=== PATIENT | male | born 1965 | race Caucasian/White ===

== ENCOUNTER 2020-06-02 09:15 | Outpatient (CLI) | payer OTHER, SELFPAY ==
[2020-06-02 10:04] LABS: Anion Gap 7 mmol/L (8-16); Blood Urea Nitrogen 31 mg/dL (9-20); Calcium 8.8 mg/dL (8.4-10.2); Carbon Dioxide 24 mmol/L (22-30); Chloride 106 mmol/L (98-107); Estimated Glomerular Filt Rate > 60; Glucose 167 mg/dL (75-110); Magnesium 1.8 mg/dL (1.6-2.3); Potassium 4.5 mmol/L (3.4-5.0); Sodium 137 mmol/L (137-145)
== END 2020-06-02 09:16 | disposition home or self-care (01) ==
PROVIDERS: PCP Family Medicine; Visit Provider Family Medicine
DX: R25.2 Cramp and spasm (principal)
CPT/HCPCS: 36415; 80048; 83735

== ENCOUNTER 2020-09-03 07:13 | Outpatient (CLI) | payer OTHER, SELFPAY ==
[2020-09-03 07:49] LABS: Cholesterol 144 mg/dL (0-200); HDL Direct 38 mg/dL; Triglycerides 246 mg/dL (<150)
[2020-09-03 07:59] LABS: Hemoglobin A1C 5.9 % (<5.7)
[2020-09-03 08:01] LABS: LDL Cholesterol Direct 48 mg/dL
== END 2020-09-03 07:14 | disposition home or self-care (01) ==
LOC: ANHLAB 07:14
PROVIDERS: PCP Family Medicine; Visit Provider Family Medicine
DX: E78.2 Mixed hyperlipidemia (principal); E11.9 Type 2 diabetes mellitus without complications
CPT/HCPCS: 36415; 80061; 83036

== ENCOUNTER 2020-09-20 13:55 | Inpatient (IN) | payer OTHER, SELFPAY ==
[2020-09-20] VITALS (35 sets, daily range): BP systolic 104–157; BP diastolic 64–88; PULSE 86–105; RESP 16–28; TEMP 37.8–38.3; O2SAT 90–99; BMI 40.3
--- NOTE | ~2020-09-20 | XR_ITS ---
EXAMINATION: XR chest 1V portable DATE: 09/23/2020 06:16 INDICATION: Shortness of breath and cough. COVID-19 pneumonia. TECHNIQUE: A single frontal view of the chest was obtained. COMPARISON: Chest single view 09/20/2020, 11/20/2019 FINDINGS: The lung volumes are small. There are patchy airspace opacities throughout the lungs bilate rally. No pleural effusion or pneumothorax. The heart size is normal. IMPRESSION: 1. Stable diffuse lung disease, consistent with pneumonia. Reviewed, dictated and finalized at location B. NT TECHNICAL PROFESSIONAL
--- NOTE | ~2020-09-20 | XR_ITS ---
EXAMINATION: XR chest 1V portable DATE: 09/20/2020 16:19 INDICATION: COVID positive. Cough and weakness. TECHNIQUE: frontal view of the chest was obtained. COMPARISON: Chest radiograph dated 11/20/2019 FINDINGS: Bilateral lung volumes are decreased with bilateral patchy and streaky airspace opacities throughout both lungs which is concerning for pneumonia. No pleural effusion or pneumothorax. The cardiomediasti nal silhouette is within normal limits for AP technique. IMPRESSION: 1. Diffuse bilateral lung disease which is concerning for pneumonia with differential including pulmo nary edema, atelectasis or some combination thereof. Reviewed, dictated and finalized at location A. OL GUARD IMPRESSION: 1. Diffuse bilateral lung disease which is concerning for pneumonia with differ ential including pulmonary edema, atelectasis or some combination thereof.
--- NOTE | ~2020-09-20 | XR_ITS ---
EXAMINATION: XR abdomen obstructive series DATE: 09/23/2020 16:23 INDICATION: Nausea and vomiting TECHNIQUE: Upright and supine views of the abdomen were obtained on four radiographs. COMPARISON: None. FINDINGS: There is no free intraperitoneal gas. No definitely dilated loops of bowel are identified. There is mild osteoarthritis of the hips. IMPRESSION: 1. Nonspecific bowel gas pattern. If there is concern for bowel obstruction, consider further evaluat ion with CT. Reviewed, dictated and finalized at location A. CTOR DATA MANAGEMENT IMPRESSION: 1. Nonspecific bowel gas pattern. If there is concern for bowel obstruction, co nsider further evaluation with CT.
--- NOTE | 2020-09-20 14:33 | ED.GENADULT ---
HPI - General Adult General Chief complaint: Weakness Stated complaint: covid Time Seen by Provider: 09/20/20 14:26 Source: patient History of Present Illness HPI narrative: Patient is a 55 y/o male complaining of generalized weakness, nausea and vomiting for 1 week. He has been vomiting 1-2 time daily. He states that he tested positive for COVID approximately 1 week ago. He has some fever up to 101.2 this morning. He also has a cough, but no SOB. Related Data Home Medications Medication Instructions Recorded Confirmed atorvastatin 20 mg PO DAILY 09/20/20 donepezil 23 mg PO DAILY 09/20/20 hydrochlorothiazide 12.5 mg PO DAILY 09/20/20 ketorolac (PF) 1 drp LEFTEYE Q12H 09/20/20 oxybutynin chloride 10 mg PO DAILY 09/20/20 09/20/20 sitagliptin [Januvia] 100 mg PO DAILY 09/20/20 09/20/20 Allergies Allergy/AdvReac Type Severity Reaction Status Date / Time Penicillins Allergy Rash Verified 09/20/20 14:34 lactose AdvReac Diarrhea Verified 09/20/20 14:34 metformin AdvReac Diarrhea Verified 09/20/20 14:34 Review of Systems Constitutional: Constitutional: Denies chills, Reports fever(s), Denies headache(s) and Reports weakness Eyes: Eyes: Denies blurry vision ENT: Denies headache(s) and Denies neck pain Cardiovascular: Cardiovascular: Denies chest pain and Denies dyspnea Respiratory: Respiratory: Reports cough and Denies dyspnea Gastrointestinal: Gastrointestinal: Denies abdominal pain, Denies diarrhea, Reports nausea and Reports vomiting Genitourinary: Genitourinary: Denies hematuria and Denies dysuria Musculoskeletal: Musculoskeletal: Denies back pain and Denies neck pain Neurologic: Denies headache(s) and Reports weakness Exam Const: General: no acute distress and well developed Orientation/consciousness: oriented to person, oriented to place, oriented to time and patient oriented x3 HENMT: Head: normocephalic Ears: external ears normal General nose exam: Normal external nose present Eyes: General: appearance normal, both eyes and all related structures Conjunctivae: conjunctivae normal Neck: Neck: normal visual inspection and full ROM Chest: Chest palpation & inspection: normal inspection of the chest and no tenderness Resp: Effort & Inspection: normal respiratory effort Auscultation: clear to auscultation bilaterally Cardio: Rate: tachycardic Rhythm: regular rhythm GI: GI Palp: No abdominal tenderness and Yes Soft to palpation Skin: General skin exam: normal color and turgor normal Neuro: General: oriented to person, oriented to place, oriented to time and patient oriented x3 Cognition (Neuro): normal cognition Extrem: General: normal to inspection, full ROM and no pedal edema Psych: Appearance: grossly normal Mental Status: mental status grossly normal Affect: normal affect Course Consultations Consultation #1: Discussed with SASH CLAMP OPERATOR Jeri, who agrees to admit. Date: 09/20/20 Time: 17:07 Vital Signs Vital signs: Vital Signs Respiratory Rate 21 H 09/20/20 14:25 Pulse Oximetry 98 09/20/20 14:25 Temperature 37.8 C H 09/20/20 14:30 Pulse Rate 100 09/20/20 17:53 Respiratory Rate 20 09/20/20 17:53 Blood Pressure 117/67 09/20/20 17:53 Pulse Oximetry 97 09/20/20 17:53 Medical Decision Making Vital Signs Vital Signs: Vital Signs Respiratory Rate 21 H 09/20/20 14:25 Pulse Oximetry 98 09/20/20 14:25 Temperature 37.8 C H 09/20/20 14:30 Pulse Rate 100 09/20/20 17:53 Respiratory Rate 20 09/20/20 17:53 Blood Pressure 117/67 09/20/20 17:53 Pulse Oximetry 97 09/20/20 17:53 Lab Data Result diagrams: 09/20/20 14:47 09/20/20 15:33 Labs: Lab Results 09/20/20 09/20/20 09/20/20 Range/Units 14:47 15:33 15:53 WBC 4.9 (4.5-10.0) K/mm3 RBC 4.29 L (4.6-6.20) M/mm3 Hgb 12.9 L (14.0-18.0) g/dL Hct 37.4 L (42.0-52.0) % MCV 87.2 (80-100) fl MCH 30.1 (26-34) pg MCHC 34.5 (32
[2020-09-20] MEDS: Please add drug allergy info to patient profile. 1 EACH XX (14:50)
[2020-09-20] MEDS: SODIUM CHLORIDE 0.9% IV 1,000 ML 999 ML IV CONT ×2 (14:50→16:24)
[2020-09-20] MEDS: ONDANSETRON INJ 4 MG/2 ML VIAL IV PUSH (14:50)
[2020-09-20 14:56] LABS: Basophils Percent Auto 0.4 % (0.2-1.2); Hematocrit 37.4 % (42.0-52.0); Hemoglobin 12.9 g/dL (14.0-18.0); Immature Granulocyte Absolute 0.05 K/mm3 (0.00-0.031); Lymphocytes Absolute Auto 0.27 K/mm3 (0.9-3.2); Lymphocytes Percent Auto 5.6 % (18.3-44.2); Mean Corpuscular HGB Conc 34.5 g/dl (32-36); Mean Corpuscular Hemoglobin 30.1 pg (26-34); Mean Corpuscular Volume 87.2 fl (80-100); Monocytes Absolute Auto 0.5 K/mm3 (0.1-0.6); Monocytes Percent Auto 10.1 % (2.6-8.5); Neutrophils Percent Auto 82.9 % (45.5-73.1); Platelet Count Result 194 k/mm3 (150-375); Red Blood Count 4.29 M/mm3 (4.6-6.20); Red Cell Distribution Width 13.8 % (11.5-14.5); White Blood Count 4.9 K/mm3 (4.5-10.0)
[2020-09-20 15:50] LABS: Alanine Aminotransferase 34 U/L (4-50); Albumin Level 3.4 g/dL (3.5-5.1); Alkaline Phosphatase 63 U/L (38-126); Anion Gap 8 mmol/L (8-16); Aspartate Amino Transferase 43 U/L (17-59); Bilirubin,Total 0.8 mg/dL (0.2-1.3); Blood Urea Nitrogen 48 mg/dL (9-20); Calcium 8.3 mg/dL (8.4-10.2); Carbon Dioxide 24 mmol/L (22-30); Chloride 98 mmol/L (98-107); Estimated CRCL calculation 54 ml/min; Estimated Glomerular Filt Rate 42; Glucose 134 mg/dL (75-110); Potassium 4.5 mmol/L (3.4-5.0); Sodium 130 mmol/L (137-145)
[2020-09-20 16:08] LABS: Add Urine Microscopic? YES; Appearance Urine Clear (Clear); Bacteria Urine Trace /hpf; Bilirubin Urine Negative (Negative); Blood Urine Negative (Negative); Color Urine Yellow (Yellow); Glucose Urine UA Negative (Negative); Ketones Urine Trace mg/dL (Negative); Leukocyte Esterase Ur Negative LEU/UL (Negative); Mucus Urine Rare /lpf; Nitrate Urine Negative (Negative); Protein Urine 1+ mg/dL (Negative); Specific Grav Ur 1.021 (1.001-1.035); Squamous Epithelial Cell Urine Rare /hpf (Few); Urobilinogen Urine Negative mg/dL (<2.0); WBC Urine 0-3 /hpf
--- NOTE | 2020-09-20 18:27 | ADMGEN ---
This patient, Gómez Lozano, was admitted to [facility] Room 309-01. Patient/family oriented to hospital policies and general routines including ID bracelet, bed and alarms, visiting hours, pain management, procedures, bathroom and other care routines, personal items, smoking policy, room service/diet, and visiting hours. Information on how to activate the Rapid Response Team has been discussed. Patient/Family are encouraged to report perceived risks to care and to ask questions if they do not understand what they are told or what they should do.
[2020-09-20] MEDS: ACETAMINOPHEN 325 MG TABLET 650 MG PO (20:28)
[2020-09-20] MEDS: guaiFENesin/DEXTROMETHORPHAN 10 ML UDC PO (20:28)
[2020-09-20 21:24] LABS: Glucose Point of Care 104 (65-105)
[2020-09-21] VITALS (7 sets, daily range): BP systolic 124–154; BP diastolic 59–83; PULSE 71–88; RESP 2–22; TEMP 36.3–37.3; O2SAT 91–94
[2020-09-21] MEDS: SODIUM CHLORIDE 0.9% IV 1,000 ML 100 ML IV CONT ×3 (02:30→23:17)
--- NOTE | 2020-09-21 04:42 | PM.IMHP ---
H&P: HPI History of Present Illness Date/Time: 09/21/20 04:42 Chief complaint: LUIS Narrative: This is a pleasant 55-year-old obese diabetic male who is known to have recently been diagnosed with COVID-19 approximately 1 week ago and who presented to the hospital with a complaint of generalized weakness, nausea, vomiting, and decreased p.o. intake of food and fluid. He reports he has been vomiting at least 1 or 2 times a day and has also had associated intermittent fevers. The patient also complains of a sporadic nonproductive cough but denies any significant shortness of breath, Chest pain, headache, sore throat, abdominal pain, dysuria, hematuria, or rectal bleeding. He denies any NSAID use or exposure to contrast material recently. The patient was evaluated emergency room yesterday and found to have mild acute renal injury on routine labs. He is not requiring any supplemental oxygen and is in no acute distress on room air. he was admitted to the hospital for IV hydration and on my encounter with him this morning he has no other specific complaints other than a mild sporadic cough, malaise, chills, and diffuse aches and joint pains. chest x-ray that was obtained did demonstrate diffuse bilateral lung disease which is concerning for pneumonia. No other complaints at this time. Review of Systems Review of Systems: All systems reviewed & are unremarkable except as noted in HPI and below PMFSH Past Medical History Medical History (Updated 09/21/20 @ 05:03 by Toby Monteiro MD) Diabetes mellitus H/O: HTN (hypertension) Hyperlipidemia Family History Family History Father Hypertension Diabetes mellitus High cholesterol Kidney malignancy Legal Guardian No problems noted. Mother High cholesterol Hypertension Social History Social History Smoking status: Never smoker Alcohol intake: never Substance use: never Gender identity (if verbalized by the patient): Male Spiritual care concerns: No Comments Surgical history is reviewed and noncontributory. Meds Home Medications and Allergies Home Medications Medication Instructions Recorded Confirmed Type atorvastatin 20 mg PO DAILY 09/20/20 09/20/20 History donepezil 23 mg PO DAILY 09/20/20 09/20/20 History hydrochlorothiazide 12.5 mg PO DAILY 09/20/20 09/20/20 History ketorolac (PF) 1 drp LEFTEYE Q12H 09/20/20 09/20/20 History oxybutynin chloride 10 mg PO DAILY 09/20/20 09/20/20 History sitagliptin [Januvia] 100 mg PO DAILY 09/20/20 09/20/20 History Allergies Allergy/AdvReac Type Severity Reaction Status Date / Time Penicillins Allergy Rash Verified 09/20/20 14:34 lactose AdvReac Diarrhea Verified 09/20/20 14:34 metformin AdvReac Diarrhea Verified 09/20/20 14:34 Vital Signs Vital Signs - 24 hr 09/20/20 14:25 09/20/20 14:26 09/20/20 14:30 Temperature 37.8 C H Pulse Rate 93 99 Respiratory Rate 21 H 19 21 H Blood Pressure 153/75 H 138/81 Pulse Oximetry 98 99 98 09/20/20 14:31 09/20/20 14:45 09/20/20 14:48 Temperature Pulse Rate Respiratory Rate 18 19 21 H Blood Pressure 138/81 137/71 Pulse Oximetry 99 98 98 09/20/20 15:00 09/20/20 15:01 09/20/20 15:02 Temperature Pulse Rate 89 90 90 Respiratory Rate 17 16 17 Blood Pressure 131/74 Pulse Oximetry 96 95 95 09/20/20 15:15 09/20/20 15:16 09/20/20 15:17 Temperature Pulse Rate 92 90 89 Respiratory Rate 21 H 23 H 22 H Blood Pressure 129/78 Pulse Oximetry 97 97 94 09/20/20 15:30 09/20/20 15:46 09/20/20 16:00 Temperature Pulse Rate 90 90 92 Respiratory Rate 28 H 24 H 18 Blood Pressure Pulse Oximetry 95 94 95 09/20/20 16:01 09/20/20 16:15 09/20/20 16:16 Temperature Pulse Rate 91 93 97 Respiratory Rate 22 H 20 28 H Blood Pressure 127/72 142/69 H Pulse Oximetry 95 96 09/20/20 16:17 09/20/20 16:30 1
[2020-09-21 06:51] LABS: Basophils Percent Auto 0.2 % (0.2-1.2); Hematocrit 32.6 % (42.0-52.0); Hemoglobin 10.8 g/dL (14.0-18.0); Immature Granulocyte Absolute 0.11 K/mm3 (0.00-0.031); Immature Granulocyte Percent A 2.4 % (0-0.5); Lymphocytes Absolute Auto 0.47 K/mm3 (0.9-3.2); Lymphocytes Percent Auto 10.4 % (18.3-44.2); Mean Corpuscular HGB Conc 33.1 g/dl (32-36); Mean Corpuscular Hemoglobin 29.1 pg (26-34); Mean Corpuscular Volume 87.9 fl (80-100); Mean Platelet Volume 12.3 fl (7.4-10.4); Monocytes Absolute Auto 0.5 K/mm3 (0.1-0.6); Monocytes Percent Auto 10.1 % (2.6-8.5); Neutrophils Absolute Auto 3.5 K/mm3 (1.3-6.7); Neutrophils Percent Auto 76.9 % (45.5-73.1); Platelet Count Result 171 k/mm3 (150-375); Red Blood Count 3.71 M/mm3 (4.6-6.20); Red Cell Distribution Width 13.8 % (11.5-14.5); White Blood Count 4.5 K/mm3 (4.5-10.0)
[2020-09-21 07:38] LABS: Anion Gap 6 mmol/L (8-16); Blood Urea Nitrogen 49 mg/dL (9-20); Calcium 7.9 mg/dL (8.4-10.2); Carbon Dioxide 25 mmol/L (22-30); Chloride 102 mmol/L (98-107); Estimated CRCL calculation 61 ml/min; Estimated Glomerular Filt Rate 49; Glucose 101 mg/dL (75-110); Magnesium 2.4 mg/dL (1.6-2.3); Potassium 4.2 mmol/L (3.4-5.0); Sodium 133 mmol/L (137-145)
[2020-09-21 08:40] LABS: Glucose Point of Care 117 (65-105)
[2020-09-21] MEDS: ATORVASTATIN 20 MG TABLET PO (09:31)
[2020-09-21] MEDS: ENOXAPARIN 40 MG/0.4 ML SYRINGE SUB-Q ×2 (09:31→21:24)
[2020-09-21] MEDS: DONEPEZIL HCL 10 MG TABLET 20 MG PO (09:32)
[2020-09-21] MEDS: guaiFENesin/DEXTROMETHORPHAN 10 ML UDC PO (09:32)
[2020-09-21 12:47] LABS: Glucose Point of Care 122 (65-105)
[2020-09-21 13:16] LABS: Hematocrit 32.7 % (42.0-52.0); Mean Corpuscular HGB Conc 33.6 g/dl (32-36); Mean Corpuscular Hemoglobin 29.9 pg (26-34); Mean Corpuscular Volume 88.9 fl (80-100); Mean Platelet Volume 11.2 fl (7.4-10.4); Platelet Count Result 160 k/mm3 (150-375); Red Blood Count 3.68 M/mm3 (4.6-6.20); Red Cell Distribution Width 13.8 % (11.5-14.5); White Blood Count 4.7 K/mm3 (4.5-10.0)
[2020-09-21] MEDS: PANTOPRAZOLE SODIUM IV 40 MG VIAL IV PUSH ×2 (15:20→21:25)
--- NOTE | 2020-09-21 17:01 | PM.IMPN ---
Progress Note: A&P Assessment and Plan (1) LUIS (acute kidney injury): Code(s): N17.9 - Acute kidney failure, unspecified Status: Acute Assessment and Plan: The patient has been placed in observation status. Acute kidney injury seems to be secondary to volume depletion from nausea, vomiting and poor PO intake of fluids. Continue IV hydration and has improved. If creatinine does not continue to fall will need renal sonogram to rule out obstruction (2) Weakness: Code(s): R53.1 - Weakness Status: Acute Assessment and Plan: Likely secondary to acute viral illness and poor PO intake of food and fluid. Continue supportive care and rehydration. PT/OT evaluation. (3) COVID-19 virus infection: Code(s): U07.1 - COVID-19 Status: Acute Assessment and Plan: Continue droplet isolation. The patient is not a candidate for Remdesivir or Dexamethasone as he is not requiring any supplemental oxygen. PRN bronchodilators, antitussive agents, antipyretics. Check inflammatory markers Rehydrated and but will have to be careful with COVID (4) Diabetes mellitus: Qualifiers: Diabetes mellitus type: type 2 Diabetes mellitus mcc insulin use: without mcc use Diabetes mellitus complication status: without complication Qualified Code(s): E11.9 - Type 2 diabetes mellitus without complications Code(s): E11.9 - Type 2 diabetes mellitus without complications Status: Chronic Assessment and Plan: Accuchecks, SSI Coverage, hypoglycemic protocol. Check A1c (5) H/O: HTN (hypertension): Code(s): Z86.79 - Personal history of other diseases of the circulatory system Status: Chronic Assessment and Plan: stable. And blood pressure good off HCTZ which him holding, secondary to acute renal failure and resume when appropriate. (6) Hyperlipidemia: Qualifiers: Hyperlipidemia type: unspecified Qualified Code(s): E78.5 - Hyperlipidemia, unspecified Code(s): E78.5 - Hyperlipidemia, unspecified Status: Chronic Assessment and Plan: Continue atorvastatin. (7) Upper GI bleed: Code(s): K92.2 - Gastrointestinal hemorrhage, unspecified Status: Acute Assessment and Plan: Dark stool today with no change in hemoglobin but his presenting symptoms and history probable GI bleed. Protonix Q 12. (8) DVT prophylaxis: Code(s): Z29.9 - Encounter for prophylactic measures, unspecified Status: Acute Assessment and Plan: Initially continuing Lovenox since he is high risk with his body habitus and COVID. If hemoglobin starts falling will need to change to mechanical prophylaxis Subjective Date/time seen: 09/21/20 17:01 Interval history: Date of visit 09/21. 55-year-old type 2 diabetic with recent COVID diagnosis admitted with anorexia weight loss dehydration. Today had a real dark tarry stool and hemoglobin remained stable at 11.0. No history of peptic disease but has been taking ibuprofen at home for the fever upwards of a 1000 mg a day. No EtOH does not smoke. No shortness of breath just malaise Exam Narrative: Exam Narrative: Blood pressure 136/70 pulse is 76 respirations 22 per minute temperature up to 38.5 Lungs clear CV regular rate rhythm systolic ejection murmur low-dose sternal border radiating toward the axilla Abdomen soft nontender Extremities without edema Neuro alert pleasant cooperative no focal deficits Objective Data Vital Signs Vital Signs: Vital Signs - 24 hr 09/20/20 17:15 09/20/20 17:16 09/20/20 17:17 Temperature Pulse Rate 100 105 H 100 Respiratory Rate 20 28 H 20 Blood Pressure 114/66 Pulse Oximetry 97 97 99 09/20/20 17:30 09/20/20 17:31 09/20/20 17:53 Temperature Pulse Rate 100 Respiratory Rate 19 16 20 Blood Pressure 117/76 117/67 Pulse Oximetry 94 97 97 09/20/20 18:38 09/20/20 20:00 09/20/20 20:28 Temperature 38.3 C H 37.8 C H 37.8 C H
[2020-09-21 17:23] LABS: Glucose Point of Care 107 (65-105)
[2020-09-21 22:30] LABS: Glucose Point of Care 113 (65-105)
[2020-09-22 04:00] VITALS: BP 148/64; PULSE 85; RESP 22; TEMP 36.6; O2SAT 94
[2020-09-22] MEDS: ONDANSETRON INJ 4 MG/2 ML VIAL IV PUSH ×3 (04:15→17:47)
[2020-09-22 06:50] LABS: D Dimer 1.15 ug/mL (<0.48)
[2020-09-22 06:55] LABS: Alanine Aminotransferase 33 U/L (4-50); Albumin Level 2.8 g/dL (3.5-5.1); Alkaline Phosphatase 52 U/L (38-126); Anion Gap 5 mmol/L (8-16); Aspartate Amino Transferase 46 U/L (17-59); Bilirubin,Total 0.6 mg/dL (0.2-1.3); Blood Urea Nitrogen 35 mg/dL (9-20); Calcium 7.8 mg/dL (8.4-10.2); Carbon Dioxide 23 mmol/L (22-30); Chloride 106 mmol/L (98-107); Estimated CRCL calculation 82 ml/min; Estimated Glomerular Filt Rate > 60; Glucose 124 mg/dL (75-110); Lactate Dehydrogenase 723 U/L (313-618); Potassium 4.6 mmol/L (3.4-5.0); Sodium 134 mmol/L (137-145)
[2020-09-22 08:00] VITALS: BP 126/63; PULSE 78; RESP 20; TEMP 36.6; O2SAT 91
[2020-09-22 08:15] LABS: Glucose Point of Care 116 (65-105)
[2020-09-22] MEDS: DONEPEZIL HCL 10 MG TABLET 20 MG PO (08:59)
[2020-09-22] MEDS: ATORVASTATIN 20 MG TABLET PO (08:59)
[2020-09-22] MEDS: ENOXAPARIN 40 MG/0.4 ML SYRINGE SUB-Q ×2 (09:00→20:47)
[2020-09-22] MEDS: PANTOPRAZOLE SODIUM IV 40 MG VIAL IV PUSH ×2 (09:00→20:47)
[2020-09-22] MEDS: SODIUM CHLORIDE 0.9% IV 1,000 ML 100 ML IV CONT ×2 (09:07→17:46)
[2020-09-22 12:00] VITALS: BP 150/71; PULSE 86; RESP 18; TEMP 36.5; O2SAT 93
[2020-09-22 12:17] LABS: Glucose Point of Care 125 (65-105)
--- NOTE | 2020-09-22 14:09 | PM.IMPN ---
Progress Note: A&P Assessment and Plan (1) LUIS (acute kidney injury): Code(s): N17.9 - Acute kidney failure, unspecified Status: Acute Assessment and Plan: The patient has been placed in observation status. Acute kidney injury seems to be secondary to volume depletion from nausea, vomiting and poor PO intake of fluids. Cr down to 1.1. Given COVID, will stop IV hydration and follow. Encouraged him to eat soft, bland food. (2) Weakness: Code(s): R53.1 - Weakness Status: Acute Assessment and Plan: Likely secondary to acute viral illness and poor PO intake of food and fluid. Ambulating in the room. Continue supportive care. (3) COVID-19 virus infection: Code(s): U07.1 - COVID-19 Status: Acute Assessment and Plan: COVID positive one week before admission. Continue droplet isolation. The patient is not a candidate for Remdesivir or Dexamethasone as he is not requiring any supplemental oxygen. Inflammatroy markers noted. Continue bronchodilators prn, antitussive agents, and antipyretics. Will stop IV fluids. Repeat CXR in the morning. (4) Diabetes mellitus: Qualifiers: Diabetes mellitus complication status: without complication Diabetes mellitus exterminator insulin use: without exterminator use Diabetes mellitus type: type 2 Qualified Code(s): E11.9 - Type 2 diabetes mellitus without complications Code(s): E11.9 - Type 2 diabetes mellitus without complications Status: Chronic Assessment and Plan: The patient's blood glucose was reviewed on 09/22 Glucose remains well controlled. Continue AccuCheks covering with sliding scale. Hypoglycemia protocol available as needed. Check A1c. (5) H/O: HTN (hypertension): Code(s): Z86.79 - Personal history of other diseases of the circulatory system Status: Chronic Assessment and Plan: Patient's blood pressure was reviewed on 09/22. Blood pressure remains well controlled. Will continue current medications. Continue to hold HCTZ (6) Hyperlipidemia: Qualifiers: Hyperlipidemia type: unspecified Qualified Code(s): E78.5 - Hyperlipidemia, unspecified Code(s): E78.5 - Hyperlipidemia, unspecified Status: Chronic Assessment and Plan: LFTs okay. Continue atorvastatin. (7) Upper GI bleed: Code(s): K92.2 - Gastrointestinal hemorrhage, unspecified Status: Acute Assessment and Plan: Dark stools yesterday. Hgb stable yesterday but not checked today. Continue Protonix. Repeat HH tomorrow. (8) DVT prophylaxis: Code(s): Z29.9 - Encounter for prophylactic measures, unspecified Status: Acute Assessment and Plan: Lovenox Subjective Date/time seen: 09/22/20 14:09 Interval history: Date of visit 09/22 55yo male with recent COVID diagnosis admitted with anorexia, weight loss and dehydration. Assuming care. Chart reviewed. Passing flatus and bowel movements. Had nausea and vomiting after breakfast this morning. Is refusing lunch now. No chest pain or shortness of breath. Up ambulating in the room. Exam Narrative: Exam Narrative: AF 97.7 150/71 86 18 93% RA Gen - NARD Chest - CTA bilaterally, nml RR CV - RRR S1/S2 Abd - Soft, obese, NT, Positive BS Ext - No pedal edema Neuro - Alert and oriented. Nonfocal exam. Psych - Nml mood and affect Skin - Warm and dry Objective Data Vital Signs Vital Signs: Vital Signs - 24 hr 09/21/20 16:00 09/21/20 20:00 09/21/20 23:50 Temperature 97.3 F L 98.2 F 98.0 F Pulse Rate 78 71 88 Respiratory Rate 2 L 22 H 22 H Blood Pressure 135/59 L 145/59 H 154/62 H Pulse Oximetry 93 94 92 09/22/20 04:00 09/22/20 08:00 09/22/20 12:00 Temperature 97.9 F 97.8 F 97.7 F Pulse Rate 85 78 86 Respiratory Rate 22 H 20 18 Blood Pressure 148/64 H 126/63 150/71 H Pulse Oximetry 94 91 93 Intake/Output Intake/Output: Intake & Output 09/19/20 1
[2020-09-22 14:28] LABS: IFOB Positive Control Positive; Immunochemical Fecal Occult Bl Negative (N)
[2020-09-22 16:00] VITALS: BP 137/63; PULSE 78; RESP 20; TEMP 36.4; O2SAT 94
[2020-09-22 17:54] LABS: Glucose Point of Care 131 (65-105)
[2020-09-22 19:30] VITALS: O2SAT 95
[2020-09-22 20:00] VITALS: BP 144/73; PULSE 83; RESP 22; TEMP 36.2; O2SAT 95
[2020-09-22 21:32] LABS: Glucose Point of Care 120 (65-105)
[2020-09-23] VITALS: BP 155/61; PULSE 81; RESP 22; TEMP 36.4; O2SAT 96
[2020-09-23] MEDS: ONDANSETRON INJ 4 MG/2 ML VIAL IV PUSH ×2 (01:11→10:32)
[2020-09-23 04:00] VITALS: BP 132/71; PULSE 83; RESP 22; TEMP 36.4; O2SAT 94
[2020-09-23 07:02] LABS: Hematocrit 30.5 % (42.0-52.0); Hemoglobin 10.2 g/dL (14.0-18.0); Mean Corpuscular HGB Conc 33.4 g/dl (32-36); Mean Corpuscular Hemoglobin 29.8 pg (26-34); Mean Corpuscular Volume 89.2 fl (80-100); Mean Platelet Volume 11.2 fl (7.4-10.4); Platelet Count Result 201 k/mm3 (150-375); Red Blood Count 3.42 M/mm3 (4.6-6.20); Red Cell Distribution Width 13.8 % (11.5-14.5)
[2020-09-23 07:16] LABS: Hemoglobin A1C 5.8 % (<5.7)
[2020-09-23 07:23] LABS: Anion Gap 3 mmol/L (8-16); Blood Urea Nitrogen 21 mg/dL (9-20); Calcium 7.8 mg/dL (8.4-10.2); Carbon Dioxide 24 mmol/L (22-30); Chloride 108 mmol/L (98-107); Estimated CRCL calculation 82 ml/min; Estimated Glomerular Filt Rate > 60; Glucose 103 mg/dL (75-110); Potassium 3.9 mmol/L (3.4-5.0); Sodium 135 mmol/L (137-145)
[2020-09-23 08:00] VITALS: O2SAT 94
[2020-09-23 08:33] LABS: Glucose Point of Care 105 (65-105)
[2020-09-23] MEDS: ENOXAPARIN 40 MG/0.4 ML SYRINGE SUB-Q ×2 (08:47→20:54)
[2020-09-23] MEDS: PANTOPRAZOLE SODIUM IV 40 MG VIAL IV PUSH ×2 (08:47→20:54)
[2020-09-23] MEDS: ATORVASTATIN 20 MG TABLET PO (08:47)
[2020-09-23] MEDS: DONEPEZIL HCL 10 MG TABLET 20 MG PO (08:47)
[2020-09-23 11:48] LABS: Glucose Point of Care 152 (65-105)
[2020-09-23 14:00] VITALS: BP 144/67; PULSE 81; RESP 16; TEMP 37.2; O2SAT 94
--- NOTE | 2020-09-23 14:52 | PM.IMPN ---
Progress Note: A&P Assessment and Plan (1) Nausea & vomiting: Code(s): R11.2 - Nausea with vomiting, unspecified Status: Acute Assessment and Plan: Patient continues to have nausea and vomiting. Oral intake intermittent with 20% at breakfast but 100% last night for dinner. No abd pain to suggest pancreatitis or biliary process. LFTs normal yesterday. Will add Reglan and check obstructive series to exclude ileus. Aricept listed as a home med but he takes benzapril, not aricept. This could be contributing to his nausea and vomiting. Aricept stopped. (2) LUIS (acute kidney injury): Code(s): N17.9 - Acute kidney failure, unspecified Status: Acute Assessment and Plan: The patient has been placed in observation status. Acute kidney injury seems to be secondary to volume depletion from nausea, vomiting and poor PO intake of fluids as well as from HCTZ. Cr down to 1.1 and stable. Follow (3) Weakness: Code(s): R53.1 - Weakness Status: Acute Assessment and Plan: Likely secondary to acute viral illness and poor PO intake of food and fluid. Continue supportive care. (4) COVID-19 virus infection: Code(s): U07.1 - COVID-19 Status: Acute Assessment and Plan: COVID positive one week before admission. Continue droplet isolation. The patient is not a candidate for Remdesivir or Dexamethasone as he is not requiring any supplemental oxygen. Inflammatroy markers noted. CXR showing no change. Continue bronchodilators prn, antitussive agents, and antipyretics. (5) Diabetes mellitus: Qualifiers: Diabetes mellitus complication status: without complication Diabetes mellitus terminal worker insulin use: without terminal worker use Diabetes mellitus type: type 2 Qualified Code(s): E11.9 - Type 2 diabetes mellitus without complications Code(s): E11.9 - Type 2 diabetes mellitus without complications Status: Chronic Assessment and Plan: A1c 5.8. The patient's blood glucose was reviewed on 09/23 Glucose remains well controlled. Continue AccuCheks covering with sliding scale. Hypoglycemia protocol available as needed. (6) H/O: HTN (hypertension): Code(s): Z86.79 - Personal history of other diseases of the circulatory system Status: Chronic Assessment and Plan: Patient's blood pressure was reviewed on 09/23 Blood pressure remains well controlled. Will continue to monitor. Continue to hold HCTZ and benzapril due to LUIS. (7) Hyperlipidemia: Qualifiers: Hyperlipidemia type: unspecified Qualified Code(s): E78.5 - Hyperlipidemia, unspecified Code(s): E78.5 - Hyperlipidemia, unspecified Status: Chronic Assessment and Plan: LFTs okay yesterday. Continue atorvastatin. (8) Upper GI bleed: Code(s): K92.2 - Gastrointestinal hemorrhage, unspecified Status: Acute Assessment and Plan: Dark stools on 09/21. Hgb dropped to 10.2 today. Continue Protonix. (9) DVT prophylaxis: Code(s): Z29.9 - Encounter for prophylactic measures, unspecified Status: Acute Assessment and Plan: Lovenox Subjective Date/time seen: 09/23/20 14:52 Interval history: Date of visit 09/23 55yo male with recent COVID diagnosis admitted with anorexia, weight loss and dehydration. Still with cough. Nml BMs. +nausea with vomiting still. No abd pain. No diarrhea Exam Narrative: Exam Narrative: AF 98.9 144/67 81 16 94% RA Gen - NARD lying flat in bed Chest - CTA bilaterally, nml RR CV - RRR S1/S2 Abd - Soft, obese, NT, Positive BS Ext - No pedal edema Psych - Nml mood and affect Skin - Warm and dry Objective Data Vital Signs Vital Signs: Vital Signs - 24 hr 09/22/20 16:00 09/22/20 19:30 09/22/20 20:00 Temperature 97.6 F 97.1 F L Pulse Rate 78 83 Respiratory Rate 20 22 H Blood Pressure 137/63 144/73 H Pulse Oximetry 94 95 95
[2020-09-23] MEDS: METOCLOPRAMIDE HCL INJ 10 MG/2 ML VIAL 5 MG IV PUSH (17:29)
[2020-09-23 18:19] LABS: Glucose Point of Care 138 (65-105)
[2020-09-23 20:00] VITALS: O2SAT 95
[2020-09-23 21:39] VITALS: BP 148/67; PULSE 86; RESP 22; TEMP 36.1; O2SAT 95
[2020-09-23 22:11] LABS: Glucose Point of Care 159 (65-105)
[2020-09-24] MEDS: METOCLOPRAMIDE HCL INJ 10 MG/2 ML VIAL 5 MG IV PUSH ×3 (00:38→12:49)
[2020-09-24 05:30] VITALS: BP 151/66; PULSE 93; RESP 20; TEMP 36.4; O2SAT 94
[2020-09-24 06:48] LABS: Alanine Aminotransferase 40 U/L (4-50); Albumin Level 2.9 g/dL (3.5-5.1); Alkaline Phosphatase 50 U/L (38-126); Anion Gap 4 mmol/L (8-16); Aspartate Amino Transferase 52 U/L (17-59); Bilirubin,Total 0.8 mg/dL (0.2-1.3); Blood Urea Nitrogen 19 mg/dL (9-20); CRP 2.9 mg/dL (<1.0); Calcium 8.2 mg/dL (8.4-10.2); Carbon Dioxide 23 mmol/L (22-30); Chloride 110 mmol/L (98-107); Estimated CRCL calculation 90 ml/min; Estimated Glomerular Filt Rate > 60; Glucose 124 mg/dL (75-110); Lactate Dehydrogenase 780 U/L (313-618); Potassium 4.4 mmol/L (3.4-5.0); Sodium 137 mmol/L (137-145)
[2020-09-24 06:53] LABS: Hematocrit 33.5 % (42.0-52.0); Hemoglobin 11.2 g/dL (14.0-18.0); Mean Corpuscular HGB Conc 33.4 g/dl (32-36); Mean Corpuscular Hemoglobin 30.2 pg (26-34); Mean Corpuscular Volume 90.3 fl (80-100); Mean Platelet Volume 11.9 fl (7.4-10.4); Platelet Count Result 193 k/mm3 (150-375); Red Blood Count 3.71 M/mm3 (4.6-6.20); Red Cell Distribution Width 13.8 % (11.5-14.5); White Blood Count 5.3 K/mm3 (4.5-10.0)
[2020-09-24 08:00] VITALS: O2SAT 94
[2020-09-24 08:17] LABS: Glucose Point of Care 124 (65-105)
[2020-09-24] MEDS: PANTOPRAZOLE SODIUM IV 40 MG VIAL IV PUSH (08:30)
[2020-09-24] MEDS: ENOXAPARIN 40 MG/0.4 ML SYRINGE SUB-Q (08:30)
[2020-09-24] MEDS: ATORVASTATIN 20 MG TABLET PO (08:30)
[2020-09-24 12:23] LABS: Glucose Point of Care 118 (65-105)
[2020-09-24 14:00] VITALS: BP 162/72; PULSE 104; RESP 20; TEMP 36.3; O2SAT 98
--- NOTE | 2020-09-24 14:21 | PM.DS ---
DS: Admitting Diagnosis Admitting Diagnosis Admitting Diagnosis: LUIS DS: Discharge Diagnosis Discharge Diagnosis (1) Nausea & vomiting: Code(s): R11.2 - Nausea with vomiting, unspecified Status: Acute Assessment and Plan: Patient continued to have nausea and vomiting. No abd pain to suggest pancreatitis or biliary process. LFTs normal. We added Reglan. Obstructive series normal. Aricept listed as a home med but he takes benzapril, not aricept. Aricept was stopped and this was explained to the patient. He states he was curious why he was receiving this but did not ask anyone. This could be contributing to his nausea and vomiting. Aricept stopped. Nausea resolved. (2) LUIS (acute kidney injury): Code(s): N17.9 - Acute kidney failure, unspecified Status: Acute Assessment and Plan: The patient has been placed in observation status. Acute kidney injury seems to be secondary to volume depletion from nausea, vomiting and poor PO intake of fluids. Cr down to 1.0. Given COVID, we stopped IV hydration. (3) Weakness: Code(s): R53.1 - Weakness Status: Acute Assessment and Plan: Likely secondary to acute viral illness and poor PO intake of food and fluid. Ambulating in the room now (4) COVID-19 virus infection: Code(s): U07.1 - COVID-19 Status: Acute Assessment and Plan: COVID positive one week before admission. Continue droplet isolation. The patient is not a candidate for Remdesivir or Dexamethasone as he is not requiring any supplemental oxygen. Inflammatory markers followed. Treated with bronchodilators prn, antitussive agents, and antipyretics. (5) Diabetes mellitus: Qualifiers: Diabetes mellitus type: type 2 Diabetes mellitus prison insulin use: without prison use Diabetes mellitus complication status: without complication Qualified Code(s): E11.9 - Type 2 diabetes mellitus without complications Code(s): E11.9 - Type 2 diabetes mellitus without complications Status: Chronic Assessment and Plan: A1c 5.8. The patient's blood glucose was monitored closely. Glucose remained well controlled. We continued AccuCheks covering with sliding scale. Hypoglycemia protocol available as needed. (6) H/O: HTN (hypertension): Code(s): Z86.79 - Personal history of other diseases of the circulatory system Status: Chronic Assessment and Plan: Patient's blood pressure was monitored closely. Blood pressure remained well controlled. Will continue current medications. Continue to hold HCTZ but resume benzapril at discharge. . (7) Hyperlipidemia: Qualifiers: Hyperlipidemia type: unspecified Qualified Code(s): E78.5 - Hyperlipidemia, unspecified Code(s): E78.5 - Hyperlipidemia, unspecified Status: Chronic Assessment and Plan: LFTs okay. We continued atorvastatin. (8) Upper GI bleed: Code(s): K92.2 - Gastrointestinal hemorrhage, unspecified Status: Acute Assessment and Plan: Dark stools one day but not persistent. Hgb remained stable. DS: Summary Hospital Course Reason for hospitalization: 55yo male here for weakness after recently being diagnosed with COVID. Please see H&P for details Hospital Course: Please see details about hospital course above Status at Discharge Cognitive/behavioral status at discharge: PATIENT IS STABLE FOR DISCHARGE Time Spent with Patient Time attestation: Total time spent providing and/or coordinating discharge services:36 minutes Time spent: Greater than 30 minutes Exam Narrative: Exam Narrative: AF 97.6 151/66 93 20 94% RA Gen - NARD lying almost flat in bed Chest - CTA bilaterally, nml RR CV - RRR S1/S2 Abd - Soft, obese, NT, Positive BS Ext - No pedal edema Psych - Nml mood and affect Skin - Warm and dry DS: Data Data Completed and Pending Labs on day of discharge: Labs
--- NOTE | 2020-09-24 17:08 | PC.NURSE ---
Pt is being discharged on this date. Pt has had IV removed and discharge paperwork reviewed. opportunities for questions provided. Pt exhibited good understanding of discharge instructions. Pt has requested to be wheeled to his car by staff.
[2020-09-24 17:57] LABS: Glucose Point of Care 156 (65-105)
== END 2020-09-24 17:15 | disposition home or self-care (01) | DRG 178 ==
LOC: ANHED 17:11 → ANH3MEDSUR 17:29
PROVIDERS: Family Medicine; Admitting Provider Internal Medicine; Emergency Provider Emergency Medicine; PCP Family Medicine; Visit Provider Internal Medicine
DX: U07.1 COVID-19 (principal); N17.9 Acute kidney failure, unspecified; K92.2 Gastrointestinal hemorrhage, unspecified; Z68.41 Body mass index [BMI] 40.0-44.9, adult; E11.9 Type 2 diabetes mellitus without complications; E78.5 Hyperlipidemia, unspecified; E66.01 Morbid (severe) obesity due to excess calories; E86.0 Dehydration; R63.0 Anorexia; R11.2 Nausea with vomiting, unspecified; Z86.79 Personal history of other diseases of the circulatory system
CPT/HCPCS: 36415; 71045; 74019; 80048; 80053; 80076; 81001; 82274; 82728; 83036; 83615; 83735; 85025; 85027; 85380; 86140; 86850; 86900; 86901; 96361; 96372; 96374; 96375; 96376; 99285; A9270; C9113; G0378; J1650; J2405; J2765; J7030

== ENCOUNTER 2020-10-04 16:00 | Inpatient (IN) | payer OTHER, SELFPAY ==
--- NOTE | ~2020-10-04 | US_ITS ---
EXAMINATION: US venous doppler [facility] DATE: 10/05/2020 08:45 INDICATION: Lower limb swelling. TECHNIQUE: Grayscale ultrasound images without and with compression and Doppler ultrasound images of the bilateral lower extremity veins were obtained. COMPARISON: None. FINDINGS: The visualized portions of right common femoral vein, profunda (deep) femoral vein, femoral vein, pop liteal vein, posterior tibial veins, and greater saphenous vein outflow are patent. There is thrombus in the right peroneal veins. The visualized portions of left common femoral vein, profunda femoral vein, femoral vein, popliteal v ein, peroneal veins, posterior tibial veins, and greater saphenous vein outflow are patent. IMPRESSION: 1. Acute deep vein thrombosis involving the right peroneal veins. Reviewed, dictated and finalized at location A. HI PROGRAMMER
--- NOTE | ~2020-10-04 | XR_ITS ---
EXAMINATION: XR abdomen/kub 1V INDICATION: Abdominal distention and constipation TECHNIQUE: Supine views of the abdomen are obtained on three radiographs. COMPARISON: 09/23/2020, 10/04/2020 FINDINGS: No dilated loops of bowel are identified. There is an expected volume of colonic stool. The re is moderate osteoarthritis of the hips. IMPRESSION: 1. No radiographic correlate for the patient's symptoms. Reviewed, dictated and finalized at location A. GER OF HOUSEKEEPING
--- NOTE | ~2020-10-04 | US_ITS ---
US renal BI 10/05/2020 17:35 Procedure: Realtime transabdominal ultrasound of the kidneys and bladder. Indication: Acute renal insufficiency Comparison: No prior studies for comparison. Findings: Renal echotexture is normal bilaterally without hydronephrosis, contour deforming mass or r enal calculus. The right kidney measures 11.8 cm and left kidney measures 13.3 cm. Bladder not well distended for evaluation. Impression: 1: Unremarkable renal ultrasound. No stones, masses or hydronephrosis. Reviewed, dictated and finalized at location A. ERN SCRATCHER Impression: 1: Unremarkable renal ultrasound. No stones, masses or hydronephrosis.
--- NOTE | ~2020-10-04 | XR_ITS ---
EXAMINATION: XR chest 1V portable EXAM DATE: 10/04/2020 17:10 INDICATION: Shortness of breath, weakness, atrial fibrillation, diarrhea. COVID positive diagnosed la st month. TECHNIQUE: Portable AP frontal chest x-ray was obtained. Comparison is made to prior examination from 09/23/2020. FINDINGS: Interval improvement in previously seen scattered ill-defined acute airspace disease, opaci ties now appear more linear consistent with atelectasis/scarring, resolving COVID pneumonia. There is no pneumothorax suspected. There are no pleural effusions. Low lung volume. The cardiomediastinal si lhouette is prominent but magnified on this AP technique. IMPRESSION: Scattered predominantly linear scarring/atelectasis, resolving COVID pneumonia. Reviewed, dictated and finalized at location A. MILL OPERATOR IMPRESSION: Scattered predominantly linear scarring/atelectasis, resolving COVI D pneumonia.
--- NOTE | ~2020-10-04 | CT_ITS ---
EXAMINATION: CTA chest PE abdomen pel EXAM DATE: 10/04/2020 17:58 INDICATION: sob with exertion, ddi jodee. COVID positive. TECHNIQUE: Spiral CTA of the chest (pulmonary arteries) was performed with 100 cc Omnipaque 350 intr avenous contrast injection. Images were acquired during the pulmonary arterial phase. Coronal maxi mum intensity projection 3D-reconstructions were created by the technologist on dedicated workstation . Axial, coronal and sagittal reformatted images were reviewed. Spiral CT of the abdomen and pelvis was then performed with the same intravenous contrast injection. Axial, coronal and sagittal reform atted images were reviewed. The dose-length product (DLP) for this examination was 2434.41 mGy-cm. The exposure was tailored according to patient size (auto mA exposure control), and iterative recons truction (ASIR) was used as additional dose reduction technique. FINDINGS: CHEST: Scattered segmental right pulmonary emboli and left basilar segmental pulmonary emboli. No la rge or central pulmonary emboli. No thoracic aortic dissection. Numerous scattered small groundglas s opacities distribution consistent with COVID pneumonia. Trace right pleural effusion. Tracheobron chial tree is patent. There is no mediastinal, hilar or axillary lymphadenopathy. There is no pne umothorax. Heart normal in size. There is moderate coronary arterial calcification, arterial scle rosis. ABDOMEN PELVIS: There are large intra-abdominal lipomas displacing kidneys, bowel. Largest lipoma or lipomatous anterior to the right kidney measuring 23 x 25 x 37 cm. Left adrenal gland lesion measuri ng 2.5 cm, statistically most likely adenoma but not meeting density criteria. There is a low-density right adrenal gland lesion measuring 2.1 cm, but still not meeting density criteria for adenoma. Tra ce perihepatic ascites. Spleen, pancreas are unremarkable. There are gallstones within an otherwise unremarkable gallbladder. No evidence of obstructive biliar y disease. Portal and splenic veins are patent. Kidneys enhance symmetrically. There is no hydrone phrosis. Patient has likely had prostatectomy. The bladder is undistended at time of imaging. Th ere is no retroperitoneal or pelvic lymphadenopathy. There is mild scattered arteriosclerotic disea se. The stomach and small bowel are unremarkable. There is expected amount of colonic stool. No free i ntraperitoneal gas. There are no osteoblastic or osteolytic lesions identified. IMPRESSION: 1. Positive for scattered segmental pulmonary emboli bilaterally. I discussed this with Dr. Wong. 2. Indeterminate bilateral adrenal gland lesions; consider nonemergent MRI abdomen without and with contrast. 3. Large intra-abdominal lipomas. 4. Scattered small groundglass opacities, likely resolving COVID pneumonia. 5. Trace right pleural effusion and ascites. 6. Cholelithiasis. Reviewed, dictated and finalized at location A. R QUALITY MANAGER IMPRESSION: 1. Positive for scattered segmental pulmonary emboli bilaterally. I discussed this with Dr. Wong. 2. Indeterminate bilateral adrenal gland lesions; consider nonemergent MRI abd omen without and with contrast. 3. Large intra-abdominal lipomas. 4. Scattered small groundglass opacities, likely resolving COVID pneumonia. 5. Trace right pleural effusion and ascites. 6. Cholelithiasis.
--- NOTE | ~2020-10-04 | XR_ITS ---
EXAMINATION: XR chest 2V EXAM DATE: 10/09/2020 10:35 INDICATION: Shortness of breath. COVID pneumonia. TECHNIQUE: Portable AP frontal chest x-ray was obtained. Comparison is made to prior examination from 10/04/2020. FINDINGS: Suspect improvement in the bilateral airspace disease, now appearance most consistent with atelectasis. Low lung volume, poor inspiration. Cardiomediastinal silhouette is normal. There is no p neumothorax suspected. There are no pleural effusions. IMPRESSION: Scattered predominantly linear opacities consistent with atelectasis. Reviewed, dictated and finalized at location A. UM CURATOR IMPRESSION: Scattered predominantly linear opacities consistent with atelectas is.
[2020-10-04 16:11] VITALS: BP 133/83; PULSE 109; RESP 20; TEMP 35.7; O2SAT 100
[2020-10-04 16:20] VITALS: PULSE 108
--- NOTE | 2020-10-04 16:25 | ECG_ITS ---
Measurements Intervals [place] Rate: 109 P: 18 [place]: 138 QRS: -17 QRSD: 93 T: 34 QT: 310 QTc: 418 Interpretive Statements SINUS TACHYCARDIA LOW QRS VOLTAGE IN LIMB LEADS BASELINE ARTIFACT- I, II, III, AVR, AVL, AVF, V3-V4 ABNORMAL ECG Electronically Signed On 10-05-2020 8:02:01 LEAD CASE MANAGER by Yoseph Mccray D.O.
--- NOTE | 2020-10-04 16:26 | ED.GENADULT ---
HPI - General Adult General Chief complaint: Weakness Stated complaint: weakness, n/v, covid at thanksgiving Time Seen by Provider: 10/04/20 16:12 Source: patient Mode of arrival: ambulatory Limitations: no limitations History of Present Illness HPI narrative: This patient is a 55 year old male with history of HTN, DM who presents for evaluation of weakness and shortness of breath. He states he was diagnosed with COVID 09/12/20. He has been cleared by the department of health. He states he has been unable to eat over past 3 days . He reports intermittent nausea and vomiting. He also reports is feeling weak and short of breath with exertion for 2 days. He denies chest pain, abdominal pain, fever or chills. HE denies lung or heart disease. He denies leg edema. Nursing staff noticed that patient's abdomen is distended and he states that is normal. Related Data Home Medications Medication Instructions Recorded Confirmed oxybutynin chloride 10 mg 10 mg PO DAILY 01/28/20 01/28/20 tablet,extended release 24 hr Allergies Allergy/AdvReac Type Severity Reaction Status Date / Time lactose Allergy Intermediate DIARRHEA Verified 06/02/20 08:14 Penicillins Allergy Unknown Rash Verified 06/02/20 08:14 Review of Systems Review of Systems: All systems reviewed & are unremarkable except as noted in HPI and below Constitutional: Constitutional: Denies chills, Reports fatigue, Denies fever(s) and Reports weakness Cardiovascular: Cardiovascular: Denies chest pain and Denies radiating jaw, neck or arm pain Respiratory: Respiratory: Reports dyspnea Gastrointestinal: Gastrointestinal: Denies abdominal pain, Reports constipation, Reports nausea and Reports vomiting Comments: last BM several days ago. [facility] Past Medical History Medical History (Updated 10/04/20 @ 18:36 by Geena Wong MD) Essential hypertension Leg cramp Mixed hyperlipidemia Retinopathy Uncontrolled type 2 diabetes mellitus without complication, with long-term current use of insulin Family History Family History Father Family history of cardiovascular disease Family history of malignant neoplasm of kidney Grandparent Family history of cardiovascular disease Social History Social History Smoking status: Never smoker Alcohol intake: never Exam Const: General: alert and ill appearing acutely and chronically Orientation/consciousness: patient oriented x3 Eyes: EOM: EOMs intact bilaterally Chest: Chest palpation & inspection: normal inspection of the chest Resp: Effort & Inspection: normal respiratory effort and no use of accessory muscles Auscultation: clear to auscultation bilaterally Cardio: Rate: tachycardic Rhythm: regular rhythm Heart sounds: no murmurs GI: Inspection: distended GI Palp: Yes Soft to palpation, No Tenderness to palpation present (GI), No Guarding due to palpation present (GI) and No Rigid due to palpation Auscultation: normal bowel sounds Skin: General skin exam: normal color Neuro: General: patient oriented x3 and moves all extremities Course Reevaluation(s) Reevaluation #1: Patient presented for nausea, vomiting, weakness. He had CTA PE and abdomen/pelvis due for evaluation of PE and obstruction. He was found to have PE and intraabdominal lipomas. He understands he will be admitted. Date: 10/04/20 Time: 18:34 Consultations Consultation #1: I discussed case with Jeri Eldridge. She accepts patient to medical floor with PE, acute renal failure. Date: 10/04/20 Time: 18:34 Vital Signs Vital signs: Vital Signs Temperature 96.2 F L 10/04/20 16:11 Pulse Rate 109 H 10/04/20 16:11 Respiratory Rate 20 10/04/20 16:11 Blood Pressure 133/83 10/04/20 16:11 Pulse Oximetry 100 10/04/20 16:11 Temperature 96.2 F L 10/04/20 16:11 Pulse Rate 95 10/04/20 18:23 Respiratory Rat
[2020-10-04 16:39] LABS: Glucose Point of Care 241 (65-105)
[2020-10-04 16:44] LABS: Basophils Percent Auto 0.3 % (0.2-1.2); Eosinophils Percent Auto 0.1 % (0-4.4); Hematocrit 41.5 % (42.0-52.0); Hemoglobin 13.6 g/dL (14.0-18.0); Immature Granulocyte Absolute 0.49 K/mm3 (0.00-0.031); Immature Granulocyte Percent A 3.2 % (0-0.5); Lymphocytes Absolute Auto 0.48 K/mm3 (0.9-3.2); Lymphocytes Percent Auto 3.1 % (18.3-44.2); Mean Corpuscular HGB Conc 32.8 g/dl (32-36); Mean Corpuscular Hemoglobin 29.3 pg (26-34); Mean Corpuscular Volume 89.4 fl (80-100); Mean Platelet Volume 11.7 fl (7.4-10.4); Monocytes Percent Auto 6.2 % (2.6-8.5); Neutrophils Absolute Auto 13.4 K/mm3 (1.3-6.7); Neutrophils Percent Auto 87.1 % (45.5-73.1); Platelet Count Result 325 k/mm3 (150-375); Red Blood Count 4.64 M/mm3 (4.6-6.20); Red Cell Distribution Width 13.8 % (11.5-14.5); White Blood Count 15.4 K/mm3 (4.5-10.0)
[2020-10-04 16:49] LABS: Alveolar/Arterial O2 Gradient 74.9 mmHg; Base Excess ABG -6.5 mEq/l (+/-2.0); Carboxyhemoglobin 0.5 % THb (0-2.0); Fractional Inspired Oxygen 21 %; HCO3 ABG 17.9 mEq/l (22.0-26.0); Methemoglobin ABG 0.3 %THb (0-1.5); Oxyhemoglobin 66.2 % THb (90.0-100.0); PCO2 ABG 32.6 mmHg (35.0-45.0); pH ABG 7.358 (7.350-7.450)
[2020-10-04 16:53] LABS: Oxygen Saturation ABG 66.9 % (95.0-100.0); PO2 ABG 35.8 mmHg (80.0-100.0)
[2020-10-04 16:54] LABS: Device ROOM AIR; Modified Allen's Test Pass; Site Drawn LEFT RADIAL
[2020-10-04 16:55] LABS: INR 1.1; Prothrombin Time 14.6 Seconds (11.1-14.7)
[2020-10-04 16:56] LABS: Partial Thromboplastin Time 33.4 SECONDS (22.3-36.8)
[2020-10-04 16:57] LABS: Alanine Aminotransferase 29 U/L (4-50); Albumin Level 2.8 g/dL (3.5-5.1); Alkaline Phosphatase 84 U/L (38-126); Anion Gap 10 mmol/L (8-16); Aspartate Amino Transferase 49 U/L (17-59); Bilirubin,Total 1.1 mg/dL (0.2-1.3); Blood Urea Nitrogen 72 mg/dL (9-20); Calcium 8.4 mg/dL (8.4-10.2); Carbon Dioxide 21 mmol/L (22-30); Chloride 93 mmol/L (98-107); Estimated CRCL calculation 59 ml/min; Estimated Glomerular Filt Rate 45; Glucose 244 mg/dL (75-110); Magnesium 2.5 mg/dL (1.6-2.3); Potassium 4.6 mmol/L (3.4-5.0); Sodium 124 mmol/L (137-145)
[2020-10-04 17:05] LABS: NT Pro B Type Natriuretic Pept 409 PG/ML (5-100)
[2020-10-04 17:12] LABS: D Dimer 5.29 ug/mL (<0.48)
[2020-10-04] MEDS: LACTATED RINGERS 1,000 ML 999 ML IV CONT (17:35)
[2020-10-04 18:01] VITALS: BP 134/85; PULSE 98; RESP 17; O2SAT 98
[2020-10-04 18:23] VITALS: BP 135/94; PULSE 95; RESP 17; O2SAT 100
[2020-10-04] MEDS: ENOXAPARIN 120 MG/0.8 ML SYRINGE SUB-Q (18:34)
[2020-10-04] MEDS: SODIUM CHLORIDE 0.9% IV 1,000 ML 999 ML IV CONT (19:05)
--- NOTE | 2020-10-04 20:14 | ADMGEN ---
This patient, Gómez Lozano, was admitted to Medical Room 259-01. Patient/family oriented to hospital policies and general routines including ID bracelet, bed and alarms, visiting hours, pain management, procedures, bathroom and other care routines, personal items, smoking policy, room service/diet, and visiting hours. Information on how to activate the Rapid Response Team has been discussed. Patient/Family are encouraged to report perceived risks to care and to ask questions if they do not understand what they are told or what they should do.
--- NOTE | 2020-10-04 20:16 | PM.IMHP ---
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 He reports that his cough has improved. He attempted to come back to work this past week but had to go home early because he was exhausted at half way through his shift. Tonight he he denies any fevers, chest pain, palpitations, abdominal pain, leg swelling, leg redness, or leg pain. The patient has no previous history of blood clots. He also does report decreased PO intake of food and fluid over the past three days. Routine labs obtained in the ER demonstrated acute renal failure, hyponatremia and leukocytosis of 15,400. CTA chest revealed scattered segmental pulmonary emboli bilaterally. The pateint has no other complaints. He is in no acute distress on room air and not requiring any supplemental oxygen. Review of Systems Review of Systems: All systems reviewed & are unremarkable except as noted in HPI and below PMFSH Past Medical History Medical History Cholelithiasis Diabetes mellitus Essential hypertension H/O: HTN (hypertension) Hyperlipidemia Leg cramp Lesion of adrenal gland Chest CTA 10/04/20 shows bilateral adrenal gland lesions, 2.5cm on the left and 2.1cm on right. Mixed hyperlipidemia Retinopathy Uncontrolled type 2 diabetes mellitus without complication, with long-term current use of insulin Surgical History Surgical History History of inguinal hernia repair History of prostatectomy Family History Family History Father Family history of cardiovascular disease Family history of malignant neoplasm of kidney Diabetes mellitus Hypertension Hypercholesterolemia Grandparent Family history of cardiovascular disease Mother Hypercholesterolemia Hypertension Father Hypertension Diabetes mellitus High cholesterol Kidney malignancy Legal Guardian No problems noted. Mother High cholesterol Hypertension Social History Social History Smoking status: Never smoker Additional smoking assessment comments: only smoked in high school Alcohol intake: never Substance use: never Gender identity (if verbalized by the patient): Male Spiritual care concerns: No Meds Home Medications and Allergies Home Medications Medication Instructions Recorded Confirmed Type oxybutynin chloride 10 mg 10 mg PO DAILY 01/28/20 10/04/20 History tablet,extended release 24 hr benazepril 20 mg tablet 20 mg PO DAILY #90 tablet 06/11/20 10/04/20 Rx hydrochlorothiazide 12.5 mg tablet 12.5 mg PO DAILY #90 tablet 06/24/20 10/04/20 Rx atorvastatin 20 mg tablet 20 mg PO DAILY #90 tablet 07/21/20 10/04/20 Rx sitagliptin 100 mg tablet 100 mg PO DAILY #90 tablet 07/21/20 10/04/20 Rx Januvia 100 mg PO DAILY 09/20/20 09/20/20 History atorvastatin 20 mg PO DAILY 09/20/20 09/20/20 History hydrochlorothiazide 12.5 mg PO DAILY 09/20/20 09/20/20 History ketorolac (PF) 1 drp LEFTEYE Q12H 09/20/20 09/20/20 History oxybutynin chloride 10 mg PO DAILY 09/20/20 09/20/20 History benazepril 20 mg PO DAILY 09/23/20 09/23/20 History metoclopramide HCl [Reglan] 5 mg PO AC #10 tablet 09/24/20 Rx acetaminophen 650 mg PO Q4H PRN 10/04/20 10/04/20 History ketorolac 1 drp BID 10/04/20 10/04/20 History Allergies Allergy/AdvReac Type Severity Reaction Status Date / Time lactose Allergy Intermediate DIARRHEA Verified 10/06/20 12:14 Penicillins Allergy Unknown Rash Verified 10/06/20 12:14 metformin Allergy Diarrhea Verified 10/06/20 12:14 Vital Signs Vital Signs - 24 hr 10/04/20 16:11 12
[2020-10-04 20:32] VITALS: PULSE 109
[2020-10-04] MEDS: SODIUM CHLORIDE 0.9% IV 1,000 ML 125 ML IV CONT (20:36)
[2020-10-04 20:51] VITALS: BP 131/98; PULSE 113; RESP 20; TEMP 36.3; O2SAT 100; BMI 41.1
[2020-10-04] MEDS: ONDANSETRON INJ 4 MG/2 ML VIAL IV PUSH (20:58)
[2020-10-04] MEDS: KETOROLAC 0.5% OP SOLN 5 ML BOTTLE 1 DROP LEFT EYE (22:27)
[2020-10-04 22:31] LABS: Glucose Point of Care 210 (65-105)
[2020-10-05] VITALS (10 sets, daily range): BP systolic 121–142; BP diastolic 59–70; PULSE 88–111; RESP 16–20; TEMP 36.1–36.4; O2SAT 95–97
--- NOTE | 2020-10-05 | ECHO_ITS ---
Patient Info Name: Gómez Lozano Age: 55 years : 1965 Gender: Male Ht: 68 in Wt: 270 lbs BSA: 2.48 m2 HR: 93 bpm BP: 140 / 62 mmHg Heart Rhythm: Sinus Rhythm Technical Quality: Fair Exam Date: 10/05/2020 11:16 AM Exam Location: [facility] Card Pulmonary Patient Status: Inpatient Admit Date: 10/04/2020 Staff Ordering Physician: Tram De Luna PA-C Tooling Engineer: Natasha Block RDCS Attending Provider: Tram De Luna PA-C Referring Physician: Annamarie FERRER; Exam Type: CA echo doppler color flow Study Info Indications I26.99 - Other pulmonary embolism without acute cor pulmonale Complete two-dimensional, color flow and Doppler transthoracic echocardiogram is performed. Summary 1. Complete two-dimensional, color flow and Doppler transthoracic echocardiogram is performed. 2. Hyperdynamic appearing LV function. 3. No evidence of RV dilation. 4. No significant valvular abnormality. Left Ventricle Left ventricular chamber dimension is normal. Left ventricular systolic function is hyperdynamic, estimated at 65-70%. The left ventricular diastolic function is normal. Right Ventricle Right ventricular chamber dimension is normal. Left Atria Left atrial chamber dimension is normal. Right Atria Right atrial chamber dimension is normal. Aortic Valve The aortic valve is normal. Pulmonic Valve The pulmonic valve is normal. Mitral Valve The mitral valve has normal leaflets. Tricuspid Valve The tricuspid valve leaflets are normal. Pericardium/Pleural The pericardium appears normal. Aorta The aortic root size at the sinus of Valsalva is normal. Left Ventricular Outflow Tract Name Value Normal LVOT 2D LVOT Diameter 2.0 cm LVOT Doppler LVOT Peak Gradient 6 mmHg LVOT Mean Gradient 3 mmHg LVOT VTI 18 cm LVOT VTI/AV VTI Ratio 0.9 LVOT Stroke Volume 57 ml LVOT CO 5.4 l/min LVOT CI 2.2 l/min/m2 Pulmonic Valve Name Value Normal RVOT Doppler RVOT Peak Gradient 7 mmHg PV Doppler PV Peak Gradient 5 mmHg Mitral Valve Name Value Normal MV Doppler MV Decel [place] 497 cm/s2 MV PHT 38 ms MV Area (PHT) 5.9 cm2 4.0-5.0 MV Diastolic Function
[2020-10-05] MEDS: SODIUM CHLORIDE 0.9% IV 1,000 ML 125 ML IV CONT ×3 (04:43→21:15)
[2020-10-05 05:44] LABS: Basophils Percent Auto 0.4 % (0.2-1.2); Eosinophils Absolute Auto 0.1 K/mm3 (0-0.3); Hematocrit 34.1 % (42.0-52.0); Hemoglobin 11.4 g/dL (14.0-18.0); Immature Granulocyte Absolute 0.31 K/mm3 (0.00-0.031); Immature Granulocyte Percent A 3.2 % (0-0.5); Lymphocytes Absolute Auto 0.53 K/mm3 (0.9-3.2); Lymphocytes Percent Auto 5.4 % (18.3-44.2); Mean Corpuscular HGB Conc 33.4 g/dl (32-36); Mean Corpuscular Hemoglobin 29.8 pg (26-34); Mean Platelet Volume 11.6 fl (7.4-10.4); Monocytes Absolute Auto 0.9 K/mm3 (0.1-0.6); Monocytes Percent Auto 8.7 % (2.6-8.5); Neutrophils Percent Auto 81.3 % (45.5-73.1); Platelet Count Result 215 k/mm3 (150-375); Red Blood Count 3.83 M/mm3 (4.6-6.20); Red Cell Distribution Width 13.8 % (11.5-14.5); White Blood Count 9.8 K/mm3 (4.5-10.0)
[2020-10-05 05:55] LABS: Alanine Aminotransferase 21 U/L (4-50); Albumin Level 2.1 g/dL (3.5-5.1); Alkaline Phosphatase 59 U/L (38-126); Anion Gap 2 mmol/L (8-16); Aspartate Amino Transferase 24 U/L (17-59); Bilirubin,Total 0.8 mg/dL (0.2-1.3); Blood Urea Nitrogen 70 mg/dL (9-20); Calcium 7.6 mg/dL (8.4-10.2); Carbon Dioxide 23 mmol/L (22-30); Chloride 99 mmol/L (98-107); Estimated CRCL calculation 60 ml/min; Estimated Glomerular Filt Rate 45; Glucose 157 mg/dL (75-110); Potassium 4.4 mmol/L (3.4-5.0); Sodium 124 mmol/L (137-145)
[2020-10-05] MEDS: ENOXAPARIN 120 MG/0.8 ML SYRINGE SUB-Q (06:44)
[2020-10-05 08:23] LABS: Glucose Point of Care 142 (65-105)
[2020-10-05] MEDS: ONDANSETRON INJ 4 MG/2 ML VIAL IV PUSH ×3 (08:56→20:00)
[2020-10-05 09:19] LABS: Thyroid Stimulating Hormone Reflex < 0.015 uIU/mL (0.465-4.68)
[2020-10-05] MEDS: ATORVASTATIN 20 MG TABLET PO (09:50)
[2020-10-05] MEDS: KETOROLAC 0.5% OP SOLN 5 ML BOTTLE 1 DROP LEFT EYE ×2 (09:50→17:47)
[2020-10-05 09:51] LABS: Free T4 Free Thyroxine Reflex 2.47 ng/dL (0.78-2.19)
[2020-10-05 11:52] LABS: Glucose Point of Care 195 (65-105)
[2020-10-05 14:15] LABS: Sodium 124 mmol/L (137-145)
--- NOTE | 2020-10-05 14:40 | PM.IMPN ---
Progress Note: A&P Assessment and Plan (1) Pulmonary emboli: Qualifiers: Acute cor pulmonale presence: unspecified Chronicity: acute Pulmonary embolism type: unspecified Qualified Code(s): I26.99 - Other pulmonary embolism without acute cor pulmonale Code(s): I26.99 - Other pulmonary embolism without acute cor pulmonale Status: Acute Assessment and Plan: Acute. Likely provoked by COVID-19 infection. Venous doppler US shows acute DVT of the right peroneal vein. Echocardiogram shows no evidence of right heart strain. He is on room air and feels better overall. Eliquis is covered - discontinue lovenox and resume eliquis for next scheduled dose tonight Continue to monitor (2) Acute renal failure: Qualifiers: Acute renal failure type: unspecified Qualified Code(s): N17.9 - Acute kidney failure, unspecified Code(s): N17.9 - Acute kidney failure, unspecified Status: Acute Assessment and Plan: Cr 1.6 at admission. Baseline appears to be 0.9. Likely pre-renal as the pt reports poor PO intake since his COVID infection. Check renal US Continue IV fluids Avoid nephrotoxins and renally dose medications - benazepril is on hold (3) Acute dehydration: Code(s): E86.0 - Dehydration Status: Acute Assessment and Plan: He reports very poor PO intake recently due to COVID-19 infection. His appetite has been poor with loss of smell/taste as well. Continue IV fluids (4) Hyponatremia: Code(s): E87.1 - Hypo-osmolality and hyponatremia Status: Acute Assessment and Plan: Sodium is low at 124 on admission. Sodium 06/02/20 was 137. Likely pre-renal given poor PO intake with recent COVID infection and HCTZ. He is asymptomatic. Hold HCTZ Check serum and urine osmolality, urine creatinine, and urine sodium Continue to monitor Continue IV fluids (5) Normocytic anemia: Code(s): D64.9 - Anemia, unspecified Status: Acute Assessment and Plan: Normocytic. Hb 13.6 and Hct 41.5 at admission. He has no evidence of acute blood loss. Will check iron studies, vitamin B12 and folate. Recommend outpatient follow-up Monitor with CBC daily (6) Lesion of adrenal gland: Code(s): E27.9 - Disorder of adrenal gland, unspecified Status: Acute Assessment and Plan: Chest CTA shows bilateral adrenal gland lesions, 2.5cm on the left and 2.1cm on right. Both do not meet criteria for adenoma. He will need MRI abdomen for further evaluation. I discussed this with the patient and he verbalized understanding. Plan for outpatient follow-up with MRI per his PCP (7) Cholelithiasis: Code(s): K80.20 - Calculus of gallbladder without cholecystitis without obstruction Status: Acute Assessment and Plan: Noted on chest CTA. He is asymptomatic from this standpoint. Discussed reasons he may consider cholecystectomy in the futuer should symptoms develop (8) Leukocytosis: Qualifiers: Leukocytosis type: unspecified Qualified Code(s): D72.829 - Elevated white blood cell count, unspecified Code(s): D72.829 - Elevated white blood cell count, unspecified Status: Resolved Assessment and Plan: Resolved. Likely reactive secondary to acute PE. Continue to monitor (9) Abdominal lipoma: Code(s): D17.1 - Benign lipomatous neoplasm of skin and subcutaneous tissue of trunk Status: Acute Assessment and Plan: Chest/abd/pelvis CTA shows large intra-abdominal lipomas displacing kidneys. Largest is [id number] cm. Will ask general surgery to see him (10) Type 2 diabetes mellitus: Code(s): E11.9 - Type 2 diabetes mellitus without complications Status: Chronic Assessment and Plan: Hemoglobin A1c is 5.9% 08/2020. Blood sugars are reasonable. Most recent blood sugar is 195. Continue [facility] glucose monitor
[2020-10-05 17:13] LABS: Glucose Point of Care 197 (65-105)
--- NOTE | 2020-10-05 17:45 | PC.NURSE ---
Malina FRANCO notified of no urine output on my shift and bladder scan showing 28 ml of urine. no new orders will check kindney function in am per Malina.
[2020-10-05] MEDS: polyethylene glycoL 3350 17 GM POWD.PACK PO (17:47)
[2020-10-05] MEDS: APIXABAN 5 MG TABLET 10 MG PO (17:48)
[2020-10-05] MEDS: DOCUSATE SODIUM 100 MG CAPSULE PO (20:00)
[2020-10-05 21:48] LABS: Glucose Point of Care 197 (65-105)
[2020-10-06] VITALS (9 sets, daily range): BP systolic 123–140; BP diastolic 69–71; PULSE 85–96; RESP 18–20; TEMP 36–36.1; O2SAT 96–98
[2020-10-06] MEDS: ONDANSETRON INJ 4 MG/2 ML VIAL IV PUSH ×2 (00:52→05:06)
[2020-10-06] MEDS: SODIUM CHLORIDE 0.9% IV 1,000 ML 125 ML IV CONT ×3 (05:10→22:49)
[2020-10-06 05:54] LABS: Basophils Percent Auto 0.4 % (0.2-1.2); Eosinophils Absolute Auto 0.1 K/mm3 (0-0.3); Eosinophils Percent Auto 1.3 % (0-4.4); Hemoglobin 11.3 g/dL (14.0-18.0); Immature Granulocyte Absolute 0.27 K/mm3 (0.00-0.031); Immature Granulocyte Percent A 2.5 % (0-0.5); Lymphocytes Absolute Auto 0.47 K/mm3 (0.9-3.2); Lymphocytes Percent Auto 4.4 % (18.3-44.2); Mean Corpuscular HGB Conc 32.3 g/dl (32-36); Mean Corpuscular Hemoglobin 28.7 pg (26-34); Mean Corpuscular Volume 88.8 fl (80-100); Mean Platelet Volume 11.8 fl (7.4-10.4); Monocytes Absolute Auto 0.8 K/mm3 (0.1-0.6); Monocytes Percent Auto 7.6 % (2.6-8.5); Neutrophils Absolute Auto 8.9 K/mm3 (1.3-6.7); Neutrophils Percent Auto 83.8 % (45.5-73.1); Platelet Count Result 256 k/mm3 (150-375); Red Blood Count 3.94 M/mm3 (4.6-6.20); Red Cell Distribution Width 13.7 % (11.5-14.5); White Blood Count 10.7 K/mm3 (4.5-10.0)
[2020-10-06 06:43] LABS: Iron 23 ug/dL (49-181)
[2020-10-06 06:52] LABS: Percent Iron Saturation 14 % (20-50)
[2020-10-06 07:13] LABS: Anion Gap 5 mmol/L (8-16); Blood Urea Nitrogen 69 mg/dL (9-20); Calcium 7.9 mg/dL (8.4-10.2); Carbon Dioxide 23 mmol/L (22-30); Chloride 99 mmol/L (98-107); Estimated CRCL calculation 54 ml/min; Estimated Glomerular Filt Rate 39; Glucose 123 mg/dL (75-110); Magnesium 2.4 mg/dL (1.6-2.3); Potassium 4.5 mmol/L (3.4-5.0); Sodium 127 mmol/L (137-145)
[2020-10-06] MEDS: DOCUSATE SODIUM 100 MG CAPSULE PO ×2 (08:15→20:00)
[2020-10-06] MEDS: ATORVASTATIN 20 MG TABLET PO (08:15)
[2020-10-06] MEDS: APIXABAN 5 MG TABLET 10 MG PO ×2 (08:15→17:19)
[2020-10-06] MEDS: polyethylene glycoL 3350 17 GM POWD.PACK PO (08:16)
[2020-10-06] MEDS: KETOROLAC 0.5% OP SOLN 5 ML BOTTLE 1 DROP LEFT EYE ×2 (08:17→17:19)
[2020-10-06 08:20] LABS: Glucose Point of Care 134 (65-105)
[2020-10-06 08:25] LABS: Folic Acid 11.4 ng/mL (2.76->20)
--- NOTE | 2020-10-06 09:28 | PM.CNGS ---
Assessment and Plan Assessment and plan (1) Abnormal CT of the abdomen: Code(s): R93.5 - Abnormal findings on diagnostic imaging of other abdominal regions, including retroperitoneum Status: Acute Assessment and Plan: I have reviewed the CT and discussed the findings with the patient. He has very large intra-abdominal masses that have a lipomatous consistency. With the size and location of these, one needs to be suspicious of liposarcoma or other soft tissue malignancy. Further evaluation by a specialist and possible biopsy at a tertiary facility that deals with sarcomas would be advisable. This does not appear to be his primary reason for being admitted, and could be arranged as an outpatient. He is also on anticoagulation currently which would make a biopsy higher risk. I discussed this with the hospitalist. They may arrange for outpatient evaluation at [facility] or other tertiary facility on discharge. (2) Pulmonary emboli: Qualifiers: Acute cor pulmonale presence: unspecified Chronicity: acute Pulmonary embolism type: unspecified Qualified Code(s): I26.99 - Other pulmonary embolism without acute cor pulmonale Code(s): I26.99 - Other pulmonary embolism without acute cor pulmonale Status: Acute (3) Type 2 diabetes mellitus: Code(s): E11.9 - Type 2 diabetes mellitus without complications Status: Chronic (4) Acute renal failure: Qualifiers: Acute renal failure type: unspecified Qualified Code(s): N17.9 - Acute kidney failure, unspecified Code(s): N17.9 - Acute kidney failure, unspecified Status: Acute History of Present Illness Consult details Consult date: 10/06/20 Requesting physician: Tram De Luna PA-C Narrative: This is a 55-year-old man who I am asked to see for an abnormality seen on recent imaging. He presented to the ER 3 days ago with nausea vomiting and severe fatigue and weakness. He was recently diagnosed with COVID on 09/12/2020. After recovering from this, he try going back to work but then was too fatigued to tolerate work. He states that he has not really had much appetite and food that he has tried eating has not tasted good. This has only been since he was diagnosed with COVID. Prior to that, he did not recall any certain foods that were causing him problems other than lactose. He also states that he has not been moving his bowels much and he is not able to urinate very well currently. In the emergency department he was diagnosed with bilateral PEs and was admitted to the hospital. A CT of the chest abdomen and pelvis also showed very large intra-abdominal masses consistent with lipoma was. These appeared to be predominantly retroperitoneal but also extending into the pelvis and right upper quadrant. He has not noticed any significant change in his abdominal girth recently and states that his belly has been about the size for years. He also states that he has had prior imaging that has never made mention of intra-abdominal lipomas in the past. Review of Systems Review of Systems: All systems reviewed & are unremarkable except as noted in HPI and below PMFSH Past Medical History Medical History (Updated 10/06/20 @ 09:35 by Shad Kerr DO) Cholelithiasis Essential hypertension Leg cramp Lesion of adrenal gland Chest CTA 10/04/20 shows bilateral adrenal gland lesions, 2.5cm on the left and 2.1cm on right. Mixed hyperlipidemia Retinopathy Uncontrolled type 2 diabetes mellitus without complication, with long-term current use of insulin Surgical History Surgical History (Updated 10/06/20 @ 09:32 by Shad Kerr DO) History of inguinal hernia repair History of prostatectomy Family History Family History Father Family history of cardiovascular disease Family history of malignant neoplasm of kidney Diabetes mellitus Hypertension Hypercholesterol
[2020-10-06 09:45] LABS: Sodium Urine Random < 5 meq/L
[2020-10-06 10:33] LABS: Creatinine Urine 167.6 mg/dL
--- NOTE | 2020-10-06 10:58 | PM.IMPN ---
Progress Note: A&P Assessment and Plan (1) Pulmonary emboli: Qualifiers: Acute cor pulmonale presence: unspecified Chronicity: acute Pulmonary embolism type: unspecified Qualified Code(s): I26.99 - Other pulmonary embolism without acute cor pulmonale Code(s): I26.99 - Other pulmonary embolism without acute cor pulmonale Status: Acute Assessment and Plan: Acute. Likely provoked by COVID-19 infection. Venous doppler US shows acute DVT of the right peroneal vein. Echocardiogram shows no evidence of right heart strain. He is on room air and feels better overall. Continue Eliquis at 10 mg bid for 7 days (started 10/05 in the evening). Lovenox discontinued 10/05. Continue to monitor (2) Acute renal failure: Qualifiers: Acute renal failure type: unspecified Qualified Code(s): N17.9 - Acute kidney failure, unspecified Code(s): N17.9 - Acute kidney failure, unspecified Status: Acute Assessment and Plan: Cr 1.6 at admission. Baseline appears to be 0.9. Likely pre-renal as the pt reports poor PO intake since his COVID infection. Renal US unremarkable with no stones, masses, or hydronephrosis. He had poor urine output yesterday. Slight bump in creatinine today. Continue IV fluids. Monitor volume status closely. Avoid nephrotoxins and renally dose medications - benazepril is on hold (3) Acute dehydration: Code(s): E86.0 - Dehydration Status: Acute Assessment and Plan: He reports very poor PO intake recently due to COVID-19 infection. His appetite has been poor with loss of smell/taste as well. Continue IV fluids as above (4) Hyponatremia: Code(s): E87.1 - Hypo-osmolality and hyponatremia Status: Acute Assessment and Plan: Sodium was low at 124 on admission. Baseline appears to be around 134. Likely pre-renal given poor PO intake with recent COVID infection and HCTZ. He is asymptomatic. Improved to 127 today. Hold HCTZ Continue to monitor sodium closely Continue IV fluids (5) Normocytic anemia: Code(s): D64.9 - Anemia, unspecified Status: Acute Assessment and Plan: Normocytic. Hb 13.6 and Hct 41.5 at admission. He has no evidence of acute blood loss and vital signs are stable. Iron studies appear to be consistent with chronic disease. B12 and folate wnl. Monitor with CBC daily (6) Lesion of adrenal gland: Code(s): E27.9 - Disorder of adrenal gland, unspecified Status: Acute Assessment and Plan: Chest CTA shows bilateral adrenal gland lesions, 2.5cm on the left and 2.1cm on right. Both do not meet criteria for adenoma. He will need MRI abdomen for further evaluation. I discussed this with the patient and he verbalized understanding. Plan for outpatient follow-up with MRI per his PCP (7) Cholelithiasis: Code(s): K80.20 - Calculus of gallbladder without cholecystitis without obstruction Status: Acute Assessment and Plan: Noted on chest CTA. He is asymptomatic from this standpoint. Discussed reasons he may consider cholecystectomy in the future should symptoms develop (8) Leukocytosis: Qualifiers: Leukocytosis type: unspecified Qualified Code(s): D72.829 - Elevated white blood cell count, unspecified Code(s): D72.829 - Elevated white blood cell count, unspecified Status: Resolved Assessment and Plan: Resolved. Likely reactive secondary to acute PE. Continue to monitor (9) Abdominal lipoma: Code(s): D17.1 - Benign lipomatous neoplasm of skin and subcutaneous tissue of trunk Status: Acute Assessment and Plan: Chest/abd/pelvis CTA shows large intra-abdominal lipomas displacing kidneys. Largest is [id number] cm. General surgery consulted and evaluated patient. Discussed case with Dr. Kerr who recommends referral to tertiary care center for biopsy to rule out liposarcoma or
[2020-10-06] MEDS: MAGNESIUM HYDROXIDE SUSP 30 ML UDC PO (11:30)
[2020-10-06 11:58] LABS: Glucose Point of Care 167 (65-105)
[2020-10-06] MEDS: SIMETHICONE 80 MG TAB.CHEW PO ×3 (12:15→20:00)
[2020-10-06] MEDS: METOCLOPRAMIDE HCL 10 MG/10 ML SOLN UDC PO ×2 (16:50→20:01)
[2020-10-06 17:04] LABS: Glucose Point of Care 147 (65-105)
[2020-10-06] MEDS: FAMOTIDINE 20 MG/2 ML VIAL IV PUSH (20:00)
[2020-10-06 21:02] LABS: Glucose Point of Care 134 (65-105)
[2020-10-07] VITALS (10 sets, daily range): BP systolic 130–141; BP diastolic 60–72; PULSE 90–100; RESP 18–20; TEMP 36.2–36.9; O2SAT 95–99
[2020-10-07] MEDS: APIXABAN 5 MG TABLET 10 MG PO ×2 (06:12→17:41)
[2020-10-07] MEDS: METOCLOPRAMIDE HCL 10 MG/10 ML SOLN UDC PO ×4 (06:14→20:27)
[2020-10-07 06:16] LABS: Basophils Absolute Auto 0.1 K/mm3 (0.0-0.1); Basophils Percent Auto 0.4 % (0.2-1.2); Eosinophils Absolute Auto 0.2 K/mm3 (0-0.3); Eosinophils Percent Auto 1.4 % (0-4.4); Hematocrit 36.2 % (42.0-52.0); Hemoglobin 11.7 g/dL (14.0-18.0); Immature Granulocyte Absolute 0.51 K/mm3 (0.00-0.031); Immature Granulocyte Percent A 4.5 % (0-0.5); Lymphocytes Absolute Auto 0.44 K/mm3 (0.9-3.2); Lymphocytes Percent Auto 3.9 % (18.3-44.2); Mean Corpuscular HGB Conc 32.3 g/dl (32-36); Mean Corpuscular Hemoglobin 29.1 pg (26-34); Mean Platelet Volume 11.1 fl (7.4-10.4); Monocytes Absolute Auto 0.9 K/mm3 (0.1-0.6); Monocytes Percent Auto 7.7 % (2.6-8.5); Neutrophils Absolute Auto 9.3 K/mm3 (1.3-6.7); Neutrophils Percent Auto 82.1 % (45.5-73.1); Platelet Count Result 267 k/mm3 (150-375); Red Blood Count 4.02 M/mm3 (4.6-6.20); Red Cell Distribution Width 13.9 % (11.5-14.5); White Blood Count 11.3 K/mm3 (4.5-10.0)
[2020-10-07 06:57] LABS: Anion Gap 6 mmol/L (8-16); Blood Urea Nitrogen 62 mg/dL (9-20); Calcium 7.8 mg/dL (8.4-10.2); Carbon Dioxide 17 mmol/L (22-30); Chloride 103 mmol/L (98-107); Estimated CRCL calculation 68 ml/min; Estimated Glomerular Filt Rate 53; Glucose 117 mg/dL (75-110); Potassium 4.8 mmol/L (3.4-5.0); Sodium 126 mmol/L (137-145)
[2020-10-07] MEDS: SODIUM CHLORIDE 0.9% IV 1,000 ML 125 ML IV CONT ×2 (07:16→16:11)
[2020-10-07] MEDS: ATORVASTATIN 20 MG TABLET PO (08:14)
[2020-10-07] MEDS: SIMETHICONE 80 MG TAB.CHEW PO ×4 (08:14→20:27)
[2020-10-07] MEDS: KETOROLAC 0.5% OP SOLN 5 ML BOTTLE 1 DROP LEFT EYE ×2 (08:14→17:41)
[2020-10-07] MEDS: DOCUSATE SODIUM 100 MG CAPSULE PO (08:14)
[2020-10-07] MEDS: FAMOTIDINE 20 MG/2 ML VIAL IV PUSH ×2 (08:14→20:27)
[2020-10-07 08:52] LABS: Glucose Point of Care 138 (65-105)
--- NOTE | 2020-10-07 10:29 | PM.IMPN ---
Progress Note: A&P Assessment and Plan (1) Pulmonary emboli: Qualifiers: Acute cor pulmonale presence: unspecified Chronicity: acute Pulmonary embolism type: unspecified Qualified Code(s): I26.99 - Other pulmonary embolism without acute cor pulmonale Code(s): I26.99 - Other pulmonary embolism without acute cor pulmonale Status: Acute Assessment and Plan: Acute. Likely provoked by COVID-19 infection. Venous doppler US shows acute DVT of the right peroneal vein. Echocardiogram shows no evidence of right heart strain. He is on room air and feels better overall. Continue Eliquis at 10 mg bid for 7 days (started 10/05 in the evening). Lovenox discontinued 10/05. Continue to monitor (2) Acute renal failure: Qualifiers: Acute renal failure type: unspecified Qualified Code(s): N17.9 - Acute kidney failure, unspecified Code(s): N17.9 - Acute kidney failure, unspecified Status: Acute Assessment and Plan: Cr 1.6 at admission. Baseline appears to be 0.9. Likely pre-renal as the pt reports poor PO intake since his COVID infection. Renal US unremarkable with no stones, masses, or hydronephrosis. He had poor urine output on 10/06 but UOP is improving. Improvement in Cr today. Continue IV fluids. Monitor volume status closely. Avoid nephrotoxins and renally dose medications - benazepril is on hold (3) Acute dehydration: Code(s): E86.0 - Dehydration Status: Acute Assessment and Plan: He reports very poor PO intake recently due to COVID-19 infection. His appetite has been poor with loss of smell/taste as well. Continue IV fluids as above (4) Hyponatremia: Code(s): E87.1 - Hypo-osmolality and hyponatremia Status: Acute Assessment and Plan: Sodium was low at 124 on admission. Baseline appears to be around 134. Likely pre-renal given poor PO intake with recent COVID infection and HCTZ. FENa suggests pre-renal etiology. He is asymptomatic. Improved to 126 today. Hold HCTZ Continue to monitor sodium closely Continue IV fluids (5) Normocytic anemia: Code(s): D64.9 - Anemia, unspecified Status: Chronic Assessment and Plan: Normocytic. Hb 13.6 and Hct 41.5 at admission. He has no evidence of acute blood loss and vital signs are stable. Iron studies appear to be consistent with chronic disease. B12 and folate wnl. Monitor with CBC daily (6) Lesion of adrenal gland: Code(s): E27.9 - Disorder of adrenal gland, unspecified Status: Acute Assessment and Plan: Chest CTA shows bilateral adrenal gland lesions, 2.5cm on the left and 2.1cm on right. Both do not meet criteria for adenoma. He will need MRI abdomen for further evaluation. I discussed this with the patient and he verbalized understanding. Plan for outpatient follow-up with MRI per his PCP (7) Leukocytosis: Qualifiers: Leukocytosis type: unspecified Qualified Code(s): D72.829 - Elevated white blood cell count, unspecified Code(s): D72.829 - Elevated white blood cell count, unspecified Status: Acute Assessment and Plan: Minimally elevated. Likely reactive secondary to acute PE. Continue to monitor (8) Abdominal lipoma: Code(s): D17.1 - Benign lipomatous neoplasm of skin and subcutaneous tissue of trunk Status: Acute Assessment and Plan: Chest/abd/pelvis CTA shows large intra-abdominal lipomas displacing kidneys. Largest is [id number] cm. General surgery consulted and evaluated patient. Discussed case with Dr. Kerr who recommends referral to tertiary care center for biopsy to rule out liposarcoma or other soft tissue malignancy as an outpatient. Placed call to [place] surgery department and records have been faxed. Patient will be contacted regarding appointment. (9) Abnormal TSH: Code(s): R79.89 - Other specified abnormal findings of blood chemistry
[2020-10-07 11:53] LABS: Glucose Point of Care 181 (65-105)
[2020-10-07 16:24] LABS: Glucose Point of Care 149 (65-105)
[2020-10-07 20:45] LABS: Glucose Point of Care 149 (65-105)
[2020-10-08] VITALS (9 sets, daily range): BP systolic 119–144; BP diastolic 65–75; PULSE 89–102; RESP 18–19; TEMP 35.7–36.6; O2SAT 96–100
[2020-10-08] MEDS: SODIUM CHLORIDE 0.9% IV 1,000 ML 125 ML IV CONT ×2 (00:18→08:22)
[2020-10-08] MEDS: ONDANSETRON INJ 4 MG/2 ML VIAL IV PUSH (01:17)
[2020-10-08] MEDS: APIXABAN 5 MG TABLET 10 MG PO ×2 (05:12→17:00)
[2020-10-08] MEDS: METOCLOPRAMIDE HCL 10 MG/10 ML SOLN UDC PO ×4 (05:13→20:39)
[2020-10-08 07:29] LABS: Glucose Point of Care 152 (65-105)
[2020-10-08] MEDS: DOCUSATE SODIUM 100 MG CAPSULE PO ×2 (08:18→20:39)
[2020-10-08] MEDS: SIMETHICONE 80 MG TAB.CHEW PO ×4 (08:18→20:39)
[2020-10-08] MEDS: KETOROLAC 0.5% OP SOLN 5 ML BOTTLE 1 DROP LEFT EYE ×2 (08:18→16:59)
[2020-10-08] MEDS: ATORVASTATIN 20 MG TABLET PO (08:18)
[2020-10-08] MEDS: FAMOTIDINE 20 MG/2 ML VIAL IV PUSH ×2 (08:18→20:39)
[2020-10-08 11:26] LABS: Hematocrit 34.3 % (42.0-52.0); Hemoglobin 11.3 g/dL (14.0-18.0); Mean Corpuscular HGB Conc 32.9 g/dl (32-36); Mean Corpuscular Hemoglobin 29.4 pg (26-34); Mean Corpuscular Volume 89.1 fl (80-100); Mean Platelet Volume 10.7 fl (7.4-10.4); Platelet Count Result 256 k/mm3 (150-375); Red Blood Count 3.85 M/mm3 (4.6-6.20); Red Cell Distribution Width 14.1 % (11.5-14.5); White Blood Count 12.4 K/mm3 (4.5-10.0)
[2020-10-08 11:32] LABS: Glucose Point of Care 185 (65-105)
[2020-10-08 11:43] LABS: Anion Gap 3 mmol/L (8-16); Blood Urea Nitrogen 41 mg/dL (9-20); Calcium 7.2 mg/dL (8.4-10.2); Carbon Dioxide 17 mmol/L (22-30); Chloride 105 mmol/L (98-107); Estimated CRCL calculation 86 ml/min; Estimated Glomerular Filt Rate > 60; Glucose 192 mg/dL (75-110); Potassium 4.4 mmol/L (3.4-5.0); Sodium 125 mmol/L (137-145)
[2020-10-08 13:31] LABS: Add Urine Microscopic? YES; Appearance Urine Clear (Clear); Bacteria Urine Trace /hpf; Bilirubin Urine Negative (Negative); Blood Urine Negative (Negative); Color Urine Yellow (Yellow); Glucose Urine UA Negative (Negative); Ketones Urine Trace mg/dL (Negative); Leukocyte Esterase Ur Negative LEU/UL (Negative); Nitrate Urine Negative (Negative); Protein Urine Negative (Negative); RBC Urine 0-2 /hpf (0-2); Specific Grav Ur 1.018 (1.001-1.035); Squamous Epithelial Cell Urine Rare /hpf (Few); WBC Urine 0-3 /hpf
--- NOTE | 2020-10-08 15:24 | PM.IMPN ---
Progress Note: A&P Assessment and Plan (1) Pulmonary emboli: Qualifiers: Acute cor pulmonale presence: unspecified Chronicity: acute Pulmonary embolism type: unspecified Qualified Code(s): I26.99 - Other pulmonary embolism without acute cor pulmonale Code(s): I26.99 - Other pulmonary embolism without acute cor pulmonale Status: Acute Assessment and Plan: Acute. Likely provoked by COVID-19 infection. Venous doppler US shows acute DVT of the right peroneal vein. Echocardiogram shows no evidence of right heart strain. He is on room air and feels better overall. Continue Eliquis at 10 mg bid for 7 days (started 10/05 in the evening). Lovenox discontinued 10/05. Continue to monitor (2) Acute renal failure: Qualifiers: Acute renal failure type: unspecified Qualified Code(s): N17.9 - Acute kidney failure, unspecified Code(s): N17.9 - Acute kidney failure, unspecified Status: Acute Assessment and Plan: Cr 1.6 at admission. Baseline appears to be 0.9. Likely pre-renal as the pt reports poor PO intake since his COVID infection. Renal US unremarkable with no stones, masses, or hydronephrosis. He had poor urine output on 10/06 but UOP is improving. Creatinine is 1.1 today. Monitor renal function closely. IV fluids discontinued. Avoid nephrotoxins and renally dose medications - benazepril is on hold (3) Acute dehydration: Code(s): E86.0 - Dehydration Status: Acute Assessment and Plan: He reports very poor PO intake recently due to COVID-19 infection. His appetite has been poor with loss of smell/taste as well. He has been adequately rehydrated with IV fluids. Discontinue IV fluids (4) Hyponatremia: Code(s): E87.1 - Hypo-osmolality and hyponatremia Status: Acute Assessment and Plan: Sodium was low at 124 on admission. Baseline appears to be around 134. Likely pre-renal given poor PO intake with recent COVID infection and HCTZ. He is asymptomatic. Sodium 125 today Discontinue IV fluids; patient may now be fluid overloaded and he has a positive fluid balance. Repeat urine sodium and urine creatinine as patient has now been off diuretics for several days, this will likely be more accurate. Fluid restriction of 1500 ml. Hold HCTZ Continue to monitor sodium closely (5) Normocytic anemia: Code(s): D64.9 - Anemia, unspecified Status: Chronic Assessment and Plan: Normocytic. Hb 13.6 and Hct 41.5 at admission. He has no evidence of acute blood loss and vital signs are stable. Iron studies appear to be consistent with chronic disease. B12 and folate wnl. H&H stable. Monitor with CBC daily (6) Lesion of adrenal gland: Code(s): E27.9 - Disorder of adrenal gland, unspecified Status: Acute Assessment and Plan: Chest CTA shows bilateral adrenal gland lesions, 2.5cm on the left and 2.1cm on right. Both do not meet criteria for adenoma. He will need MRI abdomen for further evaluation. I discussed this with the patient and he verbalized understanding. Plan for outpatient follow-up with MRI per his PCP (7) Leukocytosis: Qualifiers: Leukocytosis type: unspecified Qualified Code(s): D72.829 - Elevated white blood cell count, unspecified Code(s): D72.829 - Elevated white blood cell count, unspecified Status: Acute Assessment and Plan: Elevated upon admission, felt to initially be reactive secondary to acute PE. WBC count normalized and now is trending upward again. No evidence or history to suggest underlying infection. Remains afebrile. UA not suspicious for UTI. He is not receiving steroids. Continue to monitor CBC daily and monitor patient clinically. (8) Abdominal lipoma: Code(s): D17.1 - Benign lipomatous neoplasm of skin and subcutaneous tissue of trunk Status: Acute Assessment and Plan: Chest/abd/pelvis CTA shows
[2020-10-08 16:51] LABS: Creatinine Urine 134.2 mg/dL
[2020-10-08 16:53] LABS: Sodium Urine Random < 5 meq/L
[2020-10-08 17:06] LABS: Glucose Point of Care 179 (65-105)
[2020-10-08 20:19] LABS: Glucose Point of Care 160 (65-105)
[2020-10-09 02:12] LABS: Osmolality, Urine 484 mOsm/kg (50-1200)
[2020-10-09 06:00] VITALS: BP 121/73; PULSE 102; RESP 20; TEMP 36.4; O2SAT 97
[2020-10-09 06:10] LABS: Hematocrit 37.6 % (42.0-52.0); Hemoglobin 12.2 g/dL (14.0-18.0); Mean Corpuscular HGB Conc 32.4 g/dl (32-36); Mean Corpuscular Hemoglobin 28.9 pg (26-34); Mean Corpuscular Volume 89.1 fl (80-100); Mean Platelet Volume 11.2 fl (7.4-10.4); Platelet Count Result 321 k/mm3 (150-375); Red Blood Count 4.22 M/mm3 (4.6-6.20); White Blood Count 15.1 K/mm3 (4.5-10.0)
[2020-10-09] MEDS: APIXABAN 5 MG TABLET 10 MG PO ×2 (06:14→17:05)
[2020-10-09] MEDS: METOCLOPRAMIDE HCL 10 MG/10 ML SOLN UDC PO ×4 (06:15→21:45)
[2020-10-09 06:20] LABS: Anion Gap 4 mmol/L (8-16); Blood Urea Nitrogen 37 mg/dL (9-20); Calcium 7.6 mg/dL (8.4-10.2); Carbon Dioxide 20 mmol/L (22-30); Chloride 102 mmol/L (98-107); Estimated CRCL calculation 79 ml/min; Estimated Glomerular Filt Rate > 60; Glucose 172 mg/dL (75-110); Potassium 4.7 mmol/L (3.4-5.0); Sodium 126 mmol/L (137-145)
[2020-10-09 07:13] LABS: Thyroid Stimulating Hormone Reflex 0.172 uIU/mL (0.465-4.68)
[2020-10-09 07:45] LABS: Glucose Point of Care 169 (65-105)
[2020-10-09 08:34] VITALS: O2SAT 96
[2020-10-09] MEDS: DOCUSATE SODIUM 100 MG CAPSULE PO ×2 (08:42→21:46)
[2020-10-09] MEDS: ALBUMIN HUMAN 25% 25 GM/100 ML 100 ML IVPB ×2 (08:42→16:59)
[2020-10-09] MEDS: FAMOTIDINE 20 MG/2 ML VIAL IV PUSH ×2 (08:42→21:46)
[2020-10-09] MEDS: KETOROLAC 0.5% OP SOLN 5 ML BOTTLE 1 DROP LEFT EYE ×2 (08:43→16:48)
[2020-10-09 08:44] VITALS: RESP 20; O2SAT 95
[2020-10-09] MEDS: ATORVASTATIN 20 MG TABLET PO (08:44)
[2020-10-09] MEDS: SIMETHICONE 80 MG TAB.CHEW PO ×2 (08:45→12:45)
[2020-10-09 09:44] LABS: Free T4 Free Thyroxine Reflex 1.45 ng/dL (0.78-2.19)
[2020-10-09 10:06] LABS: Alanine Aminotransferase 17 U/L (4-50); Albumin Level 2.2 g/dL (3.5-5.1); Alkaline Phosphatase 71 U/L (38-126); Anion Gap 0 mmol/L (8-16); Aspartate Amino Transferase 27 U/L (17-59); Bilirubin,Total 0.7 mg/dL (0.2-1.3); Blood Urea Nitrogen 38 mg/dL (9-20); Calcium 7.8 mg/dL (8.4-10.2); Carbon Dioxide 23 mmol/L (22-30); Chloride 102 mmol/L (98-107); Estimated CRCL calculation 86 ml/min; Estimated Glomerular Filt Rate > 60; Glucose 183 mg/dL (75-110); Potassium 4.7 mmol/L (3.4-5.0); Sodium 125 mmol/L (137-145)
[2020-10-09 10:36] LABS: Total Triiodothyronine (T3) 0.53 NG/ML (0.97-1.69)
[2020-10-09 11:56] LABS: Triiodothyronine T3 Free 1.6 pg/mL (2.3-4.2)
[2020-10-09 11:56] LABS: Glucose Point of Care 213 (65-105)
[2020-10-09] MEDS: INSULIN ASPART (*BKC) 100 UNITS/ML SUB-Q (12:08)
--- NOTE | 2020-10-09 13:45 | PM.IMPN ---
Progress Note: A&P Assessment and Plan (1) Pulmonary emboli: Qualifiers: Acute cor pulmonale presence: unspecified Chronicity: acute Pulmonary embolism type: unspecified Qualified Code(s): I26.99 - Other pulmonary embolism without acute cor pulmonale Code(s): I26.99 - Other pulmonary embolism without acute cor pulmonale Status: Acute Assessment and Plan: Acute. Likely provoked by COVID-19 infection. Venous doppler US shows acute DVT of the right peroneal vein. Echocardiogram shows no evidence of right heart strain. He is on room air and feels better overall. Continue Eliquis at 10 mg bid for 7 days. Transition to 5 mg bid on 10/11 in the evening. Lovenox discontinued 10/05. Continue to monitor (2) Acute renal failure: Qualifiers: Acute renal failure type: unspecified Qualified Code(s): N17.9 - Acute kidney failure, unspecified Code(s): N17.9 - Acute kidney failure, unspecified Status: Acute Assessment and Plan: Cr 1.6 at admission. Baseline appears to be 0.9. Likely pre-renal as the pt reports poor PO intake since his COVID infection. Renal US unremarkable with no stones, masses, or hydronephrosis. He had poor urine output on 10/06 but UOP is improving. Creatinine is 1.2 today. Monitor renal function closely. IV fluids discontinued. Avoid nephrotoxins and renally dose medications - benazepril is on hold (3) Acute dehydration: Code(s): E86.0 - Dehydration Status: Acute Assessment and Plan: He reports very poor PO intake recently due to COVID-19 infection. His appetite has been poor with loss of smell/taste as well. He has been adequately rehydrated with IV fluids. Patients electrolytes still indicate that he is intravascularly dry and suspect third spacing secondary to hypoalbuminemia. IV fluids discontinued Will give IV albumin today and follow with IV lasix. (4) Hyponatremia: Code(s): E87.1 - Hypo-osmolality and hyponatremia Status: Acute Assessment and Plan: Sodium was low at 124 on admission. Baseline appears to be around 134. He is asymptomatic. Urine sodium is very low and FENa suggests pre-renal etiology. As above, suspect intravascular volume depletion with third spacing secondary to hypoalbuminemia. Sodium 126 today Infuse IV albumin Will administer 40 mg IV lasix HCTZ discontinued Continue to monitor sodium closely (5) Normocytic anemia: Code(s): D64.9 - Anemia, unspecified Status: Chronic Assessment and Plan: Normocytic. Hb 13.6 and Hct 41.5 at admission. He has no evidence of acute blood loss and vital signs are stable. Iron studies appear to be consistent with chronic disease. B12 and folate wnl. H&H stable. Monitor with CBC daily (6) Leukocytosis: Qualifiers: Leukocytosis type: unspecified Qualified Code(s): D72.829 - Elevated white blood cell count, unspecified Code(s): D72.829 - Elevated white blood cell count, unspecified Status: Acute Assessment and Plan: Elevated upon admission, felt to initially be reactive secondary to acute PE. WBC count normalized and now is trending upward again. No evidence or history to suggest underlying infection. Remains afebrile. UA not suspicious for UTI. Repeat CXR 10/09 demonstrates improvement in resolving airspace disease. He was endorsing loose stools but this is improving making c. diff or other GI infection unlikely. He is not receiving steroids. Continue to monitor CBC daily and monitor patient clinically. (7) Hypoalbuminemia: Code(s): E88.09 - Other disorders of plasma-protein metabolism, not elsewhere classified Status: Acute Assessment and Plan: Patient is edematous. Clinically appears to be fluid overloaded, however electrolytes consistent with intravascular volume depletion. He has had poor PO intake for several weeks now since onset of acute infection and
[2020-10-09 14:00] VITALS: BP 142/75; PULSE 100; RESP 18; TEMP 36.4; O2SAT 95
[2020-10-09] MEDS: FUROSEMIDE INJ 40 MG/4 ML VIAL IV PUSH (14:09)
[2020-10-09 16:25] LABS: Glucose Point of Care 178 (65-105)
[2020-10-09 22:00] VITALS: BP 125/89; PULSE 98; RESP 16; TEMP 36.1; O2SAT 100
[2020-10-09 23:15] LABS: Glucose Point of Care 187 (65-105)
[2020-10-10] MEDS: ALBUMIN HUMAN 25% 25 GM/100 ML 100 ML IVPB (01:17)
[2020-10-10 05:43] LABS: Hematocrit 33.5 % (42.0-52.0); Hemoglobin 10.7 g/dL (14.0-18.0); Mean Corpuscular HGB Conc 31.9 g/dl (32-36); Mean Corpuscular Hemoglobin 28.5 pg (26-34); Mean Corpuscular Volume 89.1 fl (80-100); Mean Platelet Volume 11.1 fl (7.4-10.4); Platelet Count Result 303 k/mm3 (150-375); Red Blood Count 3.76 M/mm3 (4.6-6.20); White Blood Count 12.3 K/mm3 (4.5-10.0)
[2020-10-10] MEDS: APIXABAN 5 MG TABLET 10 MG PO ×2 (05:55→17:06)
[2020-10-10] MEDS: METOCLOPRAMIDE HCL 10 MG/10 ML SOLN UDC PO ×3 (05:55→17:05)
[2020-10-10 05:57] VITALS: BP 131/60; PULSE 94; RESP 16; TEMP 36.2; O2SAT 99
[2020-10-10 05:58] LABS: Alanine Aminotransferase 11 U/L (4-50); Albumin Level 2.4 g/dL (3.5-5.1); Alkaline Phosphatase 54 U/L (38-126); Anion Gap 6 mmol/L (8-16); Aspartate Amino Transferase 20 U/L (17-59); Bilirubin,Total 0.6 mg/dL (0.2-1.3); Blood Urea Nitrogen 34 mg/dL (9-20); Calcium 7.6 mg/dL (8.4-10.2); Carbon Dioxide 16 mmol/L (22-30); Chloride 103 mmol/L (98-107); Estimated CRCL calculation 79 ml/min; Estimated Glomerular Filt Rate > 60; Glucose 162 mg/dL (75-110); Magnesium 2.2 mg/dL (1.6-2.3); Sodium 125 mmol/L (137-145)
[2020-10-10 07:45] LABS: Glucose Point of Care 171 (65-105)
[2020-10-10] MEDS: SODIUM CHLORIDE 0.9% IV 1,000 ML 100 ML IV CONT ×2 (09:17→18:48)
[2020-10-10] MEDS: ATORVASTATIN 20 MG TABLET PO (09:19)
[2020-10-10] MEDS: FAMOTIDINE 20 MG/2 ML VIAL IV PUSH (09:20)
[2020-10-10] MEDS: KETOROLAC 0.5% OP SOLN 5 ML BOTTLE 1 DROP LEFT EYE ×2 (09:20→17:05)
[2020-10-10 09:26] VITALS: RESP 16; O2SAT 98
[2020-10-10] MEDS: DOCUSATE SODIUM 100 MG CAPSULE PO (09:26)
[2020-10-10 11:28] LABS: Glucose Point of Care 169 (65-105)
--- NOTE | 2020-10-10 14:15 | PM.IMPN ---
Progress Note: A&P Assessment and Plan (1) Pulmonary emboli: Qualifiers: Acute cor pulmonale presence: unspecified Chronicity: acute Pulmonary embolism type: unspecified Qualified Code(s): I26.99 - Other pulmonary embolism without acute cor pulmonale Code(s): I26.99 - Other pulmonary embolism without acute cor pulmonale Status: Acute Assessment and Plan: Acute. Likely provoked by COVID-19 infection. Venous doppler US shows acute DVT of the right peroneal vein. Echocardiogram shows no evidence of right heart strain. He is on room air and feels better overall. Continue Eliquis at 10 mg bid for 7 days. Transition to 5 mg bid on 10/11 in the evening. Lovenox discontinued 10/05. Continue to monitor (2) Acute renal failure: Qualifiers: Acute renal failure type: unspecified Qualified Code(s): N17.9 - Acute kidney failure, unspecified Code(s): N17.9 - Acute kidney failure, unspecified Status: Acute Assessment and Plan: Cr 1.6 at admission. Baseline appears to be 0.9. Likely pre-renal as the pt reports poor PO intake since his COVID infection. Renal US unremarkable with no stones, masses, or hydronephrosis. He had poor urine output on 10/06 but UOP is improving. Creatinine is 1.2 today. Monitor renal function closely. IV fluids resumed Avoid nephrotoxins and renally dose medications - benazepril is on hold (3) Hyponatremia: Code(s): E87.1 - Hypo-osmolality and hyponatremia Status: Acute Assessment and Plan: Sodium was low at 124 on admission. Baseline appears to be around 134. He is asymptomatic. Urine sodium is very low and FENa suggests pre-renal etiology. As above, suspect intravascular volume depletion with third spacing secondary to hypoalbuminemia. Sodium 125 today Resume IV fluids IV albumin and lasix given 10/09 with no significant improvement HCTZ discontinued Continue to monitor sodium closely (4) Abdominal lipoma: Code(s): D17.1 - Benign lipomatous neoplasm of skin and subcutaneous tissue of trunk Status: Acute Assessment and Plan: Chest/abd/pelvis CTA shows large intra-abdominal lipomas displacing kidneys and bowel. Largest is [id number] cm. This is likely compressing venous return contributing to anasarca. General surgery consulted and evaluated patient. Discussed case with Dr. Kerr who recommends referral to tertiary [facility] for biopsy to rule out liposarcoma or other soft tissue malignancy as an outpatient.Placed call to [place] surgery department and records have been faxed. Patient will be contacted regarding appointment. Given size and issues related to compression from lipoma, discussed with supervising physician regarding transfer to tertiary care center to be evaluated as an inpatient for biopsy or surgical evaluation. I spoke with Wade and am waiting for return call. I spoke with [facility]; surgery service recommends outpatient eval and medicine service cannot accept patient due to surgical needs. (5) Failure to thrive: Status: Acute Assessment and Plan: Suspect severe malnourishment. Patient has poor appetite and significantly decreased PO intake for several weeks now. Initially thought to be secondary to recent illness with COVID as well as loss of taste/smell, but given lack of improvement, it is plausible that patient has poor PO intake secondary to large abdominal lipoma compressing the stomach. He feels very weak. Supervisor [employer] has been consulted. Proper nutrition has been more challenging as patient has lactose allergy and unable to tolerate most dietary supplements. (6) Hypoalbuminemia: Code(s): E88.09 - Other disorders of plasma-protein metabolism, not elsewhere classified Status: Acute Assessment and Plan: Secondary to malnutrition. Nephrotic syndrome less likely as UA has no protein. He received IV albumin infusions 10/09. Dietary supplements.
[2020-10-10 14:20] VITALS: BP 108/71; PULSE 105; RESP 18; TEMP 36.4; O2SAT 95
[2020-10-10 16:44] LABS: Glucose Point of Care 211 (65-105)
[2020-10-10] MEDS: INSULIN ASPART (*BKC) 100 UNITS/ML SUB-Q (17:07)
[2020-10-10] MEDS: ONDANSETRON INJ 4 MG/2 ML VIAL IV PUSH (18:47)
[2020-10-10] MEDS: SIMETHICONE 80 MG TAB.CHEW PO (18:48)
[2020-10-10] MEDS: ACETAMINOPHEN 325 MG TABLET 650 MG PO (18:52)
--- NOTE | 2020-10-11 08:56 | PM.TDS ---
Transfer Discharge Sum: Prov Provider Date of admission: 10/04/20 18:29 Primary care physician: Blade Pantoja MD Admitting clinician: Benja Ward MD Consults: 10/05/20 Consult to Physician Routine Comment: Spoke with C[facility] at [facility] (,[place]) Consulting Provider: Shad Kerr on call/MD group to consult: General surgery Chest/abd/pelvis CTA shows large intra-abdominal lipomas displacing kidneys. Largest is [id number] cm. Reason for consultation: Abdominal lipomas, cholelithiasis Has provider been notified: Yes DS: Admitting Diagnosis Admitting Diagnosis Admitting Diagnosis: Dyspnea DS: Discharge Diagnosis Discharge Diagnosis (1) Pulmonary emboli: Qualifiers: Acute cor pulmonale presence: unspecified Chronicity: acute Pulmonary embolism type: unspecified Qualified Code(s): I26.99 - Other pulmonary embolism without acute cor pulmonale Code(s): I26.99 - Other pulmonary embolism without acute cor pulmonale Status: Acute Assessment and Plan: Acute. Likely provoked by COVID-19 infection. Venous doppler US shows acute DVT of the right peroneal vein. Echocardiogram shows no evidence of right heart strain. He is on room air and feels better overall. Continue Eliquis at 10 mg bid for 7 days. Transition to 5 mg bid on 10/11 in the evening. Lovenox discontinued 10/05. (2) Acute renal failure: Qualifiers: Acute renal failure type: unspecified Qualified Code(s): N17.9 - Acute kidney failure, unspecified Code(s): N17.9 - Acute kidney failure, unspecified Status: Acute Assessment and Plan: Cr 1.6 at admission. Baseline appears to be 0.9. Likely pre-renal as the pt reports poor PO intake since his COVID infection. Renal US unremarkable with no stones, masses, or hydronephrosis. He had poor urine output on 10/06 but UOP is improving. Creatinine improved. Monitor renal function closely. IV fluids resumed Avoid nephrotoxins and renally dose medications - benazepril is on hold (3) Hyponatremia: Code(s): E87.1 - Hypo-osmolality and hyponatremia Status: Acute Assessment and Plan: Sodium was low at 124 on admission. Baseline appears to be around 134. He is asymptomatic. Urine sodium is very low and FENa suggests pre-renal etiology. As above, suspect intravascular volume depletion with third spacing secondary to hypoalbuminemia. Sodium 125 today Resume IV fluids IV albumin and lasix given 10/09 with no significant improvement HCTZ discontinued Continue to monitor sodium closely (4) Abdominal lipoma: Code(s): D17.1 - Benign lipomatous neoplasm of skin and subcutaneous tissue of trunk Status: Acute Assessment and Plan: Chest/abd/pelvis CTA shows large intra-abdominal lipomas displacing kidneys and bowel. Largest is [id number] cm. This is likely compressing venous return contributing to anasarca. General surgery consulted and evaluated patient. Discussed case with Dr. Kerr who recommends referral to tertiary care center for biopsy to rule out liposarcoma or other soft tissue malignancy as an outpatient.Placed call to [place] surgery department and records have been faxed. Patient will be contacted regarding appointment (10/06/20). 10/10/20: Given size and issues related to compression from lipoma, discussed with supervising physician regarding transfer to tertiary care center to be evaluated as an inpatient for biopsy or surgical evaluation. He was accepted to [facility] service under care of Dr. Huang Mcclendon on 10/10/20. (5) Failure to thrive: Status: Acute Assessment and Plan: Suspect secondary to malnourishment. Patient has poor appetite and significantly decreased PO intake for several weeks now. Initially thought to be secondary to recent illness with COVID as well as loss of taste/smell, but given lack of impro
== END 2020-10-10 20:30 | disposition short-term general hospital (02) | DRG 176 ==
LOC: ANHED 18:36 → ANH2MED 10-05 04:34
PROVIDERS: Physician Assistant; Admitting Provider Internal Medicine; Emergency Provider General Practice; PCP Family Medicine; Visit Provider Physician Assistant
DX: I26.99 Other pulmonary embolism without acute cor pulmonale (principal); E87.1 Hypo-osmolality and hyponatremia; N17.9 Acute kidney failure, unspecified; I82.451 Acute embolism and thrombosis of right peroneal vein; B94.8 Sequelae of other specified infectious and parasitic diseases; E86.0 Dehydration; E11.9 Type 2 diabetes mellitus without complications; I10 Essential (primary) hypertension; E78.5 Hyperlipidemia, unspecified; K80.20 Calculus of gallbladder without cholecystitis without obstruction; D64.9 Anemia, unspecified; D17.1 Benign lipomatous neoplasm of skin and subcutaneous tissue of trunk; E27.9 Disorder of adrenal gland, unspecified; R62.7 Adult failure to thrive
CPT/HCPCS: 36415; 36600; 71045; 71046; 71275; 74018; 74177; 76775; 80048; 80053; 81001; 82375; 82533; 82570; 82607; 82728; 82746; 82805; 83050; 83540; 83550; 83605; 83735; 83880; 83930; 83935; 84295; 84300; 84439; 84443; 84480; 84481; 85025; 85027; 85380; 85610; 85730; 87015; 87045; 87046; 87269; 87272; 87324; 87427; 89055; 93005; 93306; 93970; 97110; 97116; 97161; 97165; 97535; 99285; A9270; J1650; J1815; J1940; J2405; J7030; J7120; P9047; Q9967

== ENCOUNTER 2020-10-29 05:29 | Emergency (ER) | payer OTHER, SELFPAY ==
[2020-10-29] VITALS (23 sets, daily range): BP systolic 129–150; BP diastolic 68–102; PULSE 95–104; RESP 15–23; TEMP 36.6; O2SAT 96–100
--- NOTE | 2020-10-29 05:42 | ED.WEAKNESS ---
HPI - Weakness General Chief complaint: Unspecified Stated complaint: feels dehydrated Time Seen by Provider: 10/29/20 05:30 History of Present Illness HPI Narrative: 55 yo male presents to he ED for dehydration. He Related Data Home Medications Medication Instructions Recorded Confirmed Januvia 100 mg PO DAILY 09/20/20 09/20/20 atorvastatin 20 mg PO DAILY 09/20/20 09/20/20 ketorolac 1 drp BID 10/04/20 10/04/20 apixaban 10/29/20 Allergies Allergy/AdvReac Type Severity Reaction Status Date / Time lactose Allergy Intermediate DIARRHEA Verified 10/29/20 06:20 Penicillins Allergy Unknown Rash Verified 10/29/20 06:20 metformin AdvReac Diarrhea Verified 10/29/20 06:20 [facility] Past Medical History Medical History Cholelithiasis Diabetes mellitus Essential hypertension H/O: HTN (hypertension) Hyperlipidemia Leg cramp Lesion of adrenal gland Chest CTA 10/04/20 shows bilateral adrenal gland lesions, 2.5cm on the left and 2.1cm on right. Mixed hyperlipidemia Retinopathy Uncontrolled type 2 diabetes mellitus without complication, with long-term current use of insulin Surgical History Surgical History History of inguinal hernia repair History of prostatectomy Family History Family History Father Family history of cardiovascular disease Family history of malignant neoplasm of kidney Diabetes mellitus Hypertension Hypercholesterolemia Grandparent Family history of cardiovascular disease Mother Hypercholesterolemia Hypertension Father Hypertension Diabetes mellitus High cholesterol Kidney malignancy Legal Guardian No problems noted. Mother High cholesterol Hypertension Social History Social History Smoking status: Never smoker Tobacco type: cigarettes Additional smoking assessment comments: only smoked in high school Alcohol intake: never Substance use: never Substance use type: does not use Gender identity (if verbalized by the patient): Male Spiritual care concerns: No Course Vital Signs Vital signs: Vital Signs Temperature 36.6 C 10/29/20 05:35 Pulse Rate 100 10/29/20 05:35 Respiratory Rate 20 10/29/20 05:35 Blood Pressure 144/72 H 10/29/20 05:35 Pulse Oximetry 97 10/29/20 05:35 Temperature 36.6 C 10/29/20 05:35 Pulse Rate 100 10/29/20 05:35 Respiratory Rate 20 10/29/20 05:35 Blood Pressure 144/72 H 10/29/20 05:35 Pulse Oximetry 97 10/29/20 05:35 MDM - Weakness Lab Data Result diagrams: 10/29/20 06:18 10/29/20 06:17 Labs: Lab Results 10/29/20 10/29/20 10/29/20 Range/Units 06:17 06:18 06:18 WBC Pending RBC Pending Hgb Pending Hct Pending MCV Pending MCH Pending MCHC Pending RDW Pending Plt Count Pending MPV Pending Immature Gran % (Auto) Pending Neut % (Auto) Pending Lymph % (Auto) Pending Major % (Auto) Pending Eos % (Auto) Pending Baso % (Auto) Pending Lymph # (Auto) Pending Major # (Auto) Pending Eos # (Auto) Pending Baso # (Auto) Pending Abs Immat Gran (auto) Pending Absolute Neuts (auto) Pending Absolute Nucleated RBC Pending Nucleated RBC % Pending Sodium 130 L (137-145) mmol/L Potassium 4.8 (3.4-5.0) mmol/L Chloride 101 (98-107) mmol/L Carbon Dioxide 25 (22-30) mmol/L Anion Gap 4 L (8-16) mmol/L BUN 20 D (9-20) mg/dL Creatinine 1.00 (0.7-1.3) mg/dL Estim Creat Clear Calc 101 ml/min Estimated GFR > 60 (59 - ) Glucose 123 H (75-110) mg/dL Calcium 7.8 L (8.4-10.2) mg/dL Total Bilirubin 0.7 (0.2-1.3) mg/dL AST 23 (17-59) U/L ALT 14 (4-50) U/L Alkaline Phosphatase 77 (38-12
--- NOTE | 2020-10-29 05:51 | PC.NURSE ---
Attempts x3 per this RN for IV and lab draw unsuccessful.
[2020-10-29 06:25] LABS: Basophils Percent Auto 0.4 % (0.2-1.2); Eosinophils Absolute Auto 0.1 K/mm3 (0-0.3); Eosinophils Percent Auto 0.8 % (0-4.4); Hematocrit 33.5 % (42.0-52.0); Hemoglobin 10.8 g/dL (14.0-18.0); Immature Granulocyte Absolute 0.19 K/mm3 (0.00-0.031); Lymphocytes Absolute Auto 0.38 K/mm3 (0.9-3.2); Mean Corpuscular HGB Conc 32.2 g/dl (32-36); Mean Corpuscular Volume 89.8 fl (80-100); Mean Platelet Volume 9.9 fl (7.4-10.4); Monocytes Absolute Auto 0.6 K/mm3 (0.1-0.6); Monocytes Percent Auto 6.3 % (2.6-8.5); Neutrophils Absolute Auto 8.1 K/mm3 (1.3-6.7); Neutrophils Percent Auto 86.5 % (45.5-73.1); Platelet Count Result 354 k/mm3 (150-375); Red Blood Count 3.73 M/mm3 (4.6-6.20); Red Cell Distribution Width 15.5 % (11.5-14.5); White Blood Count 9.4 K/mm3 (4.5-10.0)
--- NOTE | 2020-10-29 06:25 | PC.NURSE ---
Pt straight cathed per FARZAD Ray. Note pt has edema to genitals. Pt doesn't recall when they took him off of his water pill, but states it was because of my kidney injury .
[2020-10-29 06:32] LABS: Add Urine Microscopic? YES; Appearance Urine Clear (Clear); Bacteria Urine Trace /hpf; Bilirubin Urine Negative (Negative); Blood Urine Negative (Negative); Color Urine Yellow (Yellow); Glucose Urine UA Negative (Negative); Ketones Urine 1+ mg/dL (Negative); Leukocyte Esterase Ur Negative LEU/UL (Negative); Mucus Urine Rare /lpf; Nitrate Urine Negative (Negative); Protein Urine 1+ mg/dL (Negative); Specific Grav Ur 1.026 (1.001-1.035); Squamous Epithelial Cell Urine Rare /hpf (Few)
[2020-10-29 06:36] LABS: Alanine Aminotransferase 14 U/L (4-50); Albumin Level 2.4 g/dL (3.5-5.1); Alkaline Phosphatase 77 U/L (38-126); Anion Gap 4 mmol/L (8-16); Aspartate Amino Transferase 23 U/L (17-59); Bilirubin,Total 0.7 mg/dL (0.2-1.3); Blood Urea Nitrogen 20 mg/dL (9-20); Calcium 7.8 mg/dL (8.4-10.2); Carbon Dioxide 25 mmol/L (22-30); Chloride 101 mmol/L (98-107); Estimated CRCL calculation 101 ml/min; Estimated Glomerular Filt Rate > 60; Glucose 123 mg/dL (75-110); Lipase 109 U/L (23-300); Potassium 4.8 mmol/L (3.4-5.0); Sodium 130 mmol/L (137-145)
[2020-10-29] MEDS: SODIUM CHLORIDE 0.9% IV 1,000 ML 999 ML IV CONT (06:46)
--- NOTE | 2020-10-29 07:28 | PC.NURSE ---
Bedside report to NIRALI Melara, to continue care.
--- NOTE | 2020-10-29 08:04 | ED.GENADULT ---
HPI - General Adult General Chief complaint: Unspecified Stated complaint: feels dehydrated Time Seen by Provider: 10/29/20 05:30 Source: patient Mode of arrival: EMS Limitations: no limitations History of Present Illness HPI narrative: 55 years old white male came from rehab with chief complaint of feeling dehydrated, with decreased urine output and feeling thirsty. Patient was discharged from [facility] 7 days ago to rehab. Patient is telling me that he have a diagnosis of abdominal mass under investigation, ascites and acute kidney injury at the time of discharge from [facility] 1 week ago. Patient does not know the name of the doctor. Patient also telling me that he had history of deep vein thrombosis and PEs and currently on Eliquis. Patient denies any fever, chills, nausea, vomiting, chest pain, shortness of breath or back pain.. Patient also telling me that [facility] are not planning to do abdominal centesis at this time waiting for certain diagnostic tests.. Patient is telling me that [facility] will call him sometimes in the next few days/weeks for follow-up and possible another biopsy of the abdominal mass. Related Data Home Medications Medication Instructions Recorded Confirmed Januvia 100 mg PO DAILY 09/20/20 09/20/20 atorvastatin 20 mg PO DAILY 09/20/20 09/20/20 ketorolac 1 drp BID 10/04/20 10/04/20 apixaban 10/29/20 Allergies Allergy/AdvReac Type Severity Reaction Status Date / Time lactose Allergy Intermediate DIARRHEA Verified 10/29/20 06:20 Penicillins Allergy Unknown Rash Verified 10/29/20 06:20 metformin AdvReac Diarrhea Verified 10/29/20 06:20 Review of Systems Review of Systems: Narrative: CONSTITUTIONAL: Denies fever, chills, or sweats. EYES: Denies visual changes, redness, or discharge. ENT: Denies rhinorrhea, congestion, sore throat, or otalgia. CARDIOVASCULAR: Denies chest pain, palpitations, or edema. RESPIRATORY: Denies cough or dyspnea. GASTROINTESTINAL: Denies abdominal pain, nausea, vomiting, or diarrhea. GENITOURINARY: Denies dysuria or hematuria. SKIN: Denies rash or itching. MUSCULOSKELETAL: Denies back pain, joint pain, or myalgia. NEUROLOGIC: Denies headache, numbness, or weakness. PSYCHIATRIC: Denies anxiety or depression. [facility] Past Medical History Medical History Cholelithiasis Diabetes mellitus Essential hypertension H/O: HTN (hypertension) Hyperlipidemia Leg cramp Lesion of adrenal gland Chest CTA 10/04/20 shows bilateral adrenal gland lesions, 2.5cm on the left and 2.1cm on right. Mixed hyperlipidemia Retinopathy Uncontrolled type 2 diabetes mellitus without complication, with long-term current use of insulin Surgical History Surgical History History of inguinal hernia repair History of prostatectomy Family History Family History Father Family history of cardiovascular disease Family history of malignant neoplasm of kidney Diabetes mellitus Hypertension Hypercholesterolemia Grandparent Family history of cardiovascular disease Mother Hypercholesterolemia Hypertension Father Hypertension Diabetes mellitus High cholesterol Kidney malignancy Legal Guardian No problems noted. Mother High cholesterol Hypertension Social History Social History Smoking status: Never smoker Tobacco type: cigarettes Additional smoking assessment comments: only smoked in high school Alcohol intake: never Substance use: never Substance use type: does not use Gender identity (if verbalized by the patient): Male Spiritual care concerns: No Exam Narrative: Exam Narrative: General appearance: Well-developed, well-nourished Skin: Normal color, 3+ edema right lower extremity, 1+ edema left lower extremity Head: Normocephalic,
--- NOTE | 2020-10-29 09:00 | PC.NURSE ---
pt has no requests or c/o at this time. watching tv without distress.
--- NOTE | 2020-10-29 09:37 | PC.NURSE ---
[facility] accepted [facility]TA Trip #[id number]
--- NOTE | 2020-10-29 09:47 | PC.NURSE ---
phone report to kareem at [facility] in [place]. pt aware of d/c back to facility and approves. ems to arrive for transport at approx 1045.
--- NOTE | 2020-10-29 11:07 | PCCCNOTE ---
Was informed that pt did not want to return to [facility] that he has only been a resident since Monday. Spoke to pt and he agreed to try to go to [facility]. Contacted Isra at [facility] for bed availablity. Pt then called and states he talked to a friend and has decided to stay at his current nursing facility for rehab.
--- NOTE | 2020-10-29 11:18 | PC.NURSE ---
cleaned up after incont of stool. continues to await transport back to [facility]
--- NOTE | 2020-10-29 11:34 | PC.NURSE ---
ems now to arrive at 1245. pt updated. full liquid tray with no dairy ordered per pt request
== END 2020-10-29 11:48 ==
PROVIDERS: Emergency Medicine; Emergency Provider Emergency Medicine; PCP Family Medicine
DX: E87.1 Hypo-osmolality and hyponatremia (principal); R18.8 Other ascites; I10 Essential (primary) hypertension; E78.2 Mixed hyperlipidemia; E11.319 Type 2 diabetes mellitus with unspecified diabetic retinopathy without macular edema; Z90.79 Acquired absence of other genital organ(s); Z87.891 Personal history of nicotine dependence; Z86.711 Personal history of pulmonary embolism; Z86.718 Personal history of other venous thrombosis and embolism; Z79.01 Long term (current) use of anticoagulants; Z79.84 Long term (current) use of oral hypoglycemic drugs
CPT/HCPCS: 36415; 51701; 80053; 81001; 83690; 85025; 96360; 96361; 99283; J7030

== ENCOUNTER 2020-11-21 08:26 | Inpatient (IN) | payer OTHER, SELFPAY ==
[2020-11-21] VITALS (44 sets, daily range): BP systolic 118–149; BP diastolic 63–101; PULSE 73–112; RESP 14–29; TEMP 36.3–36.6; O2SAT 96–100; BMI 42.5; BMI 43.2
--- NOTE | ~2020-11-21 | US_ITS ---
EXAMINATION:US venous doppler LE BI INDICATION:Lower extremity edema TECHNIQUE: Multiple grayscale, color flow and Doppler images of the right and left lower extremity de ep venous systems were obtained and reviewed. COMPARISON:10/05/2020 FINDINGS: The common femoral, superficial femoral and popliteal veins demonstrate normal respiratory variation, augmentation and compressibility. Color flow is also seen within the posterior tibial, pe roneal, greater saphenous and profunda veins. IMPRESSION: 1: No lower extremity deep venous thrombosis. Reviewed, dictated and finalized at location B. [employer]
--- NOTE | ~2020-11-21 | CT_ITS ---
EXAMINATION: CT abdomen pelvis wo con DATE: 11/26/2020 10:53 INDICATION: Abdominal distention and abdominal mass TECHNIQUE: Computed tomography (CT) of the abdomen and pelvis was performed without intravenous contr ast. The dose-length product (DLP) was 1767.25 mGy-cm. Automated exposure control and iterative recon struction technique were employed. COMPARISON: 10/04/2020 FINDINGS: There are small pleural effusions which result in passive atelectasis in the lung bases. Th e heart size is normal. There is a moderate volume of ascites. Stones are present in the nondistended gallbladder. The liver, spleen, and pancreas are normal. There is a 2.1 cm adenoma of the right adre nal gland. A stable 2.6 cm indeterminate mass is present in the left adrenal gland. There is massive enlargement of the fat surrounding the kidneys. On the right, this distorts the contour of the kidney and exerts mass effect on the inferior vena cava. No pathologically enlarged abdominal or pelvic lym ph nodes are identified. There is no free intraperitoneal gas or evidence of bowel obstruction. Diffu se anasarca is noted. There is calcified atherosclerosis. Mild lumbar spondylosis is noted. IMPRESSION: 1. Moderate volume of ascites. 2. Small pleural effusions with passive atelectasis in the lung bases. 3. Massive expansion of the fat surrounding the kidneys which results in distortion of the contour of the right kidney and mass effect on the inferior vena cava. Differential includes lipomas and liposa rcomas. 4. Cholelithiasis without evidence of cholecystitis. 2. Indeterminate left adrenal mass. Further evaluation with nonemergent CT or MRI without and with co ntrast is recommended. Reviewed, dictated and finalized at location A. [employer] IMPRESSION: 1. Moderate volume of ascites. 2. Small pleural effusions with passive atelectasis in the lung bases. 3. Massive expansion of the fat surrounding the kidneys which results in distor tion of the contour of the right kidney and mass effect on the inferior vena ca va. Differential includes lipomas and liposarcomas. 4. Cholelithiasis without evidence of cholecystitis. 2. Indeterminate left adrenal mass. Further evaluation with nonemergent CT or M RI without and with contrast is recommended.
--- NOTE | ~2020-11-21 | XR_ITS ---
EXAMINATION: XR chest 1V portable DATE: 11/21/2020 11:45 INDICATION: Weakness. TECHNIQUE: A single frontal view of the chest was obtained. COMPARISON: Chest 2 views 10/09/2020, chest CT 10/04/2020 FINDINGS: There are mild airspace opacities in the mid and lower lung zones. No pleural effusion or p neumothorax. The heart size is normal. IMPRESSION: 1. Mild airspace opacities in the mid and lower lung zones, consistent with atelectasis versus pneumo rich. Reviewed, dictated and finalized at location A. ENGINE[employer] IMPRESSION: 1. Mild airspace opacities in the mid and lower lung zones, consistent with ate lectasis versus pneumonia.
--- NOTE | 2020-11-21 08:30 | ECG_ITS ---
Measurements Intervals [place] Rate: 91 P: 8 AK: 148 QRS: 37 QRSD: 97 T: 49 QT: 336 QTc: 415 Interpretive Statements SINUS RHYTHM WITH MARKED SINUS ARRHYTHMIA LOW QRS VOLTAGE- DIFFUSE LEADS BORDERLINE ECG Electronically Signed On 11-21-2020 11:03:44 DOCUMENT MANAGEMENT TECHNICIAN by Yoseph Mccray D.O.
--- NOTE | 2020-11-21 08:31 | ED.WEAKNESS ---
HPI - Weakness General Chief complaint: Weakness Stated complaint: Abnormal labs Time Seen by Provider: 11/21/20 08:30 History of Present Illness HPI Narrative: 55 yo male w/ h/o DM, COVID-19 brought in by EMS from the alf for weakness and abnormal labs. He was first admitted to the hospital around [facility] last year for COVID-19. He had a complicated hospital course and was ultimately discharged to a alf for rehab. He has since developed right leg cellulitis and worsening lower extremity edema. He had labs this morning which reportedly showed hyponatremia and elevated BUN. He does report pain in the right leg, but only when touched. He says that his urine output has been normal. Related Data Home Medications Medication Instructions Recorded Confirmed Januvia 100 mg PO DAILY 09/20/20 09/20/20 atorvastatin 20 mg PO DAILY 09/20/20 09/20/20 ketorolac 1 drp BID 10/04/20 10/04/20 apixaban 5 mg PO BID 10/29/20 Allergies Allergy/AdvReac Type Severity Reaction Status Date / Time lactose Allergy Intermediate DIARRHEA Verified 11/21/20 08:39 Penicillins Allergy Unknown Rash Verified 11/21/20 08:39 metformin AdvReac Diarrhea Verified 11/21/20 08:39 Review of Systems Review of Systems: All systems reviewed & are unremarkable except as noted in HPI and below Constitutional: Constitutional: Denies chills, Reports fatigue, Denies fever(s) and Reports weakness Cardiovascular: Cardiovascular: Denies chest pain Respiratory: Respiratory: Denies dyspnea Gastrointestinal: Gastrointestinal: Denies abdominal pain Genitourinary: Genitourinary: Denies oliguria Musculoskeletal: Musculoskeletal: Reports back pain Neurologic: Reports weakness PMFSH Past Medical History Medical History Cholelithiasis Diabetes mellitus Essential hypertension H/O: HTN (hypertension) Hyperlipidemia Leg cramp Lesion of adrenal gland Chest CTA 10/04/20 shows bilateral adrenal gland lesions, 2.5cm on the left and 2.1cm on right. Mixed hyperlipidemia Retinopathy Uncontrolled type 2 diabetes mellitus without complication, with long-term current use of insulin Surgical History Surgical History History of inguinal hernia repair History of prostatectomy Family History Family History Father Family history of cardiovascular disease Family history of malignant neoplasm of kidney Diabetes mellitus Hypertension Hypercholesterolemia Grandparent Family history of cardiovascular disease Mother Hypercholesterolemia Hypertension Father Hypertension Diabetes mellitus High cholesterol Kidney malignancy Legal Guardian No problems noted. Mother High cholesterol Hypertension Social History Social History Smoking status: Never smoker Tobacco type: cigarettes Additional smoking assessment comments: only smoked in high school Alcohol intake: never Substance use: never Substance use type: does not use Gender identity (if verbalized by the patient): Male Spiritual care concerns: No Exam Const: General: no acute distress, alert and ill appearing chronically Nutritional Appearance: obese morbidly obese Orientation/consciousness: patient oriented x3 HENMT: Head: normal to inspection Eyes: Pupils: Equal, round and reactive pupils present Resp: Effort & Inspection: normal respiratory effort Auscultation: clear to auscultation bilaterally Cardio: Rate: regular rate Rhythm: regular rhythm GI: Other: abdominal wall edema Skin: Other: erythema and induration of the right lower leg Neuro: General: patient oriented x3, moves all extremities, no focal motor deficits and CN's II-XI intact bilaterally Speech: normal speech Extrem: Other: Severe edema of BLE. Diffuse atrop
[2020-11-21 09:04] LABS: Basophils Percent Auto 0.2 % (0.2-1.2); Eosinophils Percent Auto 0.2 % (0-4.4); Hematocrit 29.1 % (42.0-52.0); Immature Granulocyte Absolute 0.26 K/mm3 (0.00-0.031); Immature Granulocyte Percent A 2.3 % (0-0.5); Lymphocytes Percent Auto 2.7 % (18.3-44.2); Mean Corpuscular HGB Conc 30.9 g/dl (32-36); Mean Corpuscular Hemoglobin 27.8 pg (26-34); Mean Corpuscular Volume 89.8 fl (80-100); Monocytes Absolute Auto 0.7 K/mm3 (0.1-0.6); Monocytes Percent Auto 6.3 % (2.6-8.5); Neutrophils Percent Auto 88.3 % (45.5-73.1); Platelet Count Result 258 k/mm3 (150-375); Red Blood Count 3.24 M/mm3 (4.6-6.20); Red Cell Distribution Width 15.9 % (11.5-14.5); White Blood Count 11.3 K/mm3 (4.5-10.0)
[2020-11-21 09:13] LABS: Add Urine Microscopic? YES; Appearance Urine Turbid (Clear); Bacteria Urine 4+ /hpf; Bilirubin Urine Negative (Negative); Blood Urine 2+ (Negative); Color Urine Yellow (Yellow); Glucose Urine UA Negative (Negative); Ketones Urine Negative (Negative); Leukocyte Esterase Ur 3+ LEU/UL (Negative); Mucus Urine Moderate /lpf; Nitrate Urine Negative (Negative); Protein Urine 2+ mg/dL (Negative); RBC Urine >75 /hpf (0-2); Specific Grav Ur 1.017 (1.001-1.035); Squamous Epithelial Cell Urine Few /hpf (Few); Urobilinogen Urine Negative mg/dL (<2.0); WBC Urine >75 /hpf
[2020-11-21 09:15] LABS: Lactic Acid Reflex 0.9 mmol/L (0.7-2.1)
[2020-11-21 09:16] LABS: INR 1.9; Prothrombin Time 22.4 Seconds (11.1-14.7)
[2020-11-21 10:25] LABS: Alanine Aminotransferase 44 U/L (4-50); Albumin Level 2.2 g/dL (3.5-5.1); Alkaline Phosphatase 121 U/L (38-126); Anion Gap 1 mmol/L (8-16); Aspartate Amino Transferase 71 U/L (17-59); Bilirubin,Total 0.8 mg/dL (0.2-1.3); Blood Urea Nitrogen 34 mg/dL (9-20); Calcium 7.7 mg/dL (8.4-10.2); Carbon Dioxide 25 mmol/L (22-30); Chloride 99 mmol/L (98-107); Estimated CRCL calculation 118 ml/min; Estimated Glomerular Filt Rate > 60; Glucose 126 mg/dL (75-110); Potassium 5.2 mmol/L (3.4-5.0); Sodium 125 mmol/L (137-145)
[2020-11-21 11:14] LABS: CRP 13.9 mg/dL (<1.0)
[2020-11-21 11:48] LABS: NT Pro B Type Natriuretic Pept 347 PG/ML (5-100)
--- NOTE | 2020-11-21 12:00 | PC.NURSE ---
introduced self to pt, pt denied needs at this time noted to have drainage from right lower extremity. pt politely declined dressing change at this time
--- NOTE | 2020-11-21 13:00 | PM.IMHP ---
H&P: HPI History of Present Illness Date/Time: 11/21/20 13:00 Chief Complaint: Weakness and low-sodium. Narrative: This is a 55-year-old male with type 2 diabetes mellitus, hypertension, and hyperlipidemia who presented to the emergency department earlier today via EMS from [facility] in [place] for evaluation of weakness and low sodium levels found on lab work today. I am familiar with the patient as he was admitted to our service twice in September 2020, initially for acute kidney injury due to volume depletion as a result of recent COVID infection. He was admitted about 10 days thereafter, once again with acute kidney injury in addition to DVT and pulmonary embolism. Imaging during that stay revealed large intra-abdominal masses with lipomatous consistency for which she was transferred to [place] for further evaluation. A biopsy of one of the masses was ?inconclusive? and it sounds as though that there are plans for open biopsy at some point in time however he is too weak for that and he was discharged to [facility] for rehab to gain some strength. Since his discharge from [place], he has continued to gain weight and now has edema to the chest. He has weeping from his legs and more recently he has developed pain in erythema in the right lower leg and the dorsum of the right foot which she is concerned may be infected. Over the past 10 days he has gotten progressively more weak to the point where he can not even stand on his own and he has essentially been bed-bound. He is now only receiving a reported 30 minutes of physical therapy 5 days a week from the bed without improvement. Due to the progressive weakness, labs were drawn today and he was sent to the emergency department for further evaluation of hyponatremia. He has noticed perhaps a slight decrease in urine output over the past couple of weeks and is also been experiencing urinary urgency and incontinence. His taste and smell have gotten better since his COVID infection a few months ago, but his appetite is not back to normal though he denies nausea and vomiting. He has not had any abdominal pain but reports increasing abdominal girth, and fact he was told he had ascites while at [place] although he did not have a paracentesis done at that time. No diarrhea. No fever, chills, or sweats. He denies lightheadedness and dizziness. No chest pain or significant shortness of breath. Review of Systems Review of Systems: Narrative: Twelve systems were reviewed with pertinent positives and negatives as per HPI. No fever, chills, or sweats. No recent cold or flu symptoms. He denies sinus congestion, rhinorrhea, otalgia, and odynophagia. No chest pain, pleuritic pain, or palpitations. No cough or shortness of breath. He denies nausea, vomiting, diarrhea. Denies urinary retention. His diabetes is well controlled on metformin. He reports that the rehab facility does not check his glucose very frequently. No blurry vision, polydipsia, or polyuria. Except as documented, all other systems were reviewed and are negative. [facility] Past Medical History Medical History (Updated 11/21/20 @ 18:02 by Maryellen Wilson PA-C) Cholelithiasis Chronic anemia Chronic anticoagulation Diabetic retinopathy Essential hypertension Gastroparesis History of prostate cancer Status post prostatectomy and radiation therapy. Intraabdominal mass Large intra-abdominal lipomas and/or lipomatous masses with the largest measuring 23 x 25 x 37 cm. Biopsy at [place] in September 2020 was inconclusive.? Lesion of adrenal gland Chest CTA on 10/04/20 shows bilateral adrenal gland lesions, 2.5cm on the left and 2.1cm on right. Mixed hyperlipidemia Pulmonary emboli (~09/2020) Right leg DVT (~09/2020) Type 2 diabetes mellitus Recent hemoglobin A1c was 5.8%. Surgical History Surgical History (Updated 11/21/20 @ 17:36 by Maryellen Wilson PA-C) History of inguinal hernia repair History of prostatectomy Status post LASIK surgery
[2020-11-21] MEDS: FUROSEMIDE INJ 100 MG/10 ML VIAL 80 MG IV PUSH (13:15)
--- NOTE | 2020-11-21 13:30 | PC.NURSE ---
offered meal and repositioning to the pt, declined at this time, lights dimmed and allowed to rest
--- NOTE | 2020-11-21 14:56 | PC.NURSE ---
offered to wrap legs of the pt, politely declined stating, Ernestine said to wit to dress them until I got to the floor, as wound assessment pictures are to be taken. Ernestine agreed with this informed receiving RN of same
--- NOTE | 2020-11-21 15:09 | ADMGEN ---
This patient, Gómez Lozano, was admitted to Medical Room 344-01. Patient/family oriented to hospital policies and general routines including ID bracelet, bed and alarms, visiting hours, pain management, procedures, bathroom and other care routines, personal items, smoking policy, room service/diet, and visiting hours. Information on how to activate the Rapid Response Team has been discussed. Patient/Family are encouraged to report perceived risks to care and to ask questions if they do not understand what they are told or what they should do.
[2020-11-21 17:21] LABS: Creatinine Urine 10.5 mg/dL; Urea Random Urine 142 MG/DL
[2020-11-21 17:24] LABS: Sodium Urine Random 91 meq/L
[2020-11-21 18:40] LABS: Creatine Kinase 45 U/L (55-170)
[2020-11-21 18:41] LABS: Anion Gap 4 mmol/L (8-16); Blood Urea Nitrogen 32 mg/dL (9-20); Calcium 7.8 mg/dL (8.4-10.2); Carbon Dioxide 27 mmol/L (22-30); Chloride 96 mmol/L (98-107); Estimated CRCL calculation 107 ml/min; Estimated Glomerular Filt Rate > 60; Glucose 152 mg/dL (75-110); Magnesium 1.7 mg/dL (1.6-2.3); Potassium 4.5 mmol/L (3.4-5.0); Sodium 127 mmol/L (137-145)
[2020-11-21] MEDS: APIXABAN 5 MG TABLET PO (18:53)
[2020-11-21 19:17] LABS: Hemoglobin A1C 5.6 % (<5.7)
[2020-11-21 20:21] LABS: Thyroid Stimulating Hormone Reflex 0.069 uIU/mL (0.465-4.68)
[2020-11-21 20:22] LABS: Hepatitis B Surface Antigen Negative (Negative)
[2020-11-21 20:27] LABS: HAV RESULT Negative (Negative); Hepatitis B Core IgM Result Negative (Negative)
[2020-11-21 20:39] LABS: Hepatitis C Virus Antibody Negative (Negative)
[2020-11-21 21:05] LABS: Free T4 Free Thyroxine Reflex 2.26 ng/dL (0.78-2.19)
[2020-11-21] MEDS: FUROSEMIDE INJ 40 MG/4 ML VIAL IV PUSH (22:44)
[2020-11-21] MEDS: KETOROLAC 0.5% OP SOLN 5 ML BOTTLE 1 DROP EACH EYE (22:48)
[2020-11-21 22:50] LABS: Glucose Point of Care 142 (65-105)
[2020-11-22 00:05] LABS: Sodium 123 mmol/L (137-145)
[2020-11-22 03:08] VITALS: PULSE 89; O2SAT 99
[2020-11-22] MEDS: METOCLOPRAMIDE HCL 10 MG TABLET PO ×3 (05:40→17:27)
[2020-11-22 06:00] VITALS: BP 125/66; PULSE 101; RESP 14; TEMP 36.4; O2SAT 100
[2020-11-22 07:40] LABS: Glucose Point of Care 161 (65-105)
[2020-11-22 08:57] LABS: Basophils Absolute Auto 0.1 K/mm3 (0.0-0.1); Basophils Percent Auto 0.3 % (0.2-1.2); Eosinophils Absolute Auto 0.1 K/mm3 (0-0.3); Eosinophils Percent Auto 0.5 % (0-4.4); Hemoglobin 9.9 g/dL (14.0-18.0); Immature Granulocyte Absolute 0.77 K/mm3 (0.00-0.031); Immature Granulocyte Percent A 5.1 % (0-0.5); Lymphocytes Absolute Auto 0.35 K/mm3 (0.9-3.2); Lymphocytes Percent Auto 2.3 % (18.3-44.2); Mean Corpuscular HGB Conc 31.9 g/dl (32-36); Mean Corpuscular Hemoglobin 28.6 pg (26-34); Mean Corpuscular Volume 89.6 fl (80-100); Mean Platelet Volume 10.5 fl (7.4-10.4); Monocytes Absolute Auto 0.9 K/mm3 (0.1-0.6); Monocytes Percent Auto 5.9 % (2.6-8.5); Neutrophils Absolute Auto 13.1 K/mm3 (1.3-6.7); Neutrophils Percent Auto 85.9 % (45.5-73.1); Platelet Count Result 323 k/mm3 (150-375); Red Blood Count 3.46 M/mm3 (4.6-6.20); Red Cell Distribution Width 15.9 % (11.5-14.5); White Blood Count 15.2 K/mm3 (4.5-10.0)
--- NOTE | 2020-11-22 09:07 | PM.CNNEP ---
Assessment and Plan Assessment and plan (1) Hyponatremia: Code(s): E87.1 - Hypo-osmolality and hyponatremia Status: Acute Assessment and Plan: The patient has low sodium. This is been going on since September. Before that the sodium level had been normal, in May of 2020. Several different things can cause low sodium. Hormonal: The patient has had a TSH and a cortisol level. He does have bilateral adrenal adenomas. Is not clear what the nature of these is but because of all the swelling I wonder if there may be some compression on the normal gland. Will check another cortisol level. Cancer: Patient has a history of prostate cancer and says his PSA is been okay. Prostate cancer is not high in the list of things that cause hyponatremia. He could also have some sort of carcinomatous involvement with those lipomas. Pulmonary: The patient has had pulmonary emboli. This is something which could potentially cause some trouble with low sodium. He does not seem to have any other issues with his lungs. CARPET SEWER: The patient does not have any history of neurologic issues He does not think he was on diuretics as an outpatient, but since he was in a rehab center he might have been on a diuretic. At this point we should fluid restrict him. I will check another cortisol level. Will check serum and urine osmolality. (2) Anasarca: Code(s): R60.1 - Generalized edema Status: Acute Assessment and Plan: The patient has anasarca. This could be due to the lipomas in compression of venous drainage. Also has had pulmonary emboli and so could have pulmonary hypertension. Will repeat an echo and repeat a venous Doppler to be sure there is nothing else going on. The patient has a very low albumin. This could lead to some contribution to the swelling as well. I am going to give him some albumin and diuretics to see if we can help this out. As long as he is fluid restricted then sodium should not drop. But we can keep an eye on this. (3) Deep vein thrombophlebitis of lower leg: Code(s): I80.209 - Phlebitis and thrombophlebitis of unspecified deep vessels of unspecified lower extremity Status: Acute Assessment and Plan: Patient had a DVT. He is on Eliquis. (4) Pulmonary emboli: Onset Date: ~09/2020 Qualifiers: Acute cor pulmonale presence: unspecified Chronicity: acute Pulmonary embolism type: unspecified Qualified Code(s): I26.99 - Other pulmonary embolism without acute cor pulmonale Code(s): I26.99 - Other pulmonary embolism without acute cor pulmonale Status: Acute Assessment and Plan: He had a pulmonary embolus and so could have pulmonary hypertension (5) Hypoalbuminemia: Code(s): E88.09 - Other disorders of plasma-protein metabolism, not elsewhere classified Status: Acute Assessment and Plan: Albumin level is very low. He probably is not eating very well with all this going on. Also possible infection in the leg wounds could contribute to poor appetite. (6) Urinary tract infection: Code(s): N39.0 - Urinary tract infection, site not specified Status: Acute Assessment and Plan: Patient has pyuria. (7) Chronic anemia: Code(s): D64.9 - Anemia, unspecified Status: Acute Assessment and Plan: The patient has anemia. Most likely due to inflammation. History of Present Illness Reason for Consult Consult date: 11/22/20 Chief Complaint Chief complaint: Cellulitis, Anasarca, UTI, Hyponatremia History of Present Illness Narrative: Gómez is a very pleasant 55-year-old gentleman who was feeling well until last September. In late August. A week after diagnosis he came to the ER and had generalized weakness nausea vomiting and decreased p.o. intake. He was seen in the ER and admitted. He was felt to be dehydrated. His creatinine was elevated. He was given some IV fluids but not lots becaus
[2020-11-22 09:20] LABS: Alanine Aminotransferase 32 U/L (4-50); Albumin Level 2.4 g/dL (3.5-5.1); Alkaline Phosphatase 136 U/L (38-126); Anion Gap 5 mmol/L (8-16); Aspartate Amino Transferase 44 U/L (17-59); Bilirubin,Total 0.7 mg/dL (0.2-1.3); Blood Urea Nitrogen 30 mg/dL (9-20); Calcium 7.6 mg/dL (8.4-10.2); Carbon Dioxide 25 mmol/L (22-30); Chloride 94 mmol/L (98-107); Estimated CRCL calculation 96 ml/min; Estimated Glomerular Filt Rate > 60; Glucose 175 mg/dL (75-110); Lactic Acid Reflex 1.1 mmol/L (0.7-2.1); Magnesium 1.6 mg/dL (1.6-2.3); Phosphorus 3.8 mg/dL (2.5-4.5); Sodium 124 mmol/L (137-145)
[2020-11-22 09:42] LABS: Vancomycin Trough 25.1 ug/mL (10.0-20.0)
[2020-11-22] MEDS: KETOROLAC 0.5% OP SOLN 5 ML BOTTLE 1 DROP EACH EYE ×2 (09:50→20:07)
[2020-11-22] MEDS: APIXABAN 5 MG TABLET PO ×2 (09:50→17:28)
[2020-11-22] MEDS: FUROSEMIDE INJ 40 MG/4 ML VIAL IV PUSH (09:50)
[2020-11-22] MEDS: ALBUMIN HUMAN 25% 25 GM/100 ML 100 ML IVPB ×2 (10:47→17:28)
[2020-11-22 11:10] LABS: Total Protein Urine Random 16 mg/dL; Ur Ttl Prot Creatinine Ratio 0.23 mg/mg (0-0.20)
[2020-11-22 11:16] LABS: Sodium Urine Random 31 meq/L
--- NOTE | 2020-11-22 11:25 | PM.IMPN ---
Progress Note: A&P Assessment and Plan (1) Septicemia: Code(s): A41.9 - Sepsis, unspecified organism Status: Acute Assessment and Plan: BCx (1of2) positive for GNB probably urinary source. Sepsis sx present on admission with elevated WBC, tachycardia, tachypnea. Continue IV antibiotics. Follow white count. Follow up on culture results. (2) Anasarca: Code(s): R60.1 - Generalized edema Status: Acute Assessment and Plan: Patient is markedly edematous. Echocardiogram 10/05/2020 show hyperdynamic appearing LV function with EF of 65-70% and normal diastolic function. The right ventricular chamber size dimension was normal as well. No mention of cirrhosis by CT Abdomen on 10/04/21 but does show a large right sided abdominal lipoma ([id number]) that appears to be compressing the IVC. This could be causing increase in venous pressure causing the massive edema. Also consider nephrotic syndrome from his DM with the 2+ protienuria and albumin 2.2. Currently on IV lasix with poor UOP given the amount of edema. May need to go back to [facility] to have definite surgical treatment. Or stent placement. Consider CTA to determine severity of the stenosis. (3) Cellulitis of leg, right: Code(s): L03.115 - Cellulitis of right lower limb Status: Acute Assessment and Plan: Rt LE cellulitis. No significant pain. BCx positive for GNB but this could be from the urine. WBC worse today but could be lagging behind. Continue broad spectrum abx with plans to narrow coverage when able. Elevate. YOUSUF wraps. Follow WBC (4) Hyponatremia: Code(s): E87.1 - Hypo-osmolality and hyponatremia Status: Acute Assessment and Plan: Na 125 on admission but dropping with Lasix to suggest related to that he is intravascularly depleted. Urine sodium elevated but he is on diuretics which could alter this. Albumin started which should help. Lasix changed to Bumex. Follow. (5) Urinary tract infection: Code(s): N39.0 - Urinary tract infection, site not specified Status: Acute Assessment and Plan: UA noted. UCx pending. BCx (1of2) growing GNB suspect from urinary source. Continue Primaxin for now. (6) Hx of pulmonary edema: Code(s): Z87.09 - Personal history of other diseases of the respiratory system Status: Acute Assessment and Plan: Patietn with DVT and PE in September. Probably related to the mass compressing the IVC causing increase in venous stasis and from the nephrotic syndrome making him hypercoagulable. Stable. Continue Eliquis. (7) Hypoalbuminemia: Code(s): E88.09 - Other disorders of plasma-protein metabolism, not elsewhere classified Status: Acute Assessment and Plan: Hypoalbumin related to renal protein loss. This may be related to the large abdominal mass displacing the kidneys. Consider also related to his DM or multifactorial. Urine studies ordered. Continue to monitor. (8) Type 2 diabetes mellitus: Code(s): E11.9 - Type 2 diabetes mellitus without complications Status: Inactive Assessment and Plan: A1c 5.6. The patient's blood glucose was reviewed on 11/22 Glucose remains reasonably well controlled. Continue AccuCheks covering with sliding scale. Hypoglycemia protocol available as needed. Continue current medications. (9) Chronic anemia: Code(s): D64.9 - Anemia, unspecified Status: Acute Assessment and Plan: Hgb slowly drifting down past few months. Hgd now at 9.0 on admission but better today at 9.9. B12/folate normal in me. Also in September, Fe low at 23 with TIBC 160 and Saturation 14; Ferritin 990 and stool guaiac negative. More likely anemia of chronic disease and the loss of protein. SPEP ordered. Will follow. Subjective Date/time seen: 11/22/20 11:25 Interval history: Date of service 11/22/20 55yo male with DM, HTN and hx
[2020-11-22 12:05] LABS: Glucose Point of Care 172 (65-105)
[2020-11-22 14:00] VITALS: BP 130/68; PULSE 97; RESP 16; TEMP 36.2; O2SAT 100
[2020-11-22 16:33] LABS: Sodium 123 mmol/L (137-145)
[2020-11-22 16:40] LABS: Glucose Point of Care 164 (65-105)
[2020-11-22] MEDS: BUMETANIDE INJ 1 MG/4 ML VIAL IV PUSH (17:27)
[2020-11-22 20:11] VITALS: BP 120/69; PULSE 101; RESP 14; TEMP 37.1; O2SAT 100
[2020-11-22 21:23] LABS: Glucose Point of Care 183 (65-105)
--- NOTE | 2020-11-23 | ECHO_ITS ---
Patient Info Name: Gómez Lozano Age: 55 years : 1965 Gender: Male Ht: 68 in Wt: 281 lbs BSA: 2.54 m2 HR: 101 bpm BP: 120 / 69 mmHg Technical Quality: Fair Exam Date: 11/23/2020 9:26 AM Exam Location: [facility] Pulmonary Exam Room: [facility] Patient Status: Inpatient Admit Date: 11/21/2020 Staff Ordering Physician: Ryan Mcleod MD Investment Sales Assistant: Sheron Hui RDCS Attending Provider: Phil Saenz MD Referring Physician: Shani MCNEILL; Exam Type: CA echo doppler color flow Study Info Indications - SEVERE EDEMA HX/O PE EVAL TR PULM HTN Complete two-dimensional, color flow and Doppler transthoracic echocardiogram is performed. Summary 1. Complete two-dimensional, color flow and Doppler transthoracic echocardiogram is performed. 2. Left ventricular chamber dimension is normal. 3. Left ventricular systolic function is normal, estimated at 65-70%. 4. The left ventricular diastolic function is grade I diastolic dysfunction. 5. E/e' 8 is minimally elevated. 6. There is mild aortic valve sclerosis. 7. There is trace tricuspid valve regurgitation. 8. No pulmonary hypertension, estimated pulmonary arterial systolic pressure is 26 mmHg. Left Ventricle E/e' 8 is minimally elevated. Left ventricular chamber dimension is normal. Left ventricular systolic function is normal, estimated at 65-70%. The left ventricular diastolic function is grade I diastolic dysfunction. Right Ventricle Right ventricular chamber dimension is normal. Right ventricular systolic function is normal. Left Atria Left atrial chamber dimension is normal. Right Atria Right atrial chamber dimension is normal. Aortic Valve The aortic valve is trileaflet. There is mild aortic valve sclerosis. There is no aortic valve stenosis. There is no aortic valve regurgitation. Pulmonic Valve There is no pulmonic regurgitation. Mitral Valve There is no mitral valve stenosis. There is no mitral valve regurgitation. Tricuspid Valve There is trace tricuspid valve regurgitation. No pulmonary hypertension, estimated pulmonary arterial systolic pressure is 26 mmHg. Pericardium/Pleural There is no pericardial effusion. Inferior Vena Cava Normal inferior vena cava with >50% collapse upon inspiration consistent with normal right atrial pressure, 5 mmHg. Aorta The aortic root size at the sinus of Valsalva is normal. Left Ventricular Outflow Tract Name Value Normal LVOT 2D LVOT Diameter 2.1 cm LVOT Doppler LVOT Peak Gradient 4 mmHg LVOT Mean Gradient 3 mmHg LVOT VTI 21 cm LVOT VTI/AV VTI Ratio 1.0 LVOT Stroke Volume 77 ml LVOT CO 17.1 l/min LVOT CI 6.7 l/min/m2 Pulmonic Valve Name Value Normal PV Doppler
[2020-11-23 05:51] LABS: Basophils Percent Auto 0.2 % (0.2-1.2); Eosinophils Absolute Auto 0.1 K/mm3 (0-0.3); Eosinophils Percent Auto 0.5 % (0-4.4); Hematocrit 26.9 % (42.0-52.0); Hemoglobin 8.4 g/dL (14.0-18.0); Immature Granulocyte Absolute 0.81 K/mm3 (0.00-0.031); Immature Granulocyte Percent A 8.4 % (0-0.5); Lymphocytes Absolute Auto 0.31 K/mm3 (0.9-3.2); Lymphocytes Percent Auto 3.2 % (18.3-44.2); Mean Corpuscular HGB Conc 31.2 g/dl (32-36); Mean Corpuscular Hemoglobin 27.5 pg (26-34); Mean Corpuscular Volume 87.9 fl (80-100); Mean Platelet Volume 11.1 fl (7.4-10.4); Monocytes Absolute Auto 0.5 K/mm3 (0.1-0.6); Monocytes Percent Auto 5.5 % (2.6-8.5); Neutrophils Percent Auto 82.2 % (45.5-73.1); Platelet Count Result 282 k/mm3 (150-375); Red Blood Count 3.06 M/mm3 (4.6-6.20); Red Cell Distribution Width 15.6 % (11.5-14.5); White Blood Count 9.7 K/mm3 (4.5-10.0)
[2020-11-23] MEDS: METOCLOPRAMIDE HCL 10 MG TABLET PO ×3 (05:53→17:02)
[2020-11-23 06:00] VITALS: BP 119/61; PULSE 90; RESP 14; TEMP 36.8; O2SAT 99
[2020-11-23 06:03] LABS: Potassium 3.8 mmol/L (3.4-5.0)
[2020-11-23 06:04] LABS: Albumin Level 2.3 g/dL (3.5-5.1); Anion Gap 2 mmol/L (8-16); Blood Urea Nitrogen 32 mg/dL (9-20); Calcium 7.6 mg/dL (8.4-10.2); Carbon Dioxide 28 mmol/L (22-30); Chloride 95 mmol/L (98-107); Estimated CRCL calculation 96 ml/min; Estimated Glomerular Filt Rate > 60; Glucose 165 mg/dL (75-110); Magnesium 1.6 mg/dL (1.6-2.3); Phosphorus 3.6 mg/dL (2.5-4.5); Sodium 125 mmol/L (137-145)
[2020-11-23] MEDS: INSULIN ASPART (*BKC) 100 UNITS/ML SUB-Q ×2 (07:31→14:00)
[2020-11-23 07:32] LABS: Glucose Point of Care 202 (65-105)
[2020-11-23] MEDS: APIXABAN 5 MG TABLET PO ×2 (09:45→17:01)
[2020-11-23] MEDS: BUMETANIDE INJ 1 MG/4 ML VIAL IV PUSH ×2 (09:45→17:02)
[2020-11-23] MEDS: KETOROLAC 0.5% OP SOLN 5 ML BOTTLE 1 DROP EACH EYE ×2 (09:45→21:14)
[2020-11-23] MEDS: ALBUMIN HUMAN 25% 25 GM/100 ML 100 ML IVPB ×2 (09:47→16:56)
[2020-11-23 10:20] VITALS: BMI 44.1
[2020-11-23 12:16] LABS: Glucose Point of Care 201 (65-105)
--- NOTE | 2020-11-23 12:46 | PM.IMPN ---
Progress Note: A&P Assessment and Plan (1) Septicemia: Code(s): A41.9 - Sepsis, unspecified organism Status: Acute Assessment and Plan: BCx (1of2) positive for Klebsiella pneumonia probably urinary source. UCx positive for GNB. Sepsis sx present on admission with elevated WBC, tachycardia, tachypnea. WBC blu and no fevers. Continue IV antibiotics. Follow up on final culture results. (2) Anasarca: Code(s): R60.1 - Generalized edema Status: Acute Assessment and Plan: Patient is markedly edematous. Echocardiogram 10/05/2020 show hyperdynamic appearing LV function with EF of 65-70% and normal diastolic function. The right ventricular chamber size dimension was normal as well (with minimally elevated RA/RV/PA pressures). No mention of cirrhosis by CT Abdomen on 10/04/21 but does show a large right sided abdominal lipoma ([id number]) that appears to be compressing the IVC. This could be causing increase in venous pressure causing the massive edema. Also consider nephrotic syndrome from his DM with the 2+ protienuria and albumin 2.2. Currently on IV lasix with good UOP. May need to go back to [place] to have definite surgical treatment; Or stent placement but no plans to do any invasive treatment given his current infections. Consider CTA to determine severity of the stenosis. (3) Cellulitis of leg, right: Code(s): L03.115 - Cellulitis of right lower limb Status: Acute Assessment and Plan: Rt LE cellulitis. No significant pain. BCx positive for GNB but this could be from the urine. WBC normal now. Continue broad spectrum abx with plans to narrow coverage when able. Continue to elevate the LE and YOUSUF wraps. (4) Hyponatremia: Code(s): E87.1 - Hypo-osmolality and hyponatremia Status: Acute Assessment and Plan: Na 125 on admission but dropping with Lasix to suggest related to that he is intravascularly depleted. Maura 91 but was on Lasix which would skew this result. Albumin started which should help. Lasix changed to Bumex. Repeat Maura 31 and serum Na up slightly to 125. Follow. (5) Urinary tract infection: Code(s): N39.0 - Urinary tract infection, site not specified Status: Acute Assessment and Plan: UA noted. UCx growing GNB. BCx (1of2) growing Klebsiella pneumonia. Sensitivities pending. Continue Primaxin for now. (6) Hx of pulmonary edema: Code(s): Z87.09 - Personal history of other diseases of the respiratory system Status: Acute Assessment and Plan: Patient with DVT and PE in September. Probably related to the mass compressing the IVC causing increase in venous stasis and from the nephrotic syndrome making him hypercoagulable. Doppler this admission showing no DVT in either leg. Stable. Continue Eliquis. (7) Hypoalbuminemia: Code(s): E88.09 - Other disorders of plasma-protein metabolism, not elsewhere classified Status: Acute Assessment and Plan: Hypoalbuminemia noted. Urine with 2+ protein but Prot/Cr ratio almost normal. Kidney's are displaced by this mass. He has DM but it is well controlled. Low apbumin related to poor oral intake? Contine to monitor. (8) Type 2 diabetes mellitus: Code(s): E11.9 - Type 2 diabetes mellitus without complications Status: Inactive Assessment and Plan: A1c 5.6. The patient's blood glucose was reviewed on 11/23 Glucose remains reasonably well controlled. Continue AccuCheks covering with sliding scale. Hypoglycemia protocol available as needed. Continue current medications. (9) Chronic anemia: Code(s): D64.9 - Anemia, unspecified Status: Acute Assessment and Plan: Hgb slowly drifting down past few months. Hgd now at 9.0 on admission with repeat in the 8-9 range. B12/folate normal in September. Also in September, Fe low at 23 with TIBC 160 and Saturation 14; Ferritin 990 and sto
[2020-11-23 13:38] LABS: Glucose Point of Care 216 (65-105)
[2020-11-23 14:00] VITALS: BP 136/63; PULSE 99; RESP 18; TEMP 35.8; O2SAT 98
--- NOTE | 2020-11-23 14:25 | PCNSR ---
On 11/23/20, the student, Norah Starkey, provided care and completed [facility] documentation on this patient. I have reviewed the student's documentation and agree with the findings.
--- NOTE | 2020-11-23 15:42 | P.PNNP_ITS ---
Progress Note: A&P Assessment and Plan (1) Hyponatremia: Code(s): E87.1 - Hypo-osmolality and hyponatremia Status: Acute Assessment and Plan: * present as far back as September 2020 but normal in May 2020 * TSH and cortisol level x 2 okay * only real lung issue is his history of PEs so this could make susceptible to low sodium levels * no neurological issues to speak of (i.e. brain tumors, head injury...etc) * more likely related to his volume overload/swelling/edema * continue fluid restriction for now (2) Anasarca: Code(s): R60.1 - Generalized edema Status: Acute Assessment and Plan: * this is quite severe * lipomas compressing IVC leading to impaired venous drainage [(as suggested by imaging)?] * component of pulmonary HTN secondary to pulmonary emboli(?) * hypoalbuminemia likely playing a role; only mild proteinuria noted * continue IV albumin + IV bumex for now . (3) Hypoalbuminemia: Code(s): E88.09 - Other disorders of plasma-protein metabolism, not elsewhere classified Status: Acute Assessment and Plan: * as noted by labs * likely due to poor oral intake complicated by legs wounds * partly responsible for #2 * follow trend with IV albumin (4) Urinary tract infection: Code(s): N39.0 - Urinary tract infection, site not specified Status: Acute Assessment and Plan: * urine and blood (1 out of 2) cultures with Klebsiella * on antibiotic therapy (5) Chronic anemia: Code(s): D64.9 - Anemia, unspecified Status: Acute Assessment and Plan: * likely due to infection/inflammation * follow trend of H/H Will continue to follow. Subjective Date/time seen: 11/23/20 15:42 Mild shortness of breath but seems comfortable laying flat; reasonable UOP with IV albumin + IV bumex but not negative with regard to I/Os as of yet; no other events/issues overnight or earlier this AM. Exam Narrative: Exam Narrative: General: WD/WN male laying in bed Heart: normal S1 and S2; no rub Lungs: clear to auscultation Abdomen: soft, nontender, nondistended, positive bowel sounds Extremities: no cyanosis or clubbing; edema from chest down Skin: right calf/quintana rash present Objective Data Vital Signs Vital Signs: Vital Signs Temp Pulse Resp BP Pulse Ox 02/08/21 14:00 35.8 C L 99 18 136/63 98 11/23/20 06:00 36.8 C 90 14 119/61 99 11/22/20 20:11 37.1 C 101 H 14 120/69 100 Intake/Output Intake/Output: Intake & Output 11/20/20 11/21/20 11/22/20 11/23/20 23:59 23:59 23:59 23:59 Intake Total 1500 2930 1400 Output Total 600 1550 600 Balance 900 1380 800 Meds/Results Medications: Active Medications Generic Name Dose Route Start Last Admin Trade Name Freq PRN Reason Stop Dose Admin Apixaban 5 mg 11/21/20 18:15 11/23/20 17:01 Apixaban 5 Mg Tablet PO 12/22/20 18:16 5 mg BID ABDIRASHID Administration Bumetanide 1 mg 11/22/20 17:00 11/23/20 17:02 Bumetanide Inj 1 Mg/4 Ml Vial IV PUSH 1 mg BID ABDIRASHID Administration Dextrose 12.5 gm 11/21/20 18:06 Dextrose 50% 25 Gm/50 Ml Syringe IV PUSH PRN PRN Hypoglycemia Protocol Glucagon 1 mg 11/21/20 18:06 Glucagon For Inj 1 Mg Vial
--- NOTE | 2020-11-23 15:42 | PM.PNNEP ---
Progress Note: A&P Assessment and Plan (1) Hyponatremia: Code(s): E87.1 - Hypo-osmolality and hyponatremia Status: Acute Assessment and Plan: present as far back as September 2020 but normal in May 2020 TSH and cortisol level x 2 okay only real lung issue is his history of PEs so this could make susceptible to low sodium levels no neurological issues to speak of (i.e. brain tumors, head injury...etc) more likely related to his volume overload/swelling/edema continue fluid restriction for now (2) Anasarca: Code(s): R60.1 - Generalized edema Status: Acute Assessment and Plan: this is quite severe lipomas compressing IVC leading to impaired venous drainage [(as suggested by imaging)?] component of pulmonary HTN secondary to pulmonary emboli(?) hypoalbuminemia likely playing a role; only mild proteinuria noted continue IV albumin + IV bumex for now . (3) Hypoalbuminemia: Code(s): E88.09 - Other disorders of plasma-protein metabolism, not elsewhere classified Status: Acute Assessment and Plan: as noted by labs likely due to poor oral intake complicated by legs wounds partly responsible for #2 follow trend with IV albumin (4) Urinary tract infection: Code(s): N39.0 - Urinary tract infection, site not specified Status: Acute Assessment and Plan: urine and blood (1 out of 2) cultures with Klebsiella on antibiotic therapy (5) Chronic anemia: Code(s): D64.9 - Anemia, unspecified Status: Acute Assessment and Plan: likely due to infection/inflammation follow trend of H/H Will continue to follow. Subjective Date/time seen: 11/23/20 15:42 Mild shortness of breath but seems comfortable laying flat; reasonable UOP with IV albumin + IV bumex but not negative with regard to I/Os as of yet; no other events/issues overnight or earlier this AM. Exam Narrative: Exam Narrative: General: WD/WN male laying in bed Heart: normal S1 and S2; no rub Lungs: clear to auscultation Abdomen: soft, nontender, nondistended, positive bowel sounds Extremities: no cyanosis or clubbing; edema from chest down Skin: right calf/quintana rash present Objective Data Vital Signs Vital Signs: Vital Signs Temp Pulse Resp BP Pulse Ox 11/23/20 14:00 35.8 C L 99 18 136/63 98 02/08/21 06:00 36.8 C 90 14 119/61 99 11/22/20 20:11 37.1 C 101 H 14 120/69 100 Intake/Output Intake/Output: Intake & Output 11/20/20 11/21/20 11/22/20 11/23/20 23:59 23:59 23:59 23:59 Intake Total 1500 2930 1400 Output Total 600 1550 600 Balance 900 1380 800 Meds/Results Medications: Active Medications Generic Name Dose Route Start Last Admin Trade Name Freq PRN Reason Stop Dose Admin Apixaban 5 mg 11/21/20 18:15 11/23/20 17:01 Apixaban 5 Mg Tablet PO 12/22/20 18:16 5 mg BID ABDIRASHID Administration Bumetanide 1 mg 11/22/20 17:00 11/23/20 17:02 Bumetanide Inj 1 Mg/4 Ml Vial IV PUSH 1 mg BID ABDIRASHID Administration Dextrose 12.5 gm 11/21/20 18:06 Dextrose 50% 25 Gm/50 Ml Syringe IV PUSH PRN PRN Hypoglycemia Protocol Glucagon 1 mg 11/21/20 18:06 Glucagon For Inj 1 Mg Vial IM PRN PRN Hypoglycemia Protocol Glucose 15 gm 11/21/20 18:06 Glucose Oral Gel 15 Gm Of Glucse In 37.5 Gm Tube PO PRN PRN Hypoglycemia Protocol Imipenem/Cilastatin Sodium 500 mg in 100 mls @ 300 mls/hr 11/21/20 17:00 11/23/20 14:21 Primaxin 500 Mg/D5w 100 Ml IVPB Infused Q6HR ABDIRASHID Infusion Dextrose 1,000 mls @ 100 mls/hr 11/21/20 18:06 Dextrose 5% 1,000 Ml IVPB PRN PRN Hypoglycemia Protocol Albumin Human 100 mls @ 60 mls/hr 11/22/20 17:00 11/23/20 16:56 Albutein IVPB 60 mls/hr BID ABDIRASHID Administration Vancomycin HCl 2,000 mg in 500 mls @ 250 mls/hr 11/22/20 21:00 11/23/20 14:01 Vancomycin 2,000 Mg/D5w 500 Ml IVPB Infused Q
[2020-11-23 17:48] LABS: Glucose Point of Care 159 (65-105)
[2020-11-23 18:27] LABS: SARS-CoV-2 RNA PCR Negative
[2020-11-23 20:00] VITALS: BP 127/64; PULSE 99; RESP 16; TEMP 37.4; O2SAT 96
[2020-11-23 21:23] LABS: Glucose Point of Care 147 (65-105)
[2020-11-24 05:59] VITALS: BP 128/67; PULSE 97; RESP 20; TEMP 36.4; O2SAT 98
[2020-11-24] MEDS: METOCLOPRAMIDE HCL 10 MG TABLET PO ×3 (06:02→17:33)
[2020-11-24 06:07] LABS: Basophils Percent Auto 0.3 % (0.2-1.2); Eosinophils Absolute Auto 0.1 K/mm3 (0-0.3); Eosinophils Percent Auto 1.1 % (0-4.4); Hematocrit 24.7 % (42.0-52.0); Hemoglobin 8.1 g/dL (14.0-18.0); Immature Granulocyte Absolute 0.82 K/mm3 (0.00-0.031); Lymphocytes Absolute Auto 0.39 K/mm3 (0.9-3.2); Lymphocytes Percent Auto 3.3 % (18.3-44.2); Mean Corpuscular HGB Conc 32.8 g/dl (32-36); Mean Corpuscular Hemoglobin 28.5 pg (26-34); Mean Platelet Volume 11.1 fl (7.4-10.4); Monocytes Absolute Auto 0.6 K/mm3 (0.1-0.6); Monocytes Percent Auto 5.4 % (2.6-8.5); Neutrophils Absolute Auto 9.7 K/mm3 (1.3-6.7); Neutrophils Percent Auto 82.9 % (45.5-73.1); Platelet Count Result 294 k/mm3 (150-375); Red Blood Count 2.84 M/mm3 (4.6-6.20); Red Cell Distribution Width 15.6 % (11.5-14.5); White Blood Count 11.7 K/mm3 (4.5-10.0)
[2020-11-24 06:24] LABS: Albumin Level 2.2 g/dL (3.5-5.1); Anion Gap 3 mmol/L (8-16); Blood Urea Nitrogen 33 mg/dL (9-20); Calcium 7.4 mg/dL (8.4-10.2); Carbon Dioxide 27 mmol/L (22-30); Chloride 94 mmol/L (98-107); Estimated CRCL calculation 97 ml/min; Estimated Glomerular Filt Rate > 60; Glucose 156 mg/dL (75-110); Magnesium 1.5 mg/dL (1.6-2.3); Phosphorus 3.2 mg/dL (2.5-4.5); Potassium 3.4 mmol/L (3.4-5.0); Sodium 124 mmol/L (137-145)
[2020-11-24 07:52] LABS: Glucose Point of Care 172 (65-105)
[2020-11-24] MEDS: ALBUMIN HUMAN 25% 25 GM/100 ML 100 ML IVPB ×2 (08:15→17:33)
[2020-11-24] MEDS: BUMETANIDE INJ 1 MG/4 ML VIAL IV PUSH ×2 (08:16→17:34)
[2020-11-24] MEDS: KETOROLAC 0.5% OP SOLN 5 ML BOTTLE 1 DROP EACH EYE ×2 (08:16→20:12)
[2020-11-24] MEDS: APIXABAN 5 MG TABLET PO ×2 (08:31→17:33)
[2020-11-24 09:04] VITALS: BP 120/72; PULSE 86; RESP 18; TEMP 35.8; O2SAT 96
[2020-11-24 11:23] VITALS: BMI 10.0
--- NOTE | 2020-11-24 11:52 | P.PNNP_ITS ---
Progress Note: A&P Assessment and Plan (1) Hyponatremia: Code(s): E87.1 - Hypo-osmolality and hyponatremia Status: Acute Assessment and Plan: * present as far back as September 2020 but normal in May 2020 * TSH and cortisol level x 2 okay * only real lung issue is his history of PEs so this could make susceptible to low sodium levels * no neurological issues to speak of (i.e. brain tumors, head injury...etc) * more likely related to his volume overload/swelling/edema * continue fluid restriction for now (2) Anasarca: Code(s): R60.1 - Generalized edema Status: Acute Assessment and Plan: * this is quite severe * lipomas compressing IVC leading to impaired venous drainage [(as suggested by imaging)?] * component of pulmonary HTN secondary to pulmonary emboli(?) * hypoalbuminemia likely playing a role; only mild proteinuria noted * continue IV albumin + IV bumex for now . (3) Hypoalbuminemia: Code(s): E88.09 - Other disorders of plasma-protein metabolism, not elsewhere classified Status: Acute Assessment and Plan: * as noted by labs * likely due to poor oral intake complicated by legs wounds * partly responsible for #2 * follow trend with IV albumin (4) Urinary tract infection: Code(s): N39.0 - Urinary tract infection, site not specified Status: Acute Assessment and Plan: * urine and blood (1 out of 2) cultures with Klebsiella * on antibiotic therapy (5) Chronic anemia: Code(s): D64.9 - Anemia, unspecified Status: Acute Assessment and Plan: * likely due to infection/inflammation * follow trend of H/H Will continue to follow. Subjective Date/time seen: 11/24/20 11:52 Does not appear swelling/edema is any better and despite IV albumin + IV bumex, no significant diuresis noted (I/Os not net negative) in the last 24 - 48 hours; seems comfortable when he is laying flate in bed. Exam Narrative: Exam Narrative: General: WD/WN male laying in bed Heart: normal S1 and S2; no rub Lungs: clear to auscultation Abdomen: soft, nontender, nondistended, positive bowel sounds Extremities: no cyanosis or clubbing; edema from chest down Skin: right calf/quintana rash noted Objective Data Vital Signs Vital Signs: Vital Signs Temp Pulse Resp BP Pulse Ox 11/24/20 09:04 35.8 C L 86 18 120/72 96 11/24/20 05:59 36.4 C L 97 20 128/67 98 11/23/20 20:00 37.4 C 99 16 127/64 96 11/23/20 14:00 35.8 C L 99 18 136/63 98 Intake/Output Intake/Output: Intake & Output 11/21/20 11/22/20 11/23/20 11/24/20 23:59 23:59 23:59 23:59 Intake Total 1500 2930 2100 300 Output Total 600 1550 600 150 Balance 900 1380 1500 150 Meds/Results Medications: Active Medications Generic Name Dose Route Start Last Admin Trade Name Shelia PRN Reason Stop Dose Admin Apixaban 5 mg 11/21/20 18:15 11/24/20 08:31 Apixaban 5 Mg Tablet PO 12/22/20 18:16 5 mg BID ABDIRASHID Administration Bumetanide 1 mg 11/22/20 17:00 11/24/20 08:16 Bumetanide Inj 1 Mg/4 Ml Vial IV PUSH 1 mg BID ABDIRASHID Administration Clotrimazole 1 applic 11/24/20 09:00 Betamethasone/Clotrimazole Cr 15 Gm Tube TOPICAL DAILY [facility] Dextrose 12.5 gm 11/21/20 18:06
--- NOTE | 2020-11-24 11:52 | PM.PNNEP ---
Progress Note: A&P Assessment and Plan (1) Hyponatremia: Code(s): E87.1 - Hypo-osmolality and hyponatremia Status: Acute Assessment and Plan: present as far back as September 2020 but normal in May 2020 TSH and cortisol level x 2 okay only real lung issue is his history of PEs so this could make susceptible to low sodium levels no neurological issues to speak of (i.e. brain tumors, head injury...etc) more likely related to his volume overload/swelling/edema continue fluid restriction for now (2) Anasarca: Code(s): R60.1 - Generalized edema Status: Acute Assessment and Plan: this is quite severe lipomas compressing IVC leading to impaired venous drainage [(as suggested by imaging)?] component of pulmonary HTN secondary to pulmonary emboli(?) hypoalbuminemia likely playing a role; only mild proteinuria noted continue IV albumin + IV bumex for now . (3) Hypoalbuminemia: Code(s): E88.09 - Other disorders of plasma-protein metabolism, not elsewhere classified Status: Acute Assessment and Plan: as noted by labs likely due to poor oral intake complicated by legs wounds partly responsible for #2 follow trend with IV albumin (4) Urinary tract infection: Code(s): N39.0 - Urinary tract infection, site not specified Status: Acute Assessment and Plan: urine and blood (1 out of 2) cultures with Klebsiella on antibiotic therapy (5) Chronic anemia: Code(s): D64.9 - Anemia, unspecified Status: Acute Assessment and Plan: likely due to infection/inflammation follow trend of H/H Will continue to follow. Subjective Date/time seen: 11/24/20 11:52 Does not appear swelling/edema is any better and despite IV albumin + IV bumex, no significant diuresis noted (I/Os not net negative) in the last 24 - 48 hours; seems comfortable when he is laying flate in bed. Exam Narrative: Exam Narrative: General: WD/WN male laying in bed Heart: normal S1 and S2; no rub Lungs: clear to auscultation Abdomen: soft, nontender, nondistended, positive bowel sounds Extremities: no cyanosis or clubbing; edema from chest down Skin: right calf/quintana rash noted Objective Data Vital Signs Vital Signs: Vital Signs Temp Pulse Resp BP Pulse Ox 11/24/20 09:04 35.8 C L 86 18 120/72 96 11/24/20 05:59 36.4 C L 97 20 128/67 98 11/23/20 20:00 37.4 C 99 16 127/64 96 11/23/20 14:00 35.8 C L 99 18 136/63 98 Intake/Output Intake/Output: Intake & Output 11/21/20 11/22/20 11/23/20 11/24/20 23:59 23:59 23:59 23:59 Intake Total 1500 2930 2100 300 Output Total 600 1550 600 150 Balance 900 1380 1500 150 Meds/Results Medications: Active Medications Generic Name Dose Route Start Last Admin Trade Name Freq PRN Reason Stop Dose Admin Apixaban 5 mg 11/21/20 18:15 11/24/20 08:31 Apixaban 5 Mg Tablet PO 12/22/20 18:16 5 mg BID ABDIRASHID Administration Bumetanide 1 mg 11/22/20 17:00 11/24/20 08:16 Bumetanide Inj 1 Mg/4 Ml Vial IV PUSH 1 mg BID ABDIRASHID Administration Clotrimazole 1 applic 11/24/20 09:00 Betamethasone/Clotrimazole Cr 15 Gm Tube TOPICAL DAILY ABDIRASHID Dextrose 12.5 gm 11/21/20 18:06 Dextrose 50% 25 Gm/50 Ml Syringe IV PUSH PRN PRN Hypoglycemia Protocol Glucagon 1 mg 11/21/20 18:06 Glucagon For Inj 1 Mg Vial IM PRN PRN Hypoglycemia Protocol Glucose 15 gm 11/21/20 18:06 Glucose Oral Gel 15 Gm Of Glucse In 37.5 Gm Tube PO PRN PRN Hypoglycemia Protocol Imipenem/Cilastatin Sodium 500 mg in 100 mls @ 300 mls/hr 11/21/20 17:00 11/24/20 07:00 Primaxin 500 Mg/D5w 100 Ml IVPB Infused Q6HR ABDIRASHID Infusion Dextrose 1,000 mls @ 100 mls/hr 11/21/20 18:06 Dextrose 5% 1,000 Ml IVPB PRN PRN Hypoglycemia Protocol Albumin Human 100 mls @ 60 mls/hr 11/22/20 17:00 11/24/20 10:00 Albutein IVPB In
[2020-11-24] MEDS: BETAMETHASONE/CLOTRIMAZOLE CR 15 GM TUBE 1 APPLIC TOPICAL (11:56)
[2020-11-24] MEDS: SILVERGEL (ELTA) 45 ML 1 APPLIC TOPICAL (11:56)
--- NOTE | 2020-11-24 12:05 | PM.IMPN ---
Progress Note: A&P Assessment and Plan (1) Septicemia: Code(s): A41.9 - Sepsis, unspecified organism Status: Acute Assessment and Plan: Sepsis secondary to Klebsiella continue current IV antibiotics. (2) Anasarca: Code(s): R60.1 - Generalized edema Status: Acute Assessment and Plan: Patient is markedly edematous. Echocardiogram 10/05/2020 show hyperdynamic appearing LV function with EF of 65-70% and normal diastolic function. The right ventricular chamber size dimension was normal as well. No mention of cirrhosis by CT Abdomen on 10/04/21 but does show a large right sided abdominal lipoma ([id number]) that appears to be compressing the IVC. This could be causing increase in venous pressure causing the massive edema. Also consider nephrotic syndrome from his DM with the 2+ protienuria and albumin 2.2. Currently on IV diuretics with poor UOP given the amount of edema. May need to go back to [place] to have definite surgical treatment. Or stent placement. Will consider a CTA for the severity of stenosis if okay with nephrology (3) Cellulitis of leg, right: Code(s): L03.115 - Cellulitis of right lower limb Status: Acute Assessment and Plan: Continue antibiotic monitor CBC (4) Hyponatremia: Code(s): E87.1 - Hypo-osmolality and hyponatremia Status: Acute Assessment and Plan: Na 125 on admission worsening today nephrology following diuresis and IV albumin. (5) Urinary tract infection: Code(s): N39.0 - Urinary tract infection, site not specified Status: Acute Assessment and Plan: Continue antibiotics. (6) Hypoalbuminemia: Code(s): E88.09 - Other disorders of plasma-protein metabolism, not elsewhere classified Status: Acute Assessment and Plan: Hypoalbumin related to renal protein loss. . (7) Type 2 diabetes mellitus: Code(s): E11.9 - Type 2 diabetes mellitus without complications Status: Inactive Assessment and Plan: Insulin sliding scale. (8) Chronic anemia: Code(s): D64.9 - Anemia, unspecified Status: Acute Assessment and Plan: Most likely anemia of chronic disease follow-up SPEP Additional Plan Leaning toward transferring patient to [facility] will evaluate for today and make decision in a.m. Subjective Date/time seen: 11/24/20 12:05 Interval history: Patient seen and examined Patient still have significant edema currently on albumin and diuretics Patient denies fever headache chest pain I am seeing the patient for anasarca Exam Narrative: Exam Narrative: Alert Chest no wheeze crackles Abdomen nontender nondistended CVS S1 + S2 Significant bilateral Lower extremity edema Objective Data Vital Signs Vital Signs: Vital Signs - 24 hr 11/23/20 14:00 11/23/20 20:00 11/24/20 05:59 Temperature 96.5 F L 99.4 F 97.5 F L Pulse Rate 99 99 97 Respiratory Rate 18 16 20 Blood Pressure 136/63 127/64 128/67 Pulse Oximetry 98 96 98 11/24/20 09:04 Temperature 96.4 F L Pulse Rate 86 Respiratory Rate 18 Blood Pressure 120/72 Pulse Oximetry 96 Intake/Output Intake/Output: Intake & Output 11/21/20 11/22/20 11/23/20 11/24/20 23:59 23:59 23:59 23:59 Intake Total 1500 2930 2100 300 Output Total 600 1550 600 150 Balance 900 1380 1500 150 Meds/Results Medications: Active Medications Generic Name Dose Route Start Last Admin Trade Name Freq PRN Reason Stop Dose Admin Apixaban 5 mg 11/21/20 18:15 11/24/20 08:31 Apixaban 5 Mg Tablet PO 12/22/20 18:16 5 mg BID ABDIRASHID Administration Bumetanide 1 mg 11/22/20 17:00 11/24/20 08:16 Bumetanide Inj 1 Mg/4 Ml Vial IV PUSH 1 mg BID ABDIRASHID Administration Clotrimazole 1 applic 11/24/20 09:00 11/24/20 11:56 Betamethasone/Clotrimazole Cr 15 Gm Tube TOPICAL 1 applic DAILY ABDIRASHID Administration Dextrose 12.5 gm 11/21/20 18:06 Dextrose 50% 2
[2020-11-24] MEDS: INSULIN ASPART (*BKC) 100 UNITS/ML SUB-Q (12:20)
[2020-11-24 12:33] LABS: Glucose Point of Care 229 (65-105)
[2020-11-24 14:00] VITALS: BP 126/62; PULSE 99; RESP 20; TEMP 35.6; O2SAT 98
--- NOTE | 2020-11-24 15:39 | PC.NURSE ---
1, Patricia Miller clinical instructor for [employer], have reviewed and approve student nurse - Radha Blue's charting for the today
[2020-11-24 16:32] LABS: Glucose Point of Care 165 (65-105)
[2020-11-24 20:37] VITALS: BP 125/68; PULSE 94; RESP 18; TEMP 36.4; O2SAT 98
[2020-11-24 20:51] LABS: Glucose Point of Care 183 (65-105)
[2020-11-24 21:08] LABS: Vancomycin Trough 38.1 ug/mL (10.0-20.0)
[2020-11-25] MEDS: METOCLOPRAMIDE HCL 10 MG TABLET PO ×3 (05:11→18:04)
[2020-11-25 06:27] VITALS: BP 114/58; PULSE 85; RESP 17; TEMP 36.3; O2SAT 97
[2020-11-25 06:35] LABS: Osmolality, Urine 357 mOsm/kg (50-1200)
[2020-11-25 08:24] LABS: Glucose Point of Care 172 (65-105)
[2020-11-25] MEDS: KETOROLAC 0.5% OP SOLN 5 ML BOTTLE 1 DROP EACH EYE ×2 (09:36→20:25)
[2020-11-25] MEDS: APIXABAN 5 MG TABLET PO ×2 (09:36→18:04)
[2020-11-25] MEDS: BETAMETHASONE/CLOTRIMAZOLE CR 15 GM TUBE 1 APPLIC TOPICAL (09:39)
[2020-11-25] MEDS: SILVERGEL (ELTA) 45 ML 1 APPLIC TOPICAL (09:40)
[2020-11-25 10:12] VITALS: BP 121/62; PULSE 95; RESP 20; TEMP 35.9; O2SAT 100
--- NOTE | 2020-11-25 10:14 | PM.IMPN ---
Progress Note: A&P Assessment and Plan (1) Septicemia: Code(s): A41.9 - Sepsis, unspecified organism Status: Acute Assessment and Plan: Sepsis secondary to Klebsiella continue current IV antibiotics. (2) Anasarca: Code(s): R60.1 - Generalized edema Status: Acute Assessment and Plan: Patient is markedly edematous. Echocardiogram 10/05/2020 show hyperdynamic appearing LV function with EF of 65-70% and normal diastolic function. The right ventricular chamber size dimension was normal as well. No mention of cirrhosis by CT Abdomen on 10/04/21 but does show a large right sided abdominal lipoma ([id number]) that appears to be compressing the IVC. This could be causing increase in venous pressure causing the massive edema. Also consider nephrotic syndrome from his DM with the 2+ protienuria and albumin 2.2. Currently on IV diuretics with poor UOP given the amount of edema. May need to go back to [facility] to have definite surgical treatment. Or stent placement. Will consider a CTA for the severity of stenosis if okay with nephrology (3) Cellulitis of leg, right: Code(s): L03.115 - Cellulitis of right lower limb Status: Acute Assessment and Plan: Continue antibiotic monitor CBC (4) Hyponatremia: Code(s): E87.1 - Hypo-osmolality and hyponatremia Status: Acute Assessment and Plan: Na 125 on admission worsening today nephrology following diuresis and IV albumin. (5) Urinary tract infection: Code(s): N39.0 - Urinary tract infection, site not specified Status: Acute Assessment and Plan: Continue antibiotics. (6) Hypoalbuminemia: Code(s): E88.09 - Other disorders of plasma-protein metabolism, not elsewhere classified Status: Acute Assessment and Plan: Hypoalbumin related to renal protein loss. . (7) Type 2 diabetes mellitus: Code(s): E11.9 - Type 2 diabetes mellitus without complications Status: Inactive Assessment and Plan: Insulin sliding scale. (8) Chronic anemia: Code(s): D64.9 - Anemia, unspecified Status: Acute Assessment and Plan: Most likely anemia of chronic disease follow-up SPEP Additional Plan Leaning toward transferring patient to [facility] will evaluate for today and make decision in a.m. Subjective Date/time seen: 11/25/20 10:14 Interval history: Patient seen and examined Patient still have significant edema currently on albumin and diuretics Patient denies fever headache chest pain I am seeing the patient for anasarca Exam Narrative: Exam Narrative: Alert Chest no wheeze crackles Abdomen nontender nondistended CVS S1 + S2 Significant bilateral Lower extremity edema Objective Data Vital Signs Vital Signs: Vital Signs - 24 hr 11/25/20 13:25 11/25/20 22:40 11/26/20 05:34 Temperature 97.2 F L 97.8 F 97.6 F Pulse Rate 102 H 92 91 Respiratory Rate 24 H 17 16 Blood Pressure 138/73 129/63 124/67 Pulse Oximetry 98 98 96 Intake/Output Intake/Output: Intake & Output 11/23/20 11/24/20 11/25/20 11/26/20 23:59 23:59 23:59 23:59 Intake Total 2100 1920 1360 200 Output Total 600 150 800 Balance 1500 1770 560 200 Meds/Results Medications: Active Medications Generic Name Dose Route Start Last Admin Trade Name Freq PRN Reason Stop Dose Admin Apixaban 5 mg 11/21/20 18:15 11/26/20 08:13 Apixaban 5 Mg Tablet PO 12/22/20 18:16 5 mg BID ABDIRASHID Administration Bumetanide 1.5 mg 11/26/20 09:00 11/26/20 08:12 Bumetanide Inj 1 Mg/4 Ml Vial IV PUSH 1.5 mg BID ABDIRASHID Administration Clotrimazole 1 applic 11/24/20 09:00 11/26/20 08:13 Betamethasone/Clotrimazole Cr 15 Gm Tube TOPICAL 1 applic DAILY ABDIRASHID Administration Dextrose 12.5 gm 11/21/20 18:06 Dextrose 50% 25 Gm/50 Ml Syringe IV PUSH PRN PRN Hypoglycemia Protocol Glucagon 1 mg 11/21/20 18:06 Glucag
[2020-11-25] MEDS: ALBUMIN HUMAN 25% 25 GM/100 ML 100 ML IVPB ×2 (10:57→18:03)
[2020-11-25] MEDS: BUMETANIDE INJ 1 MG/4 ML VIAL IV PUSH ×2 (10:57→18:04)
[2020-11-25 12:01] LABS: Vancomycin Trough 26.9 ug/mL (10.0-20.0)
--- NOTE | 2020-11-25 12:23 | P.PNNP_ITS ---
Progress Note: A&P Assessment and Plan (1) Hyponatremia: Code(s): E87.1 - Hypo-osmolality and hyponatremia Status: Acute Assessment and Plan: * present as far back as September 2020 but normal in May 2020 * TSH and cortisol level (x 2) okay * only real lung issue is his history of PEs so this could make susceptible to low sodium levels * no neurological issues to speak of (i.e. brain tumors, head injury...etc) * more likely related to his volume overload/swelling/edema * continue fluid restriction for now (2) Anasarca: Code(s): R60.1 - Generalized edema Status: Acute Assessment and Plan: * this is quite severe * lipomas compressing IVC leading to impaired venous drainage [(as suggested by imaging)?] - surgical evaluation needed? - was following with [facility] previously * component of pulmonary HTN secondary to pulmonary emboli(?) * hypoalbuminemia likely playing a role; only mild proteinuria noted * continue IV albumin + IV bumex for now - will increase dosage of bumex and add metolazone . (3) Hypoalbuminemia: Code(s): E88.09 - Other disorders of plasma-protein metabolism, not elsewhere classified Status: Acute Assessment and Plan: * as noted by labs * likely due to poor oral intake complicated by legs wounds * partly responsible for #2 * follow trend with IV albumin (4) Urinary tract infection: Code(s): N39.0 - Urinary tract infection, site not specified Status: Acute Assessment and Plan: * urine and blood (1 out of 2) cultures with Klebsiella * on antibiotic therapy (5) Chronic anemia: Code(s): D64.9 - Anemia, unspecified Status: Acute Assessment and Plan: * likely due to infection/inflammation * follow trend of H/H Will continue to follow. Subjective Date/time seen: 11/25/20 12:23 No real significant change since the last time I saw him -- not much progress with regard to diuresis in an effort to improve whole body swelling/edema; no events overnight or earlier this AM. Exam Narrative: Exam Narrative: General: WD/WN male laying in bed Heart: normal S1 and S2; no rub Lungs: clear to auscultation Abdomen: soft, nontender, nondistended, positive bowel sounds Extremities: no cyanosis or clubbing; edema from chest down Skin: warm and intact Objective Data Vital Signs Vital Signs: Vital Signs Temp Pulse Resp BP Pulse Ox 11/25/20 10:12 35.9 C L 95 20 121/62 100 11/25/20 06:27 36.3 C L 85 17 114/58 L 97 11/24/20 20:37 36.4 C 94 18 125/68 98 Intake/Output Intake/Output: Intake & Output 11/22/20 11/23/20 11/24/20 11/25/20 23:59 23:59 23:59 23:59 Intake Total 2930 2100 1920 920 Output Total 1550 600 150 800 Balance 1380 1500 1770 120 Meds/Results Medications: Active Medications Generic Name Dose Route Start Last Admin Trade Name Boydq PRN Reason Stop Dose Admin Apixaban 5 mg 11/21/20 18:15 11/25/20 09:36 Apixaban 5 Mg Tablet PO 12/22/20 18:16 5 mg BID ABDIRASHID Administration Bumetanide 1 mg 11/22/20 17:00 11/25/20 10:57 Bumetanide Inj 1 Mg/4 Ml Vial IV PUSH 1 mg BID ABDIRASHID Administration Clotrimazole 1 applic 11/24/20 09:00 11/25/20 09:39 Betamethasone/Clotrima
--- NOTE | 2020-11-25 12:23 | PM.PNNEP ---
Progress Note: A&P Assessment and Plan (1) Hyponatremia: Code(s): E87.1 - Hypo-osmolality and hyponatremia Status: Acute Assessment and Plan: present as far back as September 2020 but normal in May 2020 TSH and cortisol level (x 2) okay only real lung issue is his history of PEs so this could make susceptible to low sodium levels no neurological issues to speak of (i.e. brain tumors, head injury...etc) more likely related to his volume overload/swelling/edema continue fluid restriction for now (2) Anasarca: Code(s): R60.1 - Generalized edema Status: Acute Assessment and Plan: this is quite severe lipomas compressing IVC leading to impaired venous drainage [(as suggested by imaging)?] - surgical evaluation needed? - was following with [facility] previously component of pulmonary HTN secondary to pulmonary emboli(?) hypoalbuminemia likely playing a role; only mild proteinuria noted continue IV albumin + IV bumex for now - will increase dosage of bumex and add metolazone . (3) Hypoalbuminemia: Code(s): E88.09 - Other disorders of plasma-protein metabolism, not elsewhere classified Status: Acute Assessment and Plan: as noted by labs likely due to poor oral intake complicated by legs wounds partly responsible for #2 follow trend with IV albumin (4) Urinary tract infection: Code(s): N39.0 - Urinary tract infection, site not specified Status: Acute Assessment and Plan: urine and blood (1 out of 2) cultures with Klebsiella on antibiotic therapy (5) Chronic anemia: Code(s): D64.9 - Anemia, unspecified Status: Acute Assessment and Plan: likely due to infection/inflammation follow trend of H/H Will continue to follow. Subjective Date/time seen: 11/25/20 12:23 No real significant change since the last time I saw him -- not much progress with regard to diuresis in an effort to improve whole body swelling/edema; no events overnight or earlier this AM. Exam Narrative: Exam Narrative: General: WD/WN male laying in bed Heart: normal S1 and S2; no rub Lungs: clear to auscultation Abdomen: soft, nontender, nondistended, positive bowel sounds Extremities: no cyanosis or clubbing; edema from chest down Skin: warm and intact Objective Data Vital Signs Vital Signs: Vital Signs Temp Pulse Resp BP Pulse Ox 11/25/20 10:12 35.9 C L 95 20 121/62 100 11/25/20 06:27 36.3 C L 85 17 114/58 L 97 11/24/20 20:37 36.4 C 94 18 125/68 98 Intake/Output Intake/Output: Intake & Output 11/22/20 11/23/20 11/24/20 11/25/20 23:59 23:59 23:59 23:59 Intake Total 2930 2100 1920 920 Output Total 1550 600 150 800 Balance 1380 1500 1770 120 Meds/Results Medications: Active Medications Generic Name Dose Route Start Last Admin Trade Name Freq PRN Reason Stop Dose Admin Apixaban 5 mg 11/21/20 18:15 11/25/20 09:36 Apixaban 5 Mg Tablet PO 12/22/20 18:16 5 mg BID ABDIRASHID Administration Bumetanide 1 mg 11/22/20 17:00 11/25/20 10:57 Bumetanide Inj 1 Mg/4 Ml Vial IV PUSH 1 mg BID ABDIRASHID Administration Clotrimazole 1 applic 11/24/20 09:00 11/25/20 09:39 Betamethasone/Clotrimazole Cr 15 Gm Tube TOPICAL 1 applic DAILY ABDIRASHID Administration Dextrose 12.5 gm 11/21/20 18:06 Dextrose 50% 25 Gm/50 Ml Syringe IV PUSH PRN PRN Hypoglycemia Protocol Glucagon 1 mg 11/21/20 18:06 Glucagon For Inj 1 Mg Vial IM PRN PRN Hypoglycemia Protocol Glucose 15 gm 11/21/20 18:06 Glucose Oral Gel 15 Gm Of Glucse In 37.5 Gm Tube PO PRN PRN Hypoglycemia Protocol Imipenem/Cilastatin Sodium 500 mg in 100 mls @ 300 mls/hr 11/21/20 17:00 11/25/20 13:54 Primaxin 500 Mg/D5w 100 Ml IVPB Infused Q6HR ABDIRASHID Infusion Dextrose 1,000 mls @ 100 mls/hr 11/21/20 18:06 Dextrose 5% 1,000 Ml IVPB PRN
[2020-11-25 12:24] LABS: Glucose Point of Care 179 (65-105)
[2020-11-25 13:07] VITALS: BMI 10.0
[2020-11-25 13:25] VITALS: BP 138/73; PULSE 102; RESP 24; TEMP 36.2; O2SAT 98
--- NOTE | 2020-11-25 14:01 | PC.NURSE ---
On 11/25/20, the student, [Arcelia Masterson ], provided care and completed [facility] documentation on this patient. I have reviewed the student's documentation and agree with the findings.
[2020-11-25 16:26] LABS: Glucose Point of Care 182 (65-105)
[2020-11-25 22:40] VITALS: BP 129/63; PULSE 92; RESP 17; TEMP 36.6; O2SAT 98
[2020-11-25 23:12] LABS: Glucose Point of Care 144 (65-105)
[2020-11-26 00:29] LABS: Vancomycin Trough 22.4 ug/mL (10.0-20.0)
[2020-11-26 05:04] LABS: Albumin 1.7 g/dL (3.8-4.8); Alpha 1 Globulin 0.4 g/dL (0.2-0.3); Alpha 2 Globulin 0.8 g/dL (0.5-0.9); Beta 1 Globulin 0.3 g/dL (0.4-0.6); Gamma Globulin 0.5 g/dL (0.8-1.7); Protein, Total 3.9 g/dL (6.1-8.1)
[2020-11-26 05:34] VITALS: BP 124/67; PULSE 91; RESP 16; TEMP 36.4; O2SAT 96
[2020-11-26 06:25] LABS: Albumin Level 2.4 g/dL (3.5-5.1); Anion Gap 3 mmol/L (8-16); Blood Urea Nitrogen 36 mg/dL (9-20); Calcium 7.7 mg/dL (8.4-10.2); Carbon Dioxide 29 mmol/L (22-30); Chloride 94 mmol/L (98-107); Estimated CRCL calculation 106 ml/min; Estimated Glomerular Filt Rate > 60; Glucose 154 mg/dL (75-110); Potassium 3.1 mmol/L (3.4-5.0); Sodium 126 mmol/L (137-145)
[2020-11-26] MEDS: METOCLOPRAMIDE HCL 10 MG TABLET PO ×3 (07:00→17:16)
[2020-11-26 07:43] LABS: Hematocrit 22.8 % (42.0-52.0); Hemoglobin 7.4 g/dL (14.0-18.0); Mean Corpuscular HGB Conc 32.5 g/dl (32-36); Mean Corpuscular Hemoglobin 28.5 pg (26-34); Mean Corpuscular Volume 87.7 fl (80-100); Mean Platelet Volume 11.5 fl (7.4-10.4); Platelet Count Result 281 k/mm3 (150-375); Red Cell Distribution Width 15.7 % (11.5-14.5); White Blood Count 12.2 K/mm3 (4.5-10.0)
[2020-11-26 07:53] LABS: Glucose Point of Care 146 (65-105)
[2020-11-26] MEDS: BUMETANIDE INJ 1 MG/4 ML VIAL 1.5 MG IV PUSH ×2 (08:12→17:16)
[2020-11-26] MEDS: KETOROLAC 0.5% OP SOLN 5 ML BOTTLE 1 DROP EACH EYE ×2 (08:13→21:38)
[2020-11-26] MEDS: APIXABAN 5 MG TABLET PO ×2 (08:13→17:16)
[2020-11-26] MEDS: ALBUMIN HUMAN 25% 25 GM/100 ML 100 ML IVPB ×2 (08:13→17:16)
[2020-11-26] MEDS: metOLazone 2.5 MG TABLET PO (08:13)
[2020-11-26] MEDS: BETAMETHASONE/CLOTRIMAZOLE CR 15 GM TUBE 1 APPLIC TOPICAL (08:13)
[2020-11-26] MEDS: SILVERGEL (ELTA) 45 ML 1 APPLIC TOPICAL (08:13)
[2020-11-26 08:14] LABS: Lymphocytes Absolute Manual 0.73 K/mm3 (1.1-4.5); Monocytes Absolute Manual 0.73 K/mm3 (0.1-0.90); Monocytes Percent Manual 6 % (3-9); Neutrophils Percent Manual 88 % (46-73); Platelet Estimate Adequate (Adequate); Total Cells Counted 100
[2020-11-26 08:15] LABS: Atypical Lymphocytes Present; Macrocytosis 1+ (NORMAL); Ovalocytes 1+ (NORMAL); Stomatocytes 1+ (NORMAL); Tear Drop Cells 1+ (NORMAL)
--- NOTE | 2020-11-26 11:09 | PM.DS ---
DS: Admitting Diagnosis Admitting Diagnosis Admitting Diagnosis: Generalized weakness DS: Discharge Diagnosis Discharge Diagnosis (1) Septicemia: Code(s): A41.9 - Sepsis, unspecified organism Status: Acute Assessment and Plan: Sepsis secondary to Klebsiella continue current IV antibiotics. Patient received 5 days of antibiotics the duration of antibiotic should be evaluated by the accepting facility (2) Anasarca: Code(s): R60.1 - Generalized edema Status: Acute Assessment and Plan: Patient is markedly edematous. Echocardiogram 10/05/2020 show hyperdynamic appearing LV function with EF of 65-70% and normal diastolic function. The right ventricular chamber size dimension was normal as well. No mention of cirrhosis by CT Abdomen on 10/04/21 but does show a large right sided abdominal lipoma ([id number]) that appears to be compressing the IVC. This could be causing increase in venous pressure causing the massive edema. Also consider nephrotic syndrome from his DM with the 2+ protienuria and albumin 2.2. Currently on IV diuretics with poor UOP given the amount of edema. plan back to [facility] to have definite surgical treatment. Or stent placement. May need CTA for the severity of stenosis if okay with nephrology transfer to [facility] for further evaluation and treatment (3) Cellulitis of leg, right: Code(s): L03.115 - Cellulitis of right lower limb Status: Acute Assessment and Plan: Continue antibiotic monitor CBC (4) Hyponatremia: Code(s): E87.1 - Hypo-osmolality and hyponatremia Status: Acute Assessment and Plan: nephrology following diuresis and IV albumin. Patient was on IV abdomen IV Bumex 1.5 mg twice a day (5) Urinary tract infection: Code(s): N39.0 - Urinary tract infection, site not specified Status: Acute Assessment and Plan: Continue antibiotics. (6) Hypoalbuminemia: Code(s): E88.09 - Other disorders of plasma-protein metabolism, not elsewhere classified Status: Acute Assessment and Plan: Hypoalbumin related to renal protein loss. . (7) Type 2 diabetes mellitus: Code(s): E11.9 - Type 2 diabetes mellitus without complications Status: Inactive Assessment and Plan: Insulin sliding scale. (8) Chronic anemia: Code(s): D64.9 - Anemia, unspecified Status: Acute Assessment and Plan: Most likely anemia of chronic disease follow-up SPEP Patient had been on Eliquis for recent DVT (9) Foot ulcer: Code(s): L97.509 - Non-pressure chronic ulcer of other part of unspecified foot with unspecified severity Status: Acute Assessment and Plan: Right foot dorsal aspect blister has ruptured patient was on antibiotic no improvement on medical therapy will get surgery evaluation Started as a blister week and a half before admission gradually worsening yesterday patient has blister with intact skin today the blisters have ruptured and showed deeper infection the blister was cleaned by wound care patient may need debridement will get an x-ray of the foot surgery was consulted accepting team notification was made DS: Summary Hospital Course Hospital Course: Chief Complaint: Weakness and low-sodium. Narrative: This is a 55-year-old male with type 2 diabetes mellitus, hypertension, and hyperlipidemia who presented to the emergency department earlier today via EMS from [facility] for evaluation of weakness and low sodium levels found on lab work today. I am familiar with the patient as he was admitted to our service twice in September 2020, initially for acute kidney injury due to volume depletion as a result of recent COVID infection. He was admitted about 10 days thereafter, once again with acute kidney injury in addition to DVT and pulmonary embolism. Imaging during that stay revealed large intra-abdominal masses with li
[2020-11-26 11:38] LABS: Glucose Point of Care 166 (65-105)
[2020-11-26 12:14] LABS: Vancomycin Trough 18.6 ug/mL (10.0-20.0)
[2020-11-26 14:00] VITALS: BP 122/68; PULSE 96; RESP 16; TEMP 36.2; O2SAT 100
--- NOTE | 2020-11-26 15:45 | PC.NURSE ---
Pt would like to wait until he gets transferred to [facility] for a surgical consult on his foot.
--- NOTE | 2020-11-26 20:00 | PC.NURSE ---
Report given to Yari at [facility].
[2020-11-26 20:20] LABS: Glucose Point of Care 199 (65-105)
[2020-11-26 21:19] VITALS: BP 130/56; PULSE 92; RESP 16; TEMP 36.4; O2SAT 97
[2020-11-26 21:40] VITALS: PULSE 92; RESP 16; O2SAT 97
[2020-11-26 22:57] LABS: Glucose Point of Care 182 (65-105)
== END 2020-11-27 04:50 | disposition other institution (70) | DRG 872 ==
LOC: ANHED 09:05 → ANH3MED 14:52
PROVIDERS: Internal Medicine; Internal Medicine Nephrology; Physician Assistant; Admitting Provider Internal Medicine; Emergency Provider Emergency Medicine; PCP Family Medicine; Visit Provider Internal Medicine
DX: A41.59 Other Gram-negative sepsis (principal); N39.0 Urinary tract infection, site not specified; L03.115 Cellulitis of right lower limb; E87.1 Hypo-osmolality and hyponatremia; B96.1 Klebsiella pneumoniae [K. pneumoniae] as the cause of diseases classified elsewhere; Z20.822 Contact with and (suspected) exposure to COVID-19; Z86.16 Personal history of COVID-19; D17.79 Benign lipomatous neoplasm of other sites; R60.1 Generalized edema; E11.621 Type 2 diabetes mellitus with foot ulcer; L97.519 Non-pressure chronic ulcer of other part of right foot with unspecified severity; S90.821A Blister (nonthermal), right foot, initial encounter; D63.8 Anemia in other chronic diseases classified elsewhere; I10 Essential (primary) hypertension; E88.09 Other disorders of plasma-protein metabolism, not elsewhere classified; E11.21 Type 2 diabetes mellitus with diabetic nephropathy; E78.5 Hyperlipidemia, unspecified; E11.319 Type 2 diabetes mellitus with unspecified diabetic retinopathy without macular edema; Z86.711 Personal history of pulmonary embolism; Z86.718 Personal history of other venous thrombosis and embolism; Z79.01 Long term (current) use of anticoagulants; Z85.46 Personal history of malignant neoplasm of prostate
CPT/HCPCS: 36415; 51701; 71045; 74176; 80048; 80053; 80069; 80074; 80202; 81001; 82533; 82550; 82570; 82948; 83036; 83605; 83735; 83880; 83930; 83935; 84100; 84155; 84156; 84165; 84295; 84300; 84439; 84443; 84540; 85025; 85610; 85730; 86140; 87040; 87077; 87086; 87088; 87186; 93005; 93306; 93970; 94762; 96365; 96366; 96375; 97110; 97161; 97165; 97530; 99285; A9270; C9803; J0692; J0743; J1815; J1940; J3370; P9047; U0003; U0005

== ENCOUNTER 2021-03-23 13:37 | Outpatient (CLI) | payer OTHER, SELFPAY ==
[2021-03-23 14:18] LABS: Hematocrit 32.9 % (42.0-52.0); Hemoglobin 10.3 g/dL (14.0-18.0); Mean Corpuscular HGB Conc 31.3 g/dl (32-36); Mean Corpuscular Hemoglobin 29.9 pg (26-34); Mean Corpuscular Volume 95.6 fl (80-100); Mean Platelet Volume 10.8 fl (7.4-10.4); Platelet Count Result 288 k/mm3 (150-375); Red Blood Count 3.44 M/mm3 (4.6-6.20); Red Cell Distribution Width 16.5 % (11.5-14.5); White Blood Count 5.6 K/mm3 (4.5-10.0)
[2021-03-23 14:36] LABS: Alanine Aminotransferase 20 U/L (4-50); Albumin Level 2.9 g/dL (3.5-5.1); Alkaline Phosphatase 68 U/L (38-126); Anion Gap 8 mmol/L (8-16); Aspartate Amino Transferase 30 U/L (17-59); Bilirubin,Total 0.3 mg/dL (0.2-1.3); Blood Urea Nitrogen 33 mg/dL (9-20); Calcium 8.6 mg/dL (8.4-10.2); Carbon Dioxide 24 mmol/L (22-30); Chloride 109 mmol/L (98-107); Estimated Glomerular Filt Rate > 60; Glucose 171 mg/dL (75-110); Potassium 4.1 mmol/L (3.4-5.0); Sodium 141 mmol/L (137-145)
== END 2021-03-23 13:38 | disposition home or self-care (01) ==
PROVIDERS: PCP Family Medicine; Visit Provider Nurse Practitioner Family
DX: D64.9 Anemia, unspecified (principal); E11.9 Type 2 diabetes mellitus without complications; E78.5 Hyperlipidemia, unspecified; E87.1 Hypo-osmolality and hyponatremia; N17.9 Acute kidney failure, unspecified
CPT/HCPCS: 36415; 80053; 85027

== ENCOUNTER 2021-04-16 11:02 | Outpatient (NON) | payer OTHER, SELFPAY ==
[2021-04-16 11:20] LABS: Hematocrit 29.8 % (42.0-52.0); Hemoglobin 9.3 g/dL (14.0-18.0); Mean Corpuscular HGB Conc 31.2 g/dl (32-36); Mean Corpuscular Hemoglobin 30.1 pg (26-34); Mean Corpuscular Volume 96.4 fl (80-100); Mean Platelet Volume 11.3 fl (7.4-10.4); Platelet Count Result 261 k/mm3 (150-375); Red Blood Count 3.09 M/mm3 (4.6-6.20); Red Cell Distribution Width 15.2 % (11.5-14.5); White Blood Count 5.8 K/mm3 (4.5-10.0)
[2021-04-16 11:30] LABS: Anion Gap 8 mmol/L (8-16); Blood Urea Nitrogen 20 mg/dL (9-20); Calcium 8.9 mg/dL (8.4-10.2); Carbon Dioxide 25 mmol/L (22-30); Chloride 106 mmol/L (98-107); Estimated Glomerular Filt Rate > 60; Glucose 130 mg/dL (75-110); Potassium 4.2 mmol/L (3.4-5.0); Sodium 139 mmol/L (137-145)
== END 2021-04-16 11:03 | disposition home or self-care (01) ==
PROVIDERS: PCP Family Medicine; Visit Provider Family Medicine
DX: R60.1 Generalized edema (principal)
CPT/HCPCS: 80048; 85027

== ENCOUNTER 2021-05-13 08:34 | Outpatient (CLI) | payer OTHER, SELFPAY ==
[2021-05-13 09:45] LABS: Hematocrit 30.4 % (42.0-52.0); Hemoglobin 9.2 g/dL (14.0-18.0); Mean Corpuscular HGB Conc 30.3 g/dl (32-36); Mean Corpuscular Hemoglobin 29.2 pg (26-34); Mean Corpuscular Volume 96.5 fl (80-100); Mean Platelet Volume 10.7 fl (7.4-10.4); Platelet Count Result 238 k/mm3 (150-375); Red Blood Count 3.15 M/mm3 (4.6-6.20); Red Cell Distribution Width 14.9 % (11.5-14.5); White Blood Count 5.4 K/mm3 (4.5-10.0)
[2021-05-13 09:58] LABS: Anion Gap 10 mmol/L (8-16); Blood Urea Nitrogen 36 mg/dL (9-20); Calcium 9.4 mg/dL (8.4-10.2); Carbon Dioxide 24 mmol/L (22-30); Chloride 106 mmol/L (98-107); Estimated Glomerular Filt Rate 57; Glucose 107 mg/dL (65-110); Potassium 4.5 mmol/L (3.4-5.0); Sodium 140 mmol/L (137-145)
== END 2021-05-13 08:35 | disposition home or self-care (01) ==
LOC: ANHLAB 08:36
PROVIDERS: PCP Family Medicine; Visit Provider Family Medicine
DX: R60.1 Generalized edema (principal)
CPT/HCPCS: 36415; 80048; 85027

== ENCOUNTER 2021-05-20 08:00 | Outpatient (RCR) | payer OTHER, SELFPAY ==
--- NOTE | 2021-05-10 08:37 | OTOPEVAL ---
OCCUPATIONAL THERAPY INITIAL EVALUATION REPORT 05/10/21 Thank you for referring Gómez Lozano to [facility].? The patient is scheduled to be seen for occupational therapy? 1x/week for 4 weeks. Please review, sign, date and return this plan of care KARINA. I agree with and certify that the following plan of care is medically necessary. Referring Physician Date Referring Provider: Blade Pantoja MD *OT Outpatient Evaluation Start: 05/10/21 07:42 Therapy Assessment Status Assessment Status Assessment Status Evaluation Outpatient Past Medical History Neurological History Hx Neurological Disorders No Significant History Cardiovascular History Hx Hypercholesterolemia Yes Hx Hypertension Yes Respiratory History Hx Pulmonary Embolism Yes: times 2 Hx Other Respiratory Disorders Yes: +COVID August 2020 Gastrointestinal History Hx Hernia Yes: 2 hernia surgeries when I was young Hx Other Gastrointestinal Disorders Yes: gastroparesis/ intraabdominal mass Genitourinary History Hx Prostatectomy Yes: removal with radiation post op 3 years ago Hx Renal Disease Yes: acute kidney failure Musculoskeletal History Hx Crutches or Walker Use Yes: walker with multiple Query Text:If Yes, Enter Crutches, assists per patient Walker, or Both in the Comment Hx Other Musculoskeletal Disorders Yes: generalized muscle weakness Hematological History Hx Hematological Disorders No Significant History Endocrine History Hx Diabetes Yes: very mind type 2 DM controlled by oral medication HEENT History Hx Eye Surgery Yes: Lasik L eye Hx Other HEENT Disorders Yes: diabetic retenopathy Integumentary History Hx Cellulitis Yes Reproductive History Hx Reproductive Disorders No Significant History Psychosocial History Hx Psychiatric Disorders No Significant History Pain History History of Any Previous or Ongoing No Significant History Instance of Pain Anesthesia History Hx Anesthesia Reactions No Significant History Other History Hx Cancer Yes: prostate Evaluation Information Problem Diagnosis Malaise, generalized edema Subjective Information Around 2019, pt Query Text:As Reported By Patient/ was dx with COVID. Went to ED Family and was found to have blood clots in his legs and lungs as well as a benign and inoperable mass in his abdomen. He was transferred to [place]. Since Aug 2020 he has been in and ou
--- NOTE | 2021-05-10 09:44 | PTOPEVAL ---
Thank you for referring Gómez Lozano to [facility].? The patient is scheduled to be seen for therapy? 2 x/week for 8 weeks. Please review, sign, date and return this plan of care KARINA. I agree with and certify that the following plan of care is medically necessary. Referring Physician Date Attending Provider: Blade Pantoja MD Problem Diagnosis Malaise, generalized edema Onset Aug 2020 Additional Evaluation Detail He was admitted to the hospital Aug 2020 due to COVID , then was found to have an abdominal mass. He was [facility] until DC home on 03/08/21. Subjective Information HH therapy from March 16- April Query Text:As Reported By Patient/ 2nd. He has been performing Family HEP and walking around the house. He has 5 step with samuel rails to enter the house. He fell on the steps when he first came home. He is performing the patient sitter, but requires increased time. He is not working or performing the grocery shopping. He does not carrying items up/down the steps. His hobbies consist of playing poker and sedentary type activities. Pain Assessment Self Report Self Report Pain Level 0 Lower Extremity Muscle Strength Testing Hip Strength Bilateral Hip Flexion Strength 3 Fair Hip Extension Strength 3 Fair Hip Abduction Strength 3- Fair - Hip Strength Comments able to perform bridging motion Knee Strength Bilateral Knee Flexion Strength 3+ Fair + Knee Extension Strength 4- Good - Knee Strength Comments hamstring tested supine Ankle Strength Bilateral Ankle Dorsiflexion Strength 3- Fair - Ankle Plantarflexion Strength 4 Good Ankle Strength Comments unable to perform full range samuel heel raises Muscle Length Testing Muscle Length Testing Two-Joint Hip Flexor Shortened Muscles Short (R) Iliopsoas,Short (L) Iliopsoas,Short (R) Rectus Femoris,Short (L) Rectus Femoris,Short (R) Ilial Tib Band,Short (L) Ilial Tib Band Balance Assessment Paulson Balance Assessment PAULSON Balance Evaluation Total Score (41/56 points) Comments
--- NOTE | 2021-05-27 09:19 | PCPTNOTE ---
The patient treatment was not able to be completed on 05/27/21 due to patient passing away in the ED.
--- NOTE | 2021-06-01 08:50 | PCPTNOTE ---
Gómez's therapy visits are cancelled due to he . Will DC chart.
--- NOTE | 2021-06-01 11:56 | PCOTNOTE ---
OCCUPATIONAL THERAPY DISCHARGE NOTIFICATION 06/01/21 Patient:Gómez Lozano Date of :1965 Gómez's chart is being discharged from this clinic due to patient passing away. Patient?s initial visit was on 05/10/2021 07:30 and he had a total of 2 OT visits. Thank you for [facility] this [facility]. Please review, sign, date and return this discharge summary KARINA. I have been updated about the patient's current status and I agree with discharge from the above service at this time. Referring Physician Date Referring Provider: Blade Pantoja MD
--- NOTE | 2021-06-01 12:04 | PCPTNOTE ---
Admitting Provider: Attending Provider: Blade Pantoja MD Patient:Gómez Lozano Date of :1965 Discharge Note Patient has not returned for any further treatments due to he . He was treated for physical therapy for 3 visits from 05/10/21 to 05/18/21. His therapy goals have not been achieved due change in status. Thank you for referring this patient to [facility]. Please review, sign, date and return this discharge summary KARINA. I have been updated about the patient's current status and I agree with discharge from the above service at this time. Referring Physician Date
== END 2021-06-01 16:08 | disposition home or self-care (01) ==
LOC: ANHPT 08:00
PROVIDERS: PCP Family Medicine; Visit Provider Family Medicine
DX: R27.0 Ataxia, unspecified (principal); R53.81 Other malaise; R60.1 Generalized edema
CPT/HCPCS: 97110; 97163; 97165

== ENCOUNTER 2021-05-24 20:49 | Emergency (ER) | payer OTHER, SELFPAY ==
--- NOTE | 2021-05-24 20:50 | PC.NURSE ---
2051: BVM started for airway support. 2104: intabation started at 2104. 7.5 ET tube measuring at 23 at the lip. placed by RADHA Mcneal.
--- NOTE | 2021-05-24 21:09 | ECG_ITS ---
Measurements Intervals [place] Rate: 55 P: [place]: 0 QRS: 133 QRSD: 169 T: 0 QT: 432 QTc: 414 Interpretive Statements SINUS RHYTHM WITH SECOND DEGREE AV BLOCK, TYPE I RIGHT BUNDLE BRANCH BLOCK SUBTLE ST ELEVATION IN INFERIOR LEADS- CONSIDER ACUTE INJURY BASELINE ARTIFACT- II, AVF, V3-V6 ABNORMAL ECG Electronically Signed On 05-25-2021 6:14:25 CDT by Yoseph Mccray D.O.
--- NOTE | 2021-05-24 21:26 | ED.GENADULT ---
HPI - General Adult General Chief complaint: Cardiac Arrest/CPR Stated complaint: Unresponsive Time Seen by Provider: 05/24/21 21:09 Source: family Mode of arrival: ambulatory History of Present Illness HPI narrative: Patient is 56 years old white male called his brother because of difficulty breathing, about 2 miles prior to arrival to the emergency room patient became unresponsive. CODE BLUE was started while patient still in the parking lot. Related Data Home Medications Medication Instructions Recorded Confirmed Januvia 100 mg PO DAILY 09/20/20 04/22/21 atorvastatin 20 mg PO DAILY 09/20/20 04/22/21 ketorolac 1 drp BID 10/04/20 04/22/21 multivitamin 1 tablet PO DAILY 04/08/21 04/22/21 Allergies Allergy/AdvReac Type Severity Reaction Status Date / Time lactose Allergy Intermediate DIARRHEA Verified 04/22/21 16:10 Penicillins Allergy Unknown Rash Verified 04/22/21 16:10 metformin AdvReac Diarrhea Verified 04/22/21 16:10 Review of Systems Review of Systems: ROS unobtainable: Yes unobtainable due to medical condition [facility] Past Medical History Medical History Adult BMI 35.0-35.9 kg/sq m Ataxia BMI 33.0-33.9,adult BMI 38.0-38.9,adult Cholelithiasis Chronic anemia Chronic anticoagulation COVID-19 Diabetic retinopathy Essential hypertension Gastroparesis History of prostate cancer Status post prostatectomy and radiation therapy. Intraabdominal mass Large intra-abdominal lipomas and/or lipomatous masses with the largest measuring 23 x 25 x 37 cm. Biopsy at [facility] in September 2020 was inconclusive.? Lesion of adrenal gland Chest CTA on 10/04/20 shows bilateral adrenal gland lesions, 2.5cm on the left and 2.1cm on right. Mixed hyperlipidemia ALF (obstructive sleep apnea) Pulmonary emboli (~09/2020) Right leg DVT (~09/2020) Type 2 diabetes mellitus Recent hemoglobin A1c was 5.8%. Surgical History Surgical History History of inguinal hernia repair History of prostatectomy Status post LASIK surgery of both eyes Family History Family History Father Family history of cardiovascular disease Family history of malignant neoplasm of kidney Diabetes mellitus Hypertension Hypercholesterolemia Grandparent Family history of cardiovascular disease Mother Hypercholesterolemia Hypertension Father Hypertension Diabetes mellitus High cholesterol Kidney malignancy Mother High cholesterol Hypertension Sibling No problems noted. Social History Social History Social History: Surrogate decision maker: Nata Magdaleno, mother. Code status: Full code. Second hand tobacco smoke exposure: No Alcohol intake: never Substance use: never Substance use type: does not use Additional living arrangements comments: Lives in his own home in [place]. 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 Gender identity (if verbalized by the patient): Male Spiritual care concerns: No Exam Narrative: General appearance: Well-developed, well-nourished, obese, unresponsive, pulseless Skin: Normal color, warm Head: Normocephalic, nontraumatic Eyes: Clear conjunctiva, pupils are wIDe, dilated and nonreactive to light ENT: Oropharynx normal, ears normal, nose normal Chest and respiratory: Airway patent,, no respiratory effort Heart: No pulse, no heart sounds Abdomen: Soft, , large abdomen, possible ascites Vascular: No pulse Neurologic: Unresponsive
[2021-05-24 21:37] LABS: Basophils Absolute Auto 0.1 K/mm3 (0.0-0.1); Basophils Percent Auto 0.4 % (0.2-1.2); Eosinophils Absolute Auto 0.1 K/mm3 (0-0.3); Eosinophils Percent Auto 0.7 % (0-4.4); Hematocrit 31.1 % (42.0-52.0); Hemoglobin 8.7 g/dL (14.0-18.0); Immature Granulocyte Absolute 0.78 K/mm3 (0.00-0.031); Immature Granulocyte Percent A 5.5 % (0-0.5); Lymphocytes Absolute Auto 1.01 K/mm3 (0.9-3.2); Lymphocytes Percent Auto 7.1 % (18.3-44.2); Mean Corpuscular Hemoglobin 28.6 pg (26-34); Mean Corpuscular Volume 102.3 fl (80-100); Mean Platelet Volume 11.3 fl (7.4-10.4); Monocytes Absolute Auto 1.2 K/mm3 (0.1-0.6); Monocytes Percent Auto 8.2 % (2.6-8.5); Neutrophils Percent Auto 78.1 % (45.5-73.1); Nucleated Red Blood Cells Perc 0.2 % (0.0-0.2); Platelet Count Result 251 k/mm3 (150-375); Red Blood Count 3.04 M/mm3 (4.6-6.20); Red Cell Distribution Width 14.6 % (11.5-14.5); White Blood Count 14.1 K/mm3 (4.5-10.0)
[2021-05-24 21:47] LABS: INR 2.2; Prothrombin Time 24.2 Seconds (11.1-14.7)
[2021-05-24 21:48] LABS: Partial Thromboplastin Time 42.2 SECONDS (22.3-36.8)
[2021-05-24 21:55] LABS: NT Pro B Type Natriuretic Pept 8430 pg/mL (5-100)
[2021-05-24 22:01] LABS: Alanine Aminotransferase 40 U/L (4-50); Albumin Level 2.9 g/dL (3.5-5.1); Alkaline Phosphatase 89 U/L (38-126); Anion Gap 21 mmol/L (8-16); Aspartate Amino Transferase 52 U/L (17-59); Bilirubin,Total 0.3 mg/dL (0.2-1.3); Blood Urea Nitrogen 31 mg/dL (9-20); Carbon Dioxide 12 mmol/L (22-30); Chloride 104 mmol/L (98-107); Estimated Glomerular Filt Rate 45; Glucose 369 mg/dL (65-110); Potassium 3.4 mmol/L (3.4-5.0); Sodium 137 mmol/L (137-145)
--- NOTE | 2021-05-24 22:02 | WPDCARDPROC ---
Cardiac Cath Procedure Note Date of procedure:: 05/24/21 Performing physician:: Ekaterina Bain MD
--- NOTE | 2021-05-24 22:02 | PM.CNCAR ---
Assessment and Plan Additional Plan 1- cardio pulmonary arrest 2- severe ascites. 3- history of pulmonary embolism and DVT on anticoagulation 4- history of COVID September 2020 5- history of metastatic prostate cancer. 6- mal nutrition with low albumin patient presents with cardiopulmonary arrest. I doubt it is a STEMI. long discussion with the family, ER physician about code status and eventually family agreeing for no CPR and no cording. patient lost his pulse and went into sinus arrest. patient was pronounced shortly after changing the code status. this is a highly critical care consult discussing end of life issues, management. History of Present Illness History of Present Illness Consult date/time: Date of /09/21 22:02 Requesting physician: Rocco Mcneal MD Consult reason: Other ( cardiac arrest) Reason For Visit: Unresponsive Narrative: this is 56-year-old patient with history of history of right renal mass suspicious for cancer, obesity, diabetes, COVID in June 2020, low albumin, pulmonary embolism on anticoagulation, DVT who apparently called his brother because of shortness of breath. On their way to the emergency room and before arriving to the emergency room apparently patient had cardiac arrest. Arrive to the ER and four cardiac arrests. EKG analyzed and reviewed myself shows junctional rhythm alternating with sinus rhythm, right bundle-branch block. right bundle branch block is new compared to old EKG. labor gang supervisor staff went down to get the patient however I was called to the ER because his heart rate was dropping his blood pressure was dropping and upon arrival there patient lost his pulse and CPR started using the Bret machine. at that time I called the family to the bedside his mom and his brother and discussed with them the goal of treatment. I discussed with the family the poor prognosis given multiple cardiac arrests and the instability of his hemodynamics. CPR was done for the 5th time and denominational of rhythm. after discussing with the family they agreed not to do further CPR. I did not feel that the patient is stable enough to go to the labor gang supervisor. his mom stated that since COVID he has been in an out of the hospital and to rehab and has being at home for less than a couple months. looking at the patient he has severe ascites and abdominal distention. he was totally unresponsive. after a few minutes patient lost his pulse again and dropped his blood pressure and patient was pronounced . family updated. creatinine 1.6, hemoglobin 8.7, troponin 0.44 ejection fraction 65% November 2020 Review of Systems Review of Systems: ROS unobtainable: Yes unobtainable due to endotracheal tube PMFSH Past Medical History Medical History Adult BMI 35.0-35.9 kg/sq m Ataxia BMI 33.0-33.9,adult BMI 38.0-38.9,adult Cholelithiasis Chronic anemia Chronic anticoagulation COVID-19 Diabetic retinopathy Essential hypertension Gastroparesis History of prostate cancer Status post prostatectomy and radiation therapy. Intraabdominal mass Large intra-abdominal lipomas and/or lipomatous masses with the largest measuring 23 x 25 x 37 cm. Biopsy at [facility] in September 2020 was inconclusive.? Lesion of adrenal gland Chest CTA on 10/04/20 shows bilateral adrenal gland lesions, 2.5cm on the left and 2.1cm on right. Mixed hyperlipidemia LAF (obstructive sleep apnea) Pulmonary emboli (~09/2020) Right leg DVT (~09/2020) Type 2 diabetes mellitus Recent hemoglobin A1c was 5.8%. Surgical History Surgical History History of inguinal hernia repair History of prostatectomy Status post LASIK surgery of both eyes Family History Family History Father Family history of cardiovascular disease Family history of malignant neoplasm of kidney Diabetes
--- NOTE | 2021-05-24 22:38 | PC.NURSE ---
corner called at [phone]
--- NOTE | 2021-05-24 22:46 | PC.NURSE ---
Maisha gave permission to pull tubes out at [phone].
--- NOTE | 2021-05-24 22:59 | PC.NURSE ---
called MAT. pt not candidate at this time. referral number [id number]
--- NOTE | 2021-05-24 23:11 | PC.NURSE ---
TOD 2235 ELECTRIC GOLF CART REPAIRER NOTIFIED AND DECLINED CASE 2238 - OK TO PULL TUBES AND LET FAMILY BACK IF THEY WANT TO SEE THE PATIENT ASK TO GET DR SORTO TO SIGN CERTIFICATE MAT NOTIFIED 3122 - PATIENT IS NOT A CANDIDATE PER BLAINE - REF # [id number]
== END 2021-05-24 22:36 | disposition expired ==
PROVIDERS: Emergency Provider Emergency Medicine; PCP Family Medicine
DX: I21.3 ST elevation (STEMI) myocardial infarction of unspecified site (principal); I46.9 Cardiac arrest, cause unspecified; R18.8 Other ascites; E46 Unspecified protein-calorie malnutrition; C61 Malignant neoplasm of prostate; D64.9 Anemia, unspecified; E11.319 Type 2 diabetes mellitus with unspecified diabetic retinopathy without macular edema; I10 Essential (primary) hypertension; E11.43 Type 2 diabetes mellitus with diabetic autonomic (poly)neuropathy; K31.84 Gastroparesis; Z85.46 Personal history of malignant neoplasm of prostate; E78.2 Mixed hyperlipidemia; G47.33 Obstructive sleep apnea (adult) (pediatric); Z86.16 Personal history of COVID-19; Z86.711 Personal history of pulmonary embolism; Z79.4 Long term (current) use of insulin; Z86.718 Personal history of other venous thrombosis and embolism; E66.9 Obesity, unspecified; N28.89 Other specified disorders of kidney and ureter; Z79.01 Long term (current) use of anticoagulants; I44.1 Atrioventricular block, second degree; I45.10 Unspecified right bundle-branch block
CPT/HCPCS: 31500; 36415; 51702; 80053; 83880; 84484; 85025; 85610; 85730; 92950; 93005; 99285; J0171; J0461; J2001; J7030; J7120